=== PATIENT | female | born 1970 | race Caucasian/White ===

== ENCOUNTER 2020-06-07 12:35 | Outpatient (REF) | payer OTHER, SELFPAY ==
--- NOTE | 2020-06-07 12:43 | MM_ITS ---
EXAMINATION: MM SCREENING DIGITAL BREAST TOMOSYNTHESIS, BILATERAL CLINICAL INFORMATION: Screening. Asymptomatic. Family history breast cancer mother, age 46. The lifetime risk of breast cancer based on the Tyrer-Cuzick Model is 20%. COMPARISON: Mammography: 11/26/2018, 11/07/2017, 11/04/2016 TECHNIQUE: Digital breast tomosynthesis is performed in both the craniocaudal and mediolateral oblique views along with computer-aided detection (CAD). Synthesized 2D images are generated from the tomosynthesis. FINDINGS: The breasts are heterogeneously dense, which may obscure small masses (ACR BI-RADS breast composition Category c). Parenchymal pattern is similar to prior studies. There is no developing density or interval mass or architectural abnormality. There are scattered bilateral dermal calcifications again seen overlying the bilateral axilla. No suspicious calcifications. The skin contours are smooth. MM/MM tomosynthesis screening BI IMPRESSION: No significant changes from prior studies. ASSESSMENT: BI-RADS 2: Benign RECOMMENDATION: 1. Routine annual mammography screening. 2. The lifetime risk of breast cancer based on the Tyrer-Cuzick Model is 20%. Additional annual adjunct screening with breast MRI may be of benefit in women with a risk score of 20% or greater. This patient's information was entered into a reminder system with a target due date for their next mammogram.
== END 2020-06-07 12:36 | disposition home or self-care (01) ==
LOC: HO.MAMMO 12:35
PROVIDERS: PCP Nurse Practitioner Family; Visit Provider Nurse Practitioner Family
DX: Z12.31 Encounter for screening mammogram for malignant neoplasm of breast (principal)
CPT/HCPCS: 77063; 77067

== ENCOUNTER 2020-11-08 08:48 | Outpatient (REF) | payer OTHER, SELFPAY ==
[2020-11-08 09:20] LABS: COVID-19 Test Negative (Negative)
== END 2020-11-08 08:49 | disposition home or self-care (01) ==
LOC: HO.LAB 08:48
PROVIDERS: Visit Provider Internal Medicine
DX: Z20.822 Contact with and (suspected) exposure to COVID-19 (principal)
CPT/HCPCS: 36415; 87635; C9803

== ENCOUNTER 2021-10-27 11:35 | Inpatient (IN) | payer OTHER, SELFPAY ==
[2021-10-27 12:00] VITALS: BP 154/97; BP 168/90; PULSE 112; PULSE 113; RESP 16; TEMP 37.1; O2SAT 98; O2SAT 99; BMI 25.4
--- NOTE | 2021-10-27 12:16 | ED.PSYCH ---
HPI - Psych General Chief Complaint: Psychiatric Symptoms Stated Complaint: HALUCINATIONS,PARANOIA,SI,CALM AND COOP PER EMS Time Seen by Provider: 10/27/21 11:48 Source: patient, EMS and senior policy analyst Mode of arrival: EMS Limitations: language barrier History of Present Illness HPI Narrative: 51-year-old female previously healthy here with reports of several days of feeling anxious, unable to sleep, pacing, restless. Patient tells me that she has had thoughts of cutting her wrist. No previous history of self injury. No homicidal ideations. Patient tells me she feels very paranoid. She is hearing voices from other worlds . She tells me that she feels like someone is following her. Patient has no physical complaints. Denies any substance use. She tells me she has a longstanding history of anxiety but has never seen a therapist or psychiatrist and has never been prescribed medications for this. Related Data Allergies Allergy/AdvReac Type Severity Reaction Status Date / Time No Known Allergies Allergy Verified 10/27/21 12:12 Review of Systems Review of Systems: Yes all other systems are reviewed and are negative Constitutional: Constitutional: Reports no additional constitutional complaints, Denies body ache(s), Denies chills, Denies fever(s), Denies headache(s) and Denies weakness Eyes: Eyes: Reports no additional eye complaints and Denies change in vision ENT: Reports system reviewed and no additional complaints, except as documented, Denies dizziness, Denies headache(s), Denies nasal congestion, Denies nasal discharge and Denies neck pain Cardiovascular: Cardiovascular: Reports no additional cardiovascular complaints, Denies chest pain, Denies leg edema and Denies dyspnea Respiratory: Respiratory: Reports no additional respiratory complaints, Denies cough and Denies dyspnea Gastrointestinal: Gastrointestinal: Reports no additional gastrointestinal complaints, Denies abdominal pain, Denies diarrhea, Denies nausea and Denies vomiting Genitourinary: Genitourinary: Reports no additional female genitourinary complaints and Denies urinary incontinence Musculoskeletal: Musculoskeletal: Reports no additional musculoskeletal complaints, Denies back pain, Denies arthralgias, Denies joint swelling, Denies neck pain, Denies numbness and Denies tingling Integumentary/Breasts: Skin/Breast: Reports system reviewed and no additional complaints, except as docu and Denies rash Neurologic: Reports system reviewed and no additional complaints, except as documented, Denies Abnormal speech present, Denies dizziness, Denies headache(s), Denies numbness, Denies tingling and Denies weakness Psychiatric: Psychiatric: Reports anxiety, Reports paranoia and Reports suicidal ideation [facility] Past Medical History Attestation statement: The following information was validated with the patient. Source: old records reviewed and nursing notes reviewed Social History Social History Advance Directives: No Advance Directives Information Provided: No Patient : No Physical Exam Vital Signs: Vital Signs: Last Vital Signs Temp 98.7 F 10/27/21 12:00 Pulse 113 H 10/27/21 12:00 Resp 16 10/27/21 12:00 BP 154/97 H 10/27/21 12:00 Pulse Ox 98 10/27/21 12:00 BMI result Body Mass Index 25.4 Const: General: alert and anxious Orientation/consciousness: patient oriented x3 Limitations: no limitations HEENT: Head: Yes normal to inspection Ears: hearing grossly normal bilaterally General nose exam: Normal external nose present Face and sinus: Yes normal facial exam Mouth: Normal oral and palatal mucosa present Throat: Yes posterior oropharynx normal Eyes: General: appearance normal, both eyes and all related structures Pupils: Equal, round and reactive pupils present Neck: Neck: Yes normal visual inspection Chest: Chest palpation & inspection: normal inspection of the chest Resp: Effort & Inspection: normal respiratory effort Auscultation: clear to auscultation bilaterally Cardio: Rate: regular rate Rhythm: regular rhythm Peripheral pulses: Peripheral pulses 2+ throughout GI: Inspection: Yes normal to inspection Palpation (GI): Soft to palpation and nontender Auscultation: normal bowel sounds Back/Spine/Pelvis: Thoracic/Lumbar Spine: thoracic and lumbar spine normal to inspection Skin: General skin exam: no rashes or lesions noted Neuro: Other: +anxious General: patient oriented x3, no focal motor deficits and normal sensation to monofilament Cranial nerves: Yes CN's II-XII intact bilaterally and Yes Equal, round and reactive pupils present Cognition (Neuro): normal cognition Speech: No Abnormal speech present Gait exam (Neuro): Normal gait present Motor exam (neuro): 5/5 motor strength present throughout Extrem: General: Yes normal to inspection Course Course Course Narrative: 51-year-old female here with feeling anxious, unable to sleep, paranoid, hearing voices and with thoughts of self-injury for the last few days. Patient quite paranoid during my interview. She is restless in the room, pacing. Patient would not tell me why she was paranoid but then started to write down on a piece of paper that she feels like people are following her. No physical complaint. No concern for acute ingestion or trauma. Patient tells me she has not slept for 3-4 days which may also be contributing to her symptoms. Will check labs, urine screen, COVID screen. Patient agreeable to take some Ativan. Hopefully she can get some sleep and be evaluated by crisis after that 1710-patient was seen by [facility] crisis. Plan to re-evaluate in 24 hours when they are able to obtain more collateral information [facility] - Psych Medical Records Attestation: I reviewed the patient's medical records. Lab Data Attestation: I reviewed the patient's lab results. Result diagrams: 10/27/21 12:22 10/27/21 12:22 Labs: Lab Results 10/27/21 10/27/21 10/27/21 Range/Units 12:22 12:22 12:22 WBC 12.9 H (4.8-10.8) X10*3/uL RBC 4.77 (4.20-5.50) X10*6/uL Hgb 13.8 (12.0-16.0) g/dl Hct 43.1 (37.0-47.0) % MCV 90.4 (80.0-98.0) fL MCH 28.9 (27.0-33.0) pg MCHC 32.0 (31.0-35.0) g/dl RDW 14.2 (11.0-16.0) % Plt Count 338 (160-400) X10*3/uL MPV 9.9 (9.4-12.3) fL Immature Gran % (Auto) 0.3 (0.0-0.4) % Neut % (Auto) 71.4 (45-73) % Lymph % (Auto) 22.1 (20-40) % [place] % (Auto) 5.7 (2-11) % Eos % (Auto) 0.2 (0-4) % Baso % (Auto) 0.3 (0-2) % Lymph # (Auto) 2.9 (1.2-4.9) X10*3/uL [place] # (Auto) 0.7 (0.1-1.2) X10*3/uL Eos # (Auto) 0.0 (0.0-0.4) X10*3/uL Baso # (Auto) 0.0 (0.0-0.2) X10*3/uL Abs Immat Gran (auto) 0.04 H (0.00-0.03) X10*3/uL Absolute Neuts (auto) 9.2 H (2.0-8.3) x10*3/uL Absolute Nucleated RBC 0.000 (0.0-0.012) X10*3/uL Nucleated RBC % (auto) 0.0 (0.0-0.2) /100WBC Sodium 142 (135-145) mmol/L Potassium 3.5 (3.3-5.1) mmol/L Chloride 102 (96-108) mmol/L Carbon Dioxide 27 (22-29) mmol/L Anion Gap 17 (12-20) BUN 17 H (9-16) mg/dL Creatinine 0.82 (0.5-1.4) mg/dL Estim Creat Clear Calc 75.2 Estimated GFR > 60 Fasting Glucose 115 H (60-99) mg/dL Calcium 10.2 (8.4-10.2) mg/dL Total Bilirubin 0.4 (0.0-1.0) mg/dL Direct Bilirubin 0.2 (0.0-0.5) mg/dL AST 19 (5-31) U/L ALT 18 (0-31) U/L Alkaline Phosphatase 105 (39-117) U/L Total Protein 7.7 (6.5-8.0) g/dL Albumin 4.7 (3.5-5.0) g/dL Urine Test (NEGATIVE) Urine Opiates Screen (Not Detect) Urine Fentanyl Screen (Not Detect) Ur Barbiturates Screen (Not Detect) Ur Phencyclidine Scrn (Not Detect) Ur Amphetamines Screen (Not Detect) U Benzodiazepines Scrn (Not Detect) Urine Cocaine Screen (Not Detect) U Marijuana (THC) Screen (Not Detect) COVID-19 (IRVIN) Negative (Negative) COVID-19 Clin Com See Note 10/27/21 10/27/21 Range/Units 18:56 18:56 WBC (4.8-10.8) X10*3/uL RBC (4.20-5.50) X10*6/uL Hgb (12.0-16.0) g/dl Hct (37.0-47.0) % MCV (80.0-98.0) fL MCH (27.0-33.0) pg MCHC (31.0-35.0) g/dl RDW (11.0-16.0) % Plt Count (160-400) X10*3/uL MPV (9.4-12.3) fL Immature Gran % (Auto) (0.0-0.4) % Neut % (Auto) (45-73) % Lymph % (Auto) (20-40) % [place] % (Auto) (2-11) % Eos % (Auto) (0-4) % Baso % (Auto) (0-2) % Lymph # (Auto) (1.2-4.9) X10*3/uL [place] # (Auto) (0.1-1.2) X10*3/uL Eos # (Auto) (0.0-0.4) X10*3/uL Baso # (Auto) (0.0-0.2) X10*3/uL Abs Immat Gran (auto) (0.00-0.03) X10*3/uL Absolute Neuts (auto) (2.0-8.3) x10*3/uL Absolute Nucleated RBC (0.0-0.012) X10*3/uL Nucleated RBC % (auto) (0.0-0.2) /100WBC Sodium (135-145) mmol/L Potassium (3.3-5.1) mmol/L Chloride (96-108) mmol/L Carbon Dioxide (22-29) mmol/L Anion Gap (12-20) BUN (9-16) mg/dL Creatinine (0.5-1.4) mg/dL Estim Creat Clear Calc Estimated GFR Fasting Glucose (60-99) mg/dL Calcium (8.4-10.2) mg/dL Total Bilirubin (0.0-1.0) mg/dL Direct Bilirubin (0.0-0.5) mg/dL AST (5-31) U/L ALT (0-31) U/L Alkaline Phosphatase (39-117) U/L Total Protein (6.5-8.0) g/dL Albumin (3.5-5.0) g/dL Urine Test NEGATIVE (NEGATIVE) Urine Opiates Screen Not Detected (Not Detect) Urine Fentanyl Screen Not Detected (Not Detect) Ur Barbiturates Screen Not Detected (Not Detect) Ur Phencyclidine Scrn Not Detected (Not Detect) Ur Amphetamines Screen Not Detected (Not Detect) U Benzodiazepines Scrn Not Detected (Not Detect) Urine Cocaine Screen Not Detected (Not Detect) U Marijuana (THC) Screen Not Detected (Not Detect) COVID-19 (IRVIN) (Negative) COVID-19 Clin Com Discharge Plan Discharge Clinical Impression: Behavioral change Patient Disposition: Still a Patient
[2021-10-27 12:27] LABS: MANUAL DIFF FLAG NO
[2021-10-27] MEDS: LORazepam 1 MG TABLET 2 MG PO (12:28)
[2021-10-27 12:29] LABS: Basophils Percent Auto 0.3 % (0-2); Eosinophils Percent Auto 0.2 % (0-4); Hematocrit 43.1 % (37.0-47.0); Hemoglobin 13.8 g/dl (12.0-16.0); Imm Gran Abs Auto 0.04 X10*3/uL (0.00-0.03); Imm Gran Pct Auto 0.3 % (0.0-0.4); Lymphocytes Absolute Auto 2.9 X10*3/uL (1.2-4.9); Lymphocytes Percent Auto 22.1 % (20-40); Mean Corpuscular Hemoglobin 28.9 pg (27.0-33.0); Mean Corpuscular Volume 90.4 fL (80.0-98.0); Mean Platelet Volume 9.9 fL (9.4-12.3); Monocytes Absolute Auto 0.7 X10*3/uL (0.1-1.2); Monocytes Percent Auto 5.7 % (2-11); Neutrophils Absolute Auto 9.2 x10*3/uL (2.0-8.3); Neutrophils Percent Auto 71.4 % (45-73); Platelet Count 338 X10*3/uL (160-400); Red Blood Count 4.77 X10*6/uL (4.20-5.50); Red Cell Distribution Width 14.2 % (11.0-16.0); White Blood Count 12.9 X10*3/uL (4.8-10.8)
[2021-10-27 12:48] LABS: COVID-19 Test Negative (Negative); IDNOW Serial# 55D5AD1C
[2021-10-27 12:53] LABS: Alanine Aminotransferase 18 U/L (0-31); Albumin Level 4.7 g/dL (3.5-5.0); Alkaline Phosphatase 105 U/L (39-117); Anion Gap 17 (12-20); Aspartate Amino Transferase 19 U/L (5-31); Bilirubin Direct 0.2 mg/dL (0.0-0.5); Bilirubin Total 0.4 mg/dL (0.0-1.0); Blood Urea Nitrogen 17 mg/dL (9-16); Calcium 10.2 mg/dL (8.4-10.2); Carbon Dioxide 27 mmol/L (22-29); Chloride 102 mmol/L (96-108); Creatinine Clr Calc Pharmacy 75.2; Estimated Glomerular Filt Rate > 60; Glucose Fasting 115 mg/dL (60-99); Potassium 3.5 mmol/L (3.3-5.1); Sodium 142 mmol/L (135-145); Total Protein 7.7 g/dL (6.5-8.0)
[2021-10-27 19:14] LABS: UPreg QC Valid YES; Urine Pregnancy NEGATIVE (NEGATIVE)
[2021-10-27 19:24] LABS: Amphetamine Screen Urine Not Detected (Not Detect); Barbiturates, Urine Not Detected (Not Detect); Benzodiazepines Screen Urine Not Detected (Not Detect); Cannabinoid Screen Urine Not Detected (Not Detect); Cocaine Screen Urine Not Detected (Not Detect); Fentanyl, urine Not Detected (Not Detect); Opiate Screen Urine Not Detected (Not Detect); Phencyclidine Screen Urine Not Detected (Not Detect)
--- NOTE | 2021-10-28 04:58 | PC.NURSE ---
Patient slept total of 51/4 hours, up since 0130, calm and quiet, HR 112, reported over-thinking about family issues, denied SI/HI/AVH, provider notified/pending order, will continue to monitor
[2021-10-28 05:00] VITALS: BP 144/96; PULSE 110; RESP 18; TEMP 37.1; O2SAT 95
--- NOTE | 2021-10-28 06:03 | PC.NURSE ---
patient appears to remain at rest at present, patient seated in recliner in public area upon arrival to unit patient appears in no distress
[2021-10-28] MEDS: hydrOXYzine HCL 50 MG TABLET PO (14:36)
[2021-10-28 15:06] VITALS: BP 146/95; PULSE 94; RESP 19; TEMP 36.8; O2SAT 97
--- NOTE | 2021-10-28 18:15 | PC.NURSE ---
Nurse to nurse given to m5
--- NOTE | 2021-10-28 19:11 | PC.NURSE ---
report received from prev rn and pt is ready for transfer to with security.
[2021-10-28 21:33] VITALS: BP 161/93; PULSE 99; TEMP 36.4; O2SAT 96
[2021-10-28] MEDS: Metoprolol Tartrate 12.5 MG HALFTAB PO (21:53)
[2021-10-28] MEDS: hydrOXYzine HCL 25 MG TABLET PO (21:53)
--- NOTE | 2021-10-28 23:07 | PC.ADMIT ---
Patient is a 51 year old Urdu speaking female, admitted as a CV admission to at 1915 and placed on 15 minute checks. Patient was medically [place] in [place] [facility] [place] evaluated by [facility] and deemed in need of IPLOC secondary to decreased sleep, paranoia and thoughts to cut her wrists. Patient has no documented psychiatric history and no documented psychiatric inpatient history. Patient apparently said she was hearing voices from other worlds and feels she is being followed. Patient said she has always had a lot of anxiety but now finds she just paces all the time. The patient's about one month ago of a heart attack and patient now lives with her mother. During admission process patient was unable to recall her birthday but was able to state the date, place and situation. Patient denied any SI or HI, she did mention that I see a shadow sometimes right as I am trying to go to sleep . Patient said she hears voices but she thinks it is really a lot of her thoughts that won't go away and keep her awake at night. Patient completed all of her paperwork, orders were obtained, patient given HS medications. Patient did not rate anxiety or depression. She feels safe on the unit.
[2021-10-29] MEDS: Metoprolol Tartrate 12.5 MG HALFTAB PO ×2 (08:09→21:03)
[2021-10-29 08:11] VITALS: BP 151/72; PULSE 116; RESP 18; TEMP 37.2; O2SAT 95
[2021-10-29 08:33] LABS: Alanine Aminotransferase 17 U/L (0-31); Albumin Level 4.5 g/dL (3.5-5.0); Alkaline Phosphatase 102 U/L (39-117); Anion Gap 14 (12-20); Aspartate Amino Transferase 17 U/L (5-31); Bilirubin Total 0.5 mg/dL (0.0-1.0); Blood Urea Nitrogen 14 mg/dL (9-16); Calcium 10.1 mg/dL (8.4-10.2); Carbon Dioxide 29 mmol/L (22-29); Chloride 105 mmol/L (96-108); Cholesterol 197 mg/dL; Creatinine Clr Calc Pharmacy 76.2; Estimated Glomerular Filt Rate > 60; Glucose Fasting 108 mg/dL (60-99); HDL Cholesterol 50 mg/dL; LDL Cholesterol Calculated 113 mg/dl; Potassium 3.7 mmol/L (3.3-5.1); Sodium 144 mmol/L (135-145); Total Protein 7.3 g/dL (6.5-8.0); Triglycerides 171 mg/dL
--- NOTE | 2021-10-29 10:38 | HO.PSYADMNOT ---
HPI Date of Service: 10/29/21 Chief Complaint: Psychosis Sources of Information: patient interviewed, chart reviewed and crisis/core team assessment reviewed HPI Subjective Notes: [place] Warning and Conditional Voluntary Narrative: Seen with [place]-speaking staff Patient is a 51-year-old female with a history of anxiety who presents for severe depression, suicidality and auditory hallucinations in the face of worsening depression after her this past June 2021. Patient reports that she has a history of anxiety however she has always been able to function, work and has overall been okay. Her a few months ago however and since then she has become very depressed. Patient says that she has not gone shopping, does not do her house chores, has low energy, low appetite even having lost weight, diminished interest in things and has begun to have thoughts of wishing she were . It is unclear what made things worse this past week however she started having auditory hallucinations a voices though they are indistinguishable and though exhausted and wanting to sleep finding it difficult to do so given these irritating voices; this is has been overwhelming and she started wanting to cut her wrists. Patient however came to the emergency room. Patient says she wants help sleeping and wants the voices to go away. She has no history of any psychiatric medications or therapy; patient denies history of trauma, denies history of manic type behaviors or episodes, denies any history of some alcohol or substance use. Patient agrees to starting Remeron (sports writer reviewed risks/side effects); she also agrees to stay start a trial of Seroquel as a p.r.n. for anxiety. Patient's UA positive; patient also has dysuria agrees to start antibiotics. Past Psychiatric History: History of anxiety; no history of any psychiatric medications or therapy Medical Evaluation Reviewed: Yes [facility] Medical History (Updated 10/29/21 @ 18:49 by Shiva Mars MD) Anxiety Family History: Denies Social History: , now since this past June 2021; currently living with her mother; no kids Substance History: Denied Trauma History: Denies Diagnostics Vital Signs (24Hr): Vital Signs - 24 hr 10/28/21 15:06 10/28/21 21:33 10/29/21 08:11 Temperature 98.2 F 97.5 F 98.9 F Pulse Rate 94 99 116 H Respiratory Rate 19 18 Blood Pressure 146/95 H 161/93 H 151/72 H Pulse Oximetry 97 96 95 BMI result Body Mass Index 25.4 Labs Results: 10/27/21 12:22 10/29/21 07:59 Labs: Laboratory Results - last 48 hr 10/27/21 10/27/21 10/27/21 12:22 12:22 12:22 WBC 12.9 H RBC 4.77 Hgb 13.8 Hct 43.1 MCV 90.4 MCH 28.9 MCHC 32.0 RDW 14.2 Plt Count 338 MPV 9.9 Immature Gran % (Auto) 0.3 Neut % (Auto) 71.4 Lymph % (Auto) 22.1 [place] % (Auto) 5.7 Eos % (Auto) 0.2 Baso % (Auto) 0.3 Lymph # (Auto) 2.9 [place] # (Auto) 0.7 Eos # (Auto) 0.0 Baso # (Auto) 0.0 Abs Immat Gran (auto) 0.04 H Absolute Neuts (auto) 9.2 H Absolute Nucleated RBC 0.000 Nucleated RBC % (auto) 0.0 Sodium 142 Potassium 3.5 Chloride 102 Carbon Dioxide 27 Anion Gap 17 BUN 17 H Creatinine 0.82 Estim Creat Clear Calc 75.2 Estimated GFR > 60 Fasting Glucose 115 H Calcium 10.2 Total Bilirubin 0.4 Direct Bilirubin 0.2 AST 19 ALT 18 Alkaline Phosphatase 105 Total Protein 7.7 Albumin 4.7 Triglycerides Cholesterol LDL Cholesterol, Calc HDL Cholesterol Urine Test Urine Opiates Screen Urine Fentanyl Screen Ur Barbiturates Screen Ur Phencyclidine Scrn Ur Amphetamines Screen U Benzodiazepines Scrn Urine Cocaine Screen U Marijuana (THC) Screen COVID-19 (IRVIN) Negative COVID-19 Clin Com See Note 10/27/21 10/27/21 10/29/21 18:56 18:56 07:59 WBC RBC Hgb Hct MCV MCH MCHC RDW Plt Count MPV Immature Gran % (Auto) Neut % (Auto) Lymph % (Auto) [place] % (Auto) Eos % (Auto) Baso % (Auto) Lymph # (Auto) [place] # (Auto) Eos # (Auto) Baso # (Auto) Abs Immat Gran (auto) Absolute Neuts (auto) Absolute Nucleated RBC Nucleated RBC % (auto) Sodium 144 Potassium 3.7 Chloride 105 Carbon Dioxide 29 Anion Gap 14 BUN 14 Creatinine 0.81 Estim Creat Clear Calc 76.2 Estimated GFR > 60 Fasting Glucose 108 H Calcium 10.1 Total Bilirubin 0.5 Direct Bilirubin AST 17 ALT 17 Alkaline Phosphatase 102 Total Protein 7.3 Albumin 4.5 Triglycerides 171 Cholesterol 197 LDL Cholesterol, Calc 113 HDL Cholesterol 50 Urine Test NEGATIVE Urine Opiates Screen Not Detected Urine Fentanyl Screen Not Detected Ur Barbiturates Screen Not Detected Ur Phencyclidine Scrn Not Detected Ur Amphetamines Screen Not Detected U Benzodiazepines Scrn Not Detected Urine Cocaine Screen Not Detected U Marijuana (THC) Screen Not Detected COVID-19 (IRVIN) COVID-19 Clin Com Meds/Allergies Meds Home Medications Acetaminophen (Acetaminophen 325 Mg Tablet) 650 mg PO Q6H PRN PRN Reason: Headache/Pain Mild Scale (1-3) Al Hydroxide/Mg Hydroxide (Magnesium Hydrox/Alum Hydrox 30 Ml Oral.Susp) 30 ml PO Q6H PRN PRN Reason: Heartburn/Nausea Hydroxyzine HCl (Hydroxyzine Hcl 25 Mg Tablet) 25 mg PO BEDTIME PRN PRN Reason: Anxiety Last Admin: 10/28/21 21:53 Dose: 25 mg Documented by: Levofloxacin (Levofloxacin 500 Mg Tablet) 500 mg PO Q24H [facility] Stop: 11/04/21 16:01 Last Admin: 10/29/21 16:45 Dose: 500 mg Documented by: Magnesium Hydroxide (Milk Of Magnesia 30 Ml Oral.Susp) 30 ml PO DAILY PRN PRN Reason: Constipation Metoprolol Tartrate (Metoprolol Tartrate 12.5 Mg Halftab) 12.5 mg PO BID [facility]; Protocol Last Admin: 10/29/21 08:09 Dose: 12.5 mg Documented by: Mirtazapine (Mirtazapine 7.5 Mg Tablet) 7.5 mg PO BEDTIME BASIL Quetiapine Fumarate (Quetiapine Fumarate 50 Mg Tablet) 50 mg PO Q2H PRN PRN Reason: anxiety/AH Trazodone HCl (Trazodone Hcl 50 Mg Tablet) 50 mg PO BEDTIME PRN PRN Reason: Insomnia Allergies Allergies Allergy/AdvReac Type Severity Reaction Status Date / Time No Known Allergies Allergy Verified 10/27/21 12:12 Mental Status Exam Mental Status Exam Narrative: Pt is alert and oriented; behavior is cooperative, tearful;; dressed in hospital attire with unkempt hair but adequate hygiene; mood is described as depressed and affect congruent, downcaste; limited eye contact; Speech is soft spoken; normal prosody and not pressured; psychomotor retardation present; thought process is organized and goal directed; Thought content is on wanting to sleep, relief from AH; otherwise pertinent to relevant topics and without any delusional content, paranoid ideations or grandiosity; denies any SI/HI. AH of voices though indistinguishable; Patients insight and judgment are impaired Assessment & Plan Assessment & Plan (1) MDD (major depressive disorder), single episode, severe with psychosis: Status: Acute Code(s): F32.3 - Major depressive disorder, single episode, severe with psychotic features (2) Anxiety: Status: Acute Code(s): F41.9 - Anxiety disorder, unspecified Plan Patient is a 51-year-old female with a history of anxiety who presents for severe depression, suicidality and auditory hallucinations in the face of worsening depression after her this past June 2021. It is unclear what caused exacerbation this past week. Patient has no history of medication trials or therapy She agrees to start Remeron at bedtime for depression and anxiety and Seroquel as a p.r.n. for anxiety Plan: Patient on CV Q 15 minute checks Remeron 7.5 mg q.h.s. Seroquel 50 mg p.r.n. for anxiety Levaquin 500 mg daily for 7 days for UTI; sports writer consulted Dr. Torres who recommended this antibiotic for UTI Patient educated on: diagnosis, medication risk/benefits and medical condition Informed Consent: understands Reason for continued inpatient stay Substantial Risk for: rapid decompensation
[2021-10-29 10:56] LABS: Appearance Urine CLEAR; Color Urine STRAW; Glucose Urine UA NEG (NEG); Leukocyte Esterase Urine 2+ (NEG); Nitrite Urine NEG (NEG); PH 6.5 (5.0-8.0); UACC Culture Trigger YES; Urine Blood NEG (NEG); Urine Ketones NEG (NEG); Urine Protein NEG (NEG-TRACE)
[2021-10-29 11:01] LABS: Bacteria Urine 2+ /LPF; RBC Urine 0 /HPF (0); Squamous Epithelial Cell Urine 1+ /LPF; UACC CULT YES
[2021-10-29] MEDS: QUEtiapine Fumarate 25 MG TABLET PO (11:38)
[2021-10-29] MEDS: levoFLOXacin 500 MG TABLET PO (16:45)
[2021-10-29 21:00] VITALS: BP 144/68; PULSE 122; TEMP 36.9; O2SAT 97
[2021-10-29] MEDS: Mirtazapine 7.5 MG TABLET PO (21:03)
[2021-10-29] MEDS: QUEtiapine Fumarate 50 MG TABLET PO (23:43)
[2021-10-29] MEDS: hydrOXYzine HCL 25 MG TABLET PO (23:44)
[2021-10-30] MEDS: Metoprolol Tartrate 12.5 MG HALFTAB PO ×2 (08:01→21:09)
[2021-10-30 08:02] VITALS: BP 129/80; PULSE 108; RESP 18; TEMP 36.6; O2SAT 98
--- NOTE | 2021-10-30 10:42 | HO.PSYCHPN ---
Subjective Subjective Date of Service: 10/30/21 Reason For Visit: Psychosis Interim History: seen w/ strategic communications manager pt remains depressed with intermittent sI; still trouble sleeping due to AH. sign writer hand discussed how this is deu to depression which pt accepts. She Agrees to increase Mirtazapine and add Seroquel 50mg qhs for insomnia. No other complaints, no requests. Mental Status Exam Mental Status Exam Narrative: Pt is alert and oriented; behavior is cooperative, calmer; dressed in hospital attire with unkempt hair but adequate hygiene; mood is described as depressed and affect congruent, but calmer and not tearful; adequate eye contact; Speech is soft spoken; normal prosody and not pressured; psychomotor retardation present; thought process is organized and goal directed; Thought content is on wanting relief from AH; otherwise pertinent to relevant topics and without any delusional content, paranoid ideations or grandiosity expressed; passive SI; no HI.? AH of voices which are non-distinct;? Patients insight and judgment are impaired Diagnostics Vital Signs (24Hr): Vital Signs - 24 hr 10/29/21 21:00 10/30/21 08:02 Temperature 98.4 F 97.8 F Pulse Rate 122 H 108 H Respiratory Rate 18 Blood Pressure 144/68 H 129/80 Pulse Oximetry 97 98 BMI result Body Mass Index 25.4 Labs Results: 10/27/21 12:22 10/29/21 07:59 Labs: Laboratory Results - last 48 hr 10/29/21 10/29/21 07:59 10:46 Sodium 144 Potassium 3.7 Chloride 105 Carbon Dioxide 29 Anion Gap 14 BUN 14 Creatinine 0.81 Estim Creat Clear Calc 76.2 Estimated GFR > 60 Fasting Glucose 108 H Calcium 10.1 Total Bilirubin 0.5 AST 17 ALT 17 Alkaline Phosphatase 102 Total Protein 7.3 Albumin 4.5 Triglycerides 171 Cholesterol 197 LDL Cholesterol, Calc 113 HDL Cholesterol 50 Urine Color STRAW Urine Appearance CLEAR Urine pH 6.5 Ur Specific [place] 1.010 Urine Protein NEG Urine Glucose (UA) NEG Urine Ketones NEG Urine Blood NEG Urine Nitrite NEG Ur Leukocyte Esterase 2+ H Urine RBC 0 Urine WBC 5-9 H Ur Squamous Epith Cells 1+ Urine Bacteria 2+ Medications Medications Current Medications Acetaminophen (Acetaminophen 325 Mg Tablet) 650 mg PO Q6H PRN PRN Reason: Headache/Pain Mild Scale (1-3) Al Hydroxide/Mg Hydroxide (Magnesium Hydrox/Alum Hydrox 30 Ml Oral.Susp) 30 ml PO Q6H PRN PRN Reason: Heartburn/Nausea Hydroxyzine HCl (Hydroxyzine Hcl 25 Mg Tablet) 25 mg PO BEDTIME PRN PRN Reason: Anxiety Last Admin: 10/29/21 23:44 Dose: 25 mg Documented by: Levofloxacin (Levofloxacin 500 Mg Tablet) 500 mg PO Q24H [facility] Stop: 11/04/21 16:01 Last Admin: 10/29/21 16:45 Dose: 500 mg Documented by: Magnesium Hydroxide (Milk Of Magnesia 30 Ml Oral.Susp) 30 ml PO DAILY PRN PRN Reason: Constipation Metoprolol Tartrate (Metoprolol Tartrate 12.5 Mg Halftab) 12.5 mg PO BID [facility]; Protocol Last Admin: 10/30/21 08:01 Dose: 12.5 mg Documented by: Mirtazapine (Mirtazapine 7.5 Mg Tablet) 7.5 mg PO BEDTIME [facility] Last Admin: 10/29/21 21:03 Dose: 7.5 mg Documented by: Quetiapine Fumarate (Quetiapine Fumarate 50 Mg Tablet) 50 mg PO Q2H PRN PRN Reason: anxiety/AH Last Admin: 10/29/21 23:43 Dose: 50 mg Documented by: Trazodone HCl (Trazodone Hcl 50 Mg Tablet) 50 mg PO BEDTIME PRN PRN Reason: Insomnia Allergies Allergies Allergy/AdvReac Type Severity Reaction Status Date / Time No Known Allergies Allergy Verified 10/27/21 12:12 Assessment & Plan Assessment & Plan (1) MDD (major depressive disorder), single episode, severe with psychosis: Status: Acute Code(s): F32.3 - Major depressive disorder, single episode, severe with psychotic features (2) Anxiety: Status: Acute Code(s): F41.9 - Anxiety disorder, unspecified Plan Patient is a 51-year-old female with a history of anxiety who presents for severe depression, suicidality and auditory hallucinations in the face of worsening depression after her this past June 2021. It is unclear what caused exacerbation this past week. Patient has no history of medication trials or therapy She agrees to start Remeron at bedtime for depression and anxiety and Seroquel as a p.r.n. for anxiety 10/30 remains depressed with AH; agrees to increase in meds Plan: Patient on CV Q 15 minute checks INcrease to Remeron 15 mg q.h.s. Add Seroquel 50 mg Qhs for insomnia, voices Seroquel 25mg prn for anxiety Levaquin 500 mg daily for 7 days for UTI; sign writer hand consulted Dr. 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 Patient educated on: diagnosis Informed Consent: understands Reason for contiued inpatient stay Substantial Risk for: rapid decompensation
[2021-10-30] MEDS: levoFLOXacin 500 MG TABLET PO (16:07)
[2021-10-30] MEDS: QUEtiapine Fumarate 50 MG TABLET PO ×2 (17:32→21:09)
[2021-10-30 19:40] VITALS: BP 110/70; PULSE 134; TEMP 36.7; O2SAT 98
[2021-10-30] MEDS: Mirtazapine 15 MG TABLET PO (21:09)
[2021-10-30] MEDS: hydrOXYzine HCL 25 MG TABLET PO (22:17)
[2021-10-31 07:00] VITALS: BMI 25.9
[2021-10-31] MEDS: Metoprolol Tartrate 12.5 MG HALFTAB PO ×2 (08:38→21:06)
[2021-10-31 08:39] VITALS: BP 108/79; PULSE 117; RESP 18; TEMP 36.8; O2SAT 100
[2021-10-31] MEDS: levoFLOXacin 500 MG TABLET PO (16:03)
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
[2021-10-31 17:09] VITALS: BP 175/95; PULSE 114; RESP 22; TEMP 36.7; O2SAT 100
[2021-10-31 20:58] VITALS: BP 163/92; PULSE 118; RESP 19
[2021-10-31] MEDS: risperiDONE 0.5 MG TABLET PO (21:05)
[2021-10-31] MEDS: traZODone HCL 50 MG TABLET PO (21:05)
[2021-10-31] MEDS: Mirtazapine 15 MG TABLET PO (21:06)
[2021-10-31 22:19] VITALS: BP 126/77; PULSE 108
[2021-11-01] MEDS: Metoprolol Tartrate 12.5 MG HALFTAB PO ×2 (07:46→20:32)
[2021-11-01 07:51] VITALS: BP 136/66; PULSE 136; RESP 18; TEMP 36.2; O2SAT 98
[2021-11-01] MEDS: risperiDONE 0.5 MG TABLET PO ×2 (08:55→20:32)
[2021-11-01] MEDS: levoFLOXacin 500 MG TABLET PO (16:38)
--- NOTE | 2021-11-01 17:22 | P.PNPSI_ITS ---
Subjective Subjective Date of Service: 11/01/21 Reason For Visit: Psychosis Interim History: Reports voices are still present. They are murmurs, noises, non-command. Team reports Risperdal is initiated with some increase in sx-pt struggling to take her doses but eventually accepted. States the 50 mg pill is too high for me Reports sleep, appetite are intact. Reports she is not suicidal, with no plan or intent. Medication Compliance: Yes Side effects from medications: No Attending Groups: No Review of Systems Medical Review of Systems: unchanged Review of Systems Psychiatric: Reports anxiety, Reports auditory hallucinations, Reports paranoia and Reports suicidal ideation (denies) Mental Status Exam Mental Status Exam Patient Appearance: Appropriate Patient Orientation: Person, Place and Situation Level of Consciousness: Alert Patient Behavior: Guarded, Talkative, Suspicious and Good Eye Contact Mood Description: Suspicious Affect Description: Flat Patient Cognition Impaired: No Ability to Follow Directions: Good Speech Pattern: Spontaneous Speech and Soft-Spoken Memory Description: Intact Hallucinations: Auditory Delusions: Paranoid Ideation Thought Process: Distracted Thought Content: positive for [place] and positive for Suicidal Ideation (denies) Judgement: Fair Diagnostics Vital Signs (24Hr): Vital Signs - 24 hr 10/31/21 20:58 10/31/21 22:19 11/01/21 07:51 Temperature 97.2 F Pulse Rate 118 H 108 H 136 H Respiratory Rate 19 18 Blood Pressure 163/92 H 126/77 136/66 Pulse Oximetry 98 BMI result Body Mass Index 25.9 Labs Results: 10/27/21 12:22 10/29/21 07:59 Medications Medications Current Medications Acetaminophen (Acetaminophen 325 Mg Tablet) 650 mg PO Q6H PRN PRN Reason: Headache/Pain Mild Scale (1-3) Al Hydroxide/Mg Hydroxide (Magnesium Hydrox/Alum Hydrox 30 Ml Oral.Susp) 30 ml PO Q6H PRN PRN Reason: Heartburn/Nausea Hydroxyzine HCl (Hydroxyzine Hcl 25 Mg Tablet) 25 mg PO BEDTIME PRN PRN Reason: Anxiety Last Admin: 10/30/21 22:17 Dose: 25 mg Documented by: Levofloxacin (Levofloxacin 500 Mg Tablet) 500 mg PO Q24H [facility] Stop: 11/04/21 16:01 Last Admin: 11/01/21 16:38 Dose: 500 mg Documented by: Magnesium Hydroxide (Milk Of Magnesia 30 Ml Oral.Susp) 30 ml PO DAILY PRN PRN Reason: Constipation Metoprolol Tartrate (Metoprolol Tartrate 12.5 Mg Halftab) 12.5 mg PO BID [facility]; Protocol Last Admin: 11/01/21 07:46 Dose: 12.5 mg Documented by: Mirtazapine (Mirtazapine 15 Mg Tablet) 15 mg PO BEDTIME [facility] Last Admin: 10/31/21 21:06 Dose: 15 mg Documented by: Quetiapine Fumarate (Quetiapine Fumarate 25 Mg Tablet) 25 mg PO Q2H PRN PRN Reason: anxiety/AH Risperidone (Risperidone 0.5 Mg Tablet) 0.5 mg PO BID [facility] Last Admin: 11/01/21 08:55 Dose: 0.5 mg Documented by: Trazodone HCl (Trazodone Hcl 50 Mg Tablet) 50 mg PO BEDTIME [facility] Last Admin: 10/31/21 21:05 Dose: 50 mg Documented by: Allergies Allergies Allergy/AdvReac Type Severity Reaction Status Date / Time No Known Allergies Allergy Verified 10/27/21 12:12 Assessment & Plan Assessment & Plan (1) MDD (major depressive disorder), single episode, severe with psychosis: Status: Acute Code(s): F32.3 - Major depressive disorder, single episode, severe with psychotic features (2) Anxiety: Status: Acute Code(s): F41.9 - Anxiety disorder, unspecified Plan Patient is a 51-year-old female with a history of anxiety who presents for severe depression, suicidality and auditory hallucinations in the face of worsening depression after her this past June 2021. It is unclear what caused exacerbation this past week. Patient has no history of medication trials or therapy She agrees to start Remeron at bedtime for depression and anxiety and Seroquel as a p.r.n. for anxiety 10/30 remains depressed with AH; agrees to increase in meds 11/01 Continue current regime-no changes today. Plan: Patient on CV Q 15 minute checks INcrease to Remeron 15 mg q.h.s. Add Seroquel 50 mg Qhs for insomnia, voices Seroquel 25mg prn for anxiety Levaquin 500 mg daily for 7 days for UTI; keno writer/runner consulted Dr. 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 Patient educated on: therapeutic strategies Informed Consent: further education needed Reason for contiued inpatient stay Substantial Risk for: inability to function and rapid decompensation
[2021-11-01 20:25] VITALS: BP 156/84; PULSE 104
[2021-11-01] MEDS: Mirtazapine 15 MG TABLET PO (20:33)
[2021-11-01] MEDS: traZODone HCL 50 MG TABLET PO (20:35)
[2021-11-02] MEDS: QUEtiapine Fumarate 25 MG TABLET PO ×2 (01:21→19:13)
[2021-11-02] MEDS: risperiDONE 0.5 MG TABLET PO (08:15)
[2021-11-02] MEDS: Metoprolol Tartrate 12.5 MG HALFTAB PO ×2 (08:15→19:48)
[2021-11-02 08:17] VITALS: BP 149/80; PULSE 110; RESP 18; TEMP 36.7; O2SAT 97
[2021-11-02] MEDS: OLANZapine ODT 10 MG TAB.RAPDIS TRANSLINGU ×2 (13:34→19:49)
[2021-11-02] MEDS: levoFLOXacin 500 MG TABLET PO (16:08)
--- NOTE | 2021-11-02 18:37 | HO.PSYCHPN ---
Subjective Subjective Date of Service: 11/02/21 Reason For Visit: Psychosis Interim History: Pt awake most of the night, wandering into others rooms. Verbalized SI. Safety checks changed to 5 minute. Risperdal changed to Olanzapine. Pt reports feeling isolated. Family visits help. Continues to require database marketing specialist assistance to communicate with team. María Harper RN assisted pt in interpretation. Psychosis persists Medication Compliance: Yes Side effects from medications: No Attending Groups: No Review of Systems Acute medical concerns: No Medical Review of Systems: unchanged Mental Status Exam Mental Status Exam Patient Appearance: Appropriate Patient Orientation: Person, Place and Situation Level of Consciousness: Alert Patient Behavior: Guarded, Talkative, Suspicious and Good Eye Contact Mood Description: Suspicious Affect Description: Flat Patient Cognition Impaired: No Ability to Follow Directions: Good Speech Pattern: Spontaneous Speech and Soft-Spoken Memory Description: Intact Hallucinations: Auditory Delusions: Paranoid Ideation Thought Process: Distracted Thought Content: positive for [place] and positive for Suicidal Ideation (denies) Judgement: Fair Diagnostics Vital Signs (24Hr): Vital Signs - 24 hr 11/01/21 20:25 11/02/21 08:17 Temperature 98.0 F Pulse Rate 104 H 110 H Respiratory Rate 18 Blood Pressure 156/84 H 149/80 H Pulse Oximetry 97 BMI result Body Mass Index 25.9 Labs Results: 10/27/21 12:22 10/29/21 07:59 Medications Medications Current Medications Acetaminophen (Acetaminophen 325 Mg Tablet) 650 mg PO Q6H PRN PRN Reason: Headache/Pain Mild Scale (1-3) Al Hydroxide/Mg Hydroxide (Magnesium Hydrox/Alum Hydrox 30 Ml Oral.Susp) 30 ml PO Q6H PRN PRN Reason: Heartburn/Nausea Hydroxyzine HCl (Hydroxyzine Hcl 25 Mg Tablet) 25 mg PO BEDTIME PRN PRN Reason: Anxiety Last Admin: 10/30/21 22:17 Dose: 25 mg Documented by: Levofloxacin (Levofloxacin 500 Mg Tablet) 500 mg PO Q24H [facility] Stop: 11/04/21 16:01 Last Admin: 11/02/21 16:08 Dose: 500 mg Documented by: Magnesium Hydroxide (Milk Of Magnesia 30 Ml Oral.Susp) 30 ml PO DAILY PRN PRN Reason: Constipation Metoprolol Tartrate (Metoprolol Tartrate 12.5 Mg Halftab) 12.5 mg PO BID [facility]; Protocol Last Admin: 11/02/21 08:15 Dose: 12.5 mg Documented by: Mirtazapine (Mirtazapine 15 Mg Tablet) 15 mg PO BEDTIME [facility] Last Admin: 11/01/21 20:33 Dose: 15 mg Documented by: Olanzapine (Olanzapine Odt 10 Mg Tab.Rapdis) 10 mg TRANSLINGU BID [facility] Last Admin: 11/02/21 13:34 Dose: 10 mg Documented by: Quetiapine Fumarate (Quetiapine Fumarate 25 Mg Tablet) 25 mg PO Q2H PRN PRN Reason: anxiety/AH Last Admin: 11/02/21 01:21 Dose: 25 mg Documented by: Trazodone HCl (Trazodone Hcl 25 Mg Halftab) 25 mg PO BEDTIME [facility] Allergies Allergies Allergy/AdvReac Type Severity Reaction Status Date / Time No Known Allergies Allergy Verified 10/27/21 12:12 Assessment & Plan Assessment & Plan (1) MDD (major depressive disorder), single episode, severe with psychosis: Status: Acute Code(s): F32.3 - Major depressive disorder, single episode, severe with psychotic features (2) Anxiety: Status: Acute Code(s): F41.9 - Anxiety disorder, unspecified Plan Patient is a 51-year-old female with a history of anxiety who presents for severe depression, suicidality and auditory hallucinations in the face of worsening depression after her this past June 2021. It is unclear what caused exacerbation this past week. Patient has no history of medication trials or therapy She agrees to start Remeron at bedtime for depression and anxiety and Seroquel as a p.r.n. for anxiety 10/30 remains depressed with AH; agrees to increase in meds 11/01 Continue current regime-no changes today. 11/02-Discontinue Risperdal. Olanzapine SL (Zydis) 10 mg bid Plan: Patient on CV Q 15 minute checks INcrease to Remeron 15 mg q.h.s. Add Seroquel 50 mg Qhs for insomnia, voices Seroquel 25mg prn for anxiety Levaquin 500 mg daily for 7 days for UTI; junior technical writer consulted Dr. 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 Patient educated on: medication risk/benefits Informed Consent: further education needed Reason for contiued inpatient stay Substantial Risk for: harm to self, inability to function and rapid decompensation
[2021-11-02 19:35] VITALS: BP 137/80; PULSE 110; TEMP 36.9
[2021-11-02] MEDS: Mirtazapine 15 MG TABLET PO (19:49)
[2021-11-03] MEDS: OLANZapine ODT 10 MG TAB.RAPDIS TRANSLINGU ×2 (08:36→21:04)
[2021-11-03] MEDS: Metoprolol Tartrate 12.5 MG HALFTAB PO ×2 (08:36→21:04)
[2021-11-03 08:37] VITALS: BP 136/85; PULSE 135; RESP 18; TEMP 36.8; O2SAT 98
--- NOTE | 2021-11-03 15:38 | HO.PSYCHPN ---
Subjective Subjective Date of Service: 11/03/21 Reason For Visit: Psychosis Interim History: Symptoms of insomnia, psychosis persist. Pt acknowledged SI. States she will be able to inform the team if she is feeling like harming herself. Feeling tired, but unable to rest she reports. Follows another male peer, who has attempted to support pt. Team report she was awake for most of the night, however not intrusive as she was the night before. Medication Compliance: Yes Side effects from medications: No Attending Groups: No Review of Systems Acute medical concerns: No Mental Status Exam Mental Status Exam Patient Appearance: Appropriate Patient Orientation: Person, Place and Situation Level of Consciousness: Alert Patient Behavior: Guarded, Talkative, Suspicious and Good Eye Contact Mood Description: Suspicious Affect Description: Flat Patient Cognition Impaired: No Ability to Follow Directions: Good Speech Pattern: Spontaneous Speech and Soft-Spoken Memory Description: Intact Hallucinations: Auditory Delusions: Paranoid Ideation Thought Process: Distracted Thought Content: positive for [place] and positive for Suicidal Ideation Depressive Symptoms: Insomnia and Difficulty Sleeping Judgement: Fair Diagnostics Vital Signs (24Hr): Vital Signs - 24 hr 11/02/21 19:35 11/03/21 08:37 Temperature 98.5 F 98.3 F Pulse Rate 110 H 135 H Respiratory Rate 18 Blood Pressure 137/80 136/85 Pulse Oximetry 98 BMI result Body Mass Index 25.9 Labs Results: 10/27/21 12:22 10/29/21 07:59 Medications Medications Current Medications Acetaminophen (Acetaminophen 325 Mg Tablet) 650 mg PO Q6H PRN PRN Reason: Headache/Pain Mild Scale (1-3) Al Hydroxide/Mg Hydroxide (Magnesium Hydrox/Alum Hydrox 30 Ml Oral.Susp) 30 ml PO Q6H PRN PRN Reason: Heartburn/Nausea Hydroxyzine HCl (Hydroxyzine Hcl 25 Mg Tablet) 25 mg PO BEDTIME PRN PRN Reason: Anxiety Last Admin: 10/30/21 22:17 Dose: 25 mg Documented by: Levofloxacin (Levofloxacin 500 Mg Tablet) 500 mg PO Q24H [facility] Stop: 11/04/21 16:01 Last Admin: 11/02/21 16:08 Dose: 500 mg Documented by: Magnesium Hydroxide (Milk Of Magnesia 30 Ml Oral.Susp) 30 ml PO DAILY PRN PRN Reason: Constipation Metoprolol Tartrate (Metoprolol Tartrate 12.5 Mg Halftab) 12.5 mg PO BID [facility]; Protocol Last Admin: 11/03/21 08:36 Dose: 12.5 mg Documented by: Mirtazapine (Mirtazapine 15 Mg Tablet) 15 mg PO BEDTIME [facility] Last Admin: 11/02/21 19:49 Dose: 15 mg Documented by: Olanzapine (Olanzapine Odt 10 Mg Tab.Rapdis) 10 mg TRANSLINGU BID [facility] Last Admin: 11/03/21 08:36 Dose: 10 mg Documented by: Quetiapine Fumarate (Quetiapine Fumarate 25 Mg Tablet) 25 mg PO Q2H PRN PRN Reason: anxiety/AH Last Admin: 11/02/21 19:13 Dose: 25 mg Documented by: Trazodone HCl (Trazodone Hcl 25 Mg Halftab) 25 mg PO BEDTIME [facility] Last Admin: 11/02/21 19:51 Dose: Not Given Documented by: Allergies Allergies Allergy/AdvReac Type Severity Reaction Status Date / Time No Known Allergies Allergy Verified 10/27/21 12:12 Assessment & Plan Assessment & Plan (1) MDD (major depressive disorder), single episode, severe with psychosis: Status: Acute Code(s): F32.3 - Major depressive disorder, single episode, severe with psychotic features (2) Anxiety: Status: Acute Code(s): F41.9 - Anxiety disorder, unspecified Plan Patient is a 51-year-old female with a history of anxiety who presents for severe depression, suicidality and auditory hallucinations in the face of worsening depression after her this past June 2021. It is unclear what caused exacerbation this past week. Patient has no history of medication trials or therapy She agrees to start Remeron at bedtime for depression and anxiety and Seroquel as a p.r.n. for anxiety 10/30 remains depressed with AH; agrees to increase in meds 11/01 Continue current regime-no changes today. 11/02-Discontinue Risperdal. Olanzapine SL (Zydis) 10 mg bid 11/03- Chlorpromazine 50 mg hs, Discontinue Seroquel, Benztropine 1 mg bid Plan: Patient on CV Q 15 minute checks INcrease to Remeron 15 mg q.h.s. Add Seroquel 50 mg Qhs for insomnia, voices Seroquel 25mg prn for anxiety Levaquin 500 mg daily for 7 days for UTI; engineering technical writer consulted Dr. 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 Patient educated on: medication risk/benefits and therapeutic strategies Informed Consent: further education needed Reason for contiued inpatient stay Substantial Risk for: harm to self, harm to others, inability to function and rapid decompensation
[2021-11-03] MEDS: levoFLOXacin 500 MG TABLET PO (15:41)
[2021-11-03 20:45] VITALS: BP 107/70; PULSE 106
[2021-11-03] MEDS: Benztropine Mesylate 1 MG TABLET PO (21:04)
[2021-11-03] MEDS: traZODone HCL 25 MG HALFTAB PO (21:04)
[2021-11-03] MEDS: Mirtazapine 15 MG TABLET PO (21:04)
[2021-11-03] MEDS: chlorproMAZINE HCl 25 MG TABLET 50 MG PO (21:04)
[2021-11-04 06:00] VITALS: BP 146/81; PULSE 108; RESP 16; TEMP 37.1; O2SAT 98
[2021-11-04] MEDS: OLANZapine ODT 10 MG TAB.RAPDIS TRANSLINGU (09:02)
[2021-11-04] MEDS: Metoprolol Tartrate 12.5 MG HALFTAB PO ×2 (09:02→21:18)
[2021-11-04] MEDS: Benztropine Mesylate 1 MG TABLET PO (09:02)
--- NOTE | 2021-11-04 15:14 | PC.NURSE ---
T/w brought pt to shave. Pt shaved peach fuzz off face, and was joking with t/w about the amount of shaving cream she used. Pt was putting the cap on the razor and turned to t/w and stated I dont want to live anymore and held the razor to her wrist. T/w immediately grabbed pt's wrist and attempted to grab razor away. Pt resisted a little bit but did give razor back to t/w. and charge nurse aware.
[2021-11-04] MEDS: levoFLOXacin 500 MG TABLET PO (16:09)
[2021-11-04 18:00] VITALS: BP 140/84; PULSE 84; RESP 18; TEMP 36.6; O2SAT 98
--- NOTE | 2021-11-04 19:39 | HO.PSYCHPN ---
Subjective Subjective Date of Service: 11/04/21 Reason For Visit: Psychosis Interim History: Pt continues to report inability to sleep. She reports suicidality. She used a safety razor today to attend to her hygiene, supervised, and precipitously put it to her wrist, telling her nurse she wanted to cut herself and . Medication Compliance: Yes Side effects from medications: No Attending Groups: No Review of Systems Acute medical concerns: No Medical Review of Systems: unchanged Mental Status Exam Mental Status Exam Patient Appearance: Appropriate Patient Orientation: Person, Place and Situation Level of Consciousness: Alert Patient Behavior: Guarded, Talkative, Suspicious and Good Eye Contact Mood Description: Suspicious Affect Description: Flat Patient Cognition Impaired: No Ability to Follow Directions: Good Speech Pattern: Spontaneous Speech and Soft-Spoken Memory Description: Intact Hallucinations: Auditory Delusions: Paranoid Ideation Thought Process: Distracted Thought Content: positive for [place] and positive for Suicidal Ideation Depressive Symptoms: Insomnia and Difficulty Sleeping Judgement: Fair Diagnostics Vital Signs (24Hr): Vital Signs - 24 hr 11/03/21 20:45 11/04/21 06:00 Temperature 98.8 F Pulse Rate 106 H 108 H Respiratory Rate 16 Blood Pressure 107/70 146/81 H Pulse Oximetry 98 BMI result Body Mass Index 25.9 Labs Results: 10/27/21 12:22 10/29/21 07:59 Medications Medications Current Medications Acetaminophen (Acetaminophen 325 Mg Tablet) 650 mg PO Q6H PRN PRN Reason: Headache/Pain Mild Scale (1-3) Al Hydroxide/Mg Hydroxide (Magnesium Hydrox/Alum Hydrox 30 Ml Oral.Susp) 30 ml PO Q6H PRN PRN Reason: Heartburn/Nausea Benztropine Mesylate (Benztropine Mesylate 1 Mg Tablet) 1 mg PO BID [facility] Last Admin: 11/04/21 09:02 Dose: 1 mg Documented by: Chlorpromazine HCl (Chlorpromazine Hcl 100 Mg Tablet) 100 mg PO BEDTIME [facility] Hydroxyzine HCl (Hydroxyzine Hcl 25 Mg Tablet) 25 mg PO BEDTIME PRN PRN Reason: Anxiety Last Admin: 10/30/21 22:17 Dose: 25 mg Documented by: [place] Carbonate ([place] Carbonate 300 Mg Tablet) 300 mg PO BEDTIME [facility] Magnesium Hydroxide (Milk Of Magnesia 30 Ml Oral.Susp) 30 ml PO DAILY PRN PRN Reason: Constipation Metoprolol Tartrate (Metoprolol Tartrate 12.5 Mg Halftab) 12.5 mg PO BID [facility]; Protocol Last Admin: 11/04/21 09:02 Dose: 12.5 mg Documented by: Mirtazapine (Mirtazapine 15 Mg Tablet) 15 mg PO BEDTIME [facility] Last Admin: 11/03/21 21:04 Dose: 15 mg Documented by: Trazodone HCl (Trazodone Hcl 25 Mg Halftab) 25 mg PO BEDTIME [facility] Last Admin: 11/03/21 21:04 Dose: 25 mg Documented by: Allergies Allergies Allergy/AdvReac Type Severity Reaction Status Date / Time No Known Allergies Allergy Verified 10/27/21 12:12 Assessment & Plan Assessment & Plan (1) MDD (major depressive disorder), single episode, severe with psychosis: Status: Acute Code(s): F32.3 - Major depressive disorder, single episode, severe with psychotic features (2) Anxiety: Status: Acute Code(s): F41.9 - Anxiety disorder, unspecified Plan Patient is a 51-year-old female with a history of anxiety who presents for severe depression, suicidality and auditory hallucinations in the face of worsening depression after her this past June 2021. It is unclear what caused exacerbation this past week. Patient has no history of medication trials or therapy She agrees to start Remeron at bedtime for depression and anxiety and Seroquel as a p.r.n. for anxiety 10/30 remains depressed with AH; agrees to increase in meds 11/01 Continue current regime-no changes today. 11/02-Discontinue Risperdal. Olanzapine SL (Zydis) 10 mg bid 11/03- Chlorpromazine 50 mg hs, Discontinue Seroquel, Benztropine 1 mg bid 11/04/21- [place] 300 mg hs, Lorazepam 0.5 mg q 4 h prn, D/C Olanzapine, Increase Chlorpromazine to 100 mg hs Plan: Patient on CV Q 15 minute checks INcrease to Remeron 15 mg q.h.s. Add Seroquel 50 mg Qhs for insomnia, voices Seroquel 25mg prn for anxiety Levaquin 500 mg daily for 7 days for UTI; adjusto writer operator consulted Dr. 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 Informed Consent: further education needed Reason for contiued inpatient stay Substantial Risk for: harm to self, inability to function and rapid decompensation
[2021-11-04] MEDS: chlorproMAZINE HCl 100 MG TABLET PO (21:18)
[2021-11-04] MEDS: traZODone HCL 25 MG HALFTAB PO (21:19)
[2021-11-04] MEDS: Mirtazapine 15 MG TABLET PO (21:19)
[2021-11-04] MEDS: Lithium Carbonate 300 MG TABLET PO (21:19)
[2021-11-05 08:30] VITALS: BP 124/87; PULSE 111; TEMP 36.4
[2021-11-05] MEDS: Metoprolol Tartrate 12.5 MG HALFTAB PO ×2 (08:56→21:35)
[2021-11-05] MEDS: Benztropine Mesylate 1 MG TABLET PO ×3 (08:57→21:36)
--- NOTE | 2021-11-05 15:39 | P.PNPSI_ITS ---
Subjective Subjective Date of Service: 11/05/21 Reason For Visit: Psychosis Interim History: Patient seen and discussed with team. Patient evaluated today and upon interview she reports she has middle of night awakening, energy is low. Mood is so, so. Continues to endorse passive SI but denies plan or intent upon inquiry. Says she has a lot of anxiety, does not like being around people. In the milieu, patient is safe but isolative in behavior. Says she feels safe. Medication Compliance: Yes Side effects from medications: No Attending Groups: Yes Review of Systems Acute medical concerns: No Medical Review of Systems: unchanged Mental Status Exam Mental Status Exam Narrative: Patient Appearance:?Appropriate Patient Orientation:?Person, Place and Situation Level of Consciousness:?Alert Patient Behavior:?Guarded, Talkative, Suspicious and Good Eye Contact Mood Description:?Suspicious Affect Description:?Flat Patient Cognition Impaired:?No Ability to Follow Directions:?Good Speech Pattern:?Spontaneous Speech and Soft-Spoken Memory Description:?Intact Hallucinations:?Auditory Delusions:?Paranoid Ideation Thought Process:?Distracted Thought Content:?positive for [place] and positive for Suicidal Ideation Depressive Symptoms:?Insomnia and Difficulty Sleeping Judgement:?Fair Diagnostics Vital Signs (24Hr): Vital Signs - 24 hr 11/04/21 18:00 11/05/21 08:30 Temperature 97.9 F 97.6 F Pulse Rate 84 111 H Respiratory Rate 18 Blood Pressure 140/84 H 124/87 Pulse Oximetry 98 BMI result Body Mass Index 25.9 Labs Results: 10/27/21 12:22 10/29/21 07:59 Medications Medications Current Medications Acetaminophen (Acetaminophen 325 Mg Tablet) 650 mg PO Q6H PRN PRN Reason: Headache/Pain Mild Scale (1-3) Al Hydroxide/Mg Hydroxide (Magnesium Hydrox/Alum Hydrox 30 Ml Oral.Susp) 30 ml PO Q6H PRN PRN Reason: Heartburn/Nausea Benztropine Mesylate (Benztropine Mesylate 1 Mg Tablet) 1 mg PO BID [facility] Last Admin: 11/05/21 08:57 Dose: 1 mg Documented by: Chlorpromazine HCl (Chlorpromazine Hcl 100 Mg Tablet) 100 mg PO BEDTIME [facility] Last Admin: 11/04/21 21:18 Dose: 100 mg Documented by: Hydroxyzine HCl (Hydroxyzine Hcl 25 Mg Tablet) 25 mg PO BEDTIME PRN PRN Reason: Anxiety Last Admin: 10/30/21 22:17 Dose: 25 mg Documented by: [place] Carbonate ([place] Carbonate 300 Mg Tablet) 300 mg PO BEDTIME [facility] Last Admin: 11/04/21 21:19 Dose: 300 mg Documented by: Lorazepam (Lorazepam 0.5 Mg Tablet) 0.5 mg PO Q4H PRN PRN Reason: anxiety, agitation Magnesium Hydroxide (Milk Of Magnesia 30 Ml Oral.Susp) 30 ml PO DAILY PRN PRN Reason: Constipation Metoprolol Tartrate (Metoprolol Tartrate 12.5 Mg Halftab) 12.5 mg PO BID [facility]; Protocol Last Admin: 11/05/21 08:56 Dose: 12.5 mg Documented by: Mirtazapine (Mirtazapine 15 Mg Tablet) 15 mg PO BEDTIME [facility] Last Admin: 11/04/21 21:19 Dose: 15 mg Documented by: Trazodone HCl (Trazodone Hcl 25 Mg Halftab) 25 mg PO BEDTIME [facility] Last Admin: 11/04/21 21:19 Dose: 25 mg Documented by: Allergies Allergies Allergy/AdvReac Type Severity Reaction Status Date / Time No Known Allergies Allergy Verified 10/27/21 12:12 Assessment & Plan Assessment & Plan (1) MDD (major depressive disorder), single episode, severe with psychosis: Status: Acute Code(s): F32.3 - Major depressive disorder, single episode, severe with psychotic features (2) Anxiety: Status: Acute Code(s): F41.9 - Anxiety disorder, unspecified Plan Patient is a 51-year-old female with a history of anxiety who presents for severe depression, suicidality and auditory hallucinations in the face of wo rsening depression after her this past June 2021. It is unclear what caused exacerbation this past week. Patient has no history of medication trials or therapy She agrees to start Remeron at bedtime for depression and anxiety and Seroquel as a p.r.n. for anxiety 10/30 remains depressed with AH; agrees to increase in meds 11/01 Continue current regime-no changes today. 11/02-Discontinue Risperdal. Olanzapine SL (Zydis) 10 mg bid 11/03- Chlorpromazine 50 mg hs, Discontinue Seroquel, Benztropine 1 mg bid 11/04/21- [place] 300 mg hs, Lorazepam 0.5 mg q 4 h prn, D/C Olanzapine, Increase Chlorpromazine to 100 mg hs 11/05/21- Continue meds unchanged, will obtain lithium level and consider increasing Plan: Patient on CV Q 15 minute checks INcrease to Remeron 15 mg q.h.s. 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 Patient educated on: medication risk/benefits Reason for contiued inpatient stay Substantial Risk for: harm to self and med/psych decompensation
[2021-11-05 18:00] VITALS: BP 136/86; PULSE 115; RESP 18; TEMP 36.9; O2SAT 97
[2021-11-05] MEDS: traZODone HCL 25 MG HALFTAB PO (21:30)
[2021-11-05] MEDS: chlorproMAZINE HCl 100 MG TABLET PO (21:30)
[2021-11-05] MEDS: Mirtazapine 15 MG TABLET PO (21:35)
[2021-11-05] MEDS: Lithium Carbonate 300 MG TABLET PO (21:36)
[2021-11-06 08:30] VITALS: BP 140/85; PULSE 96; TEMP 36.8
[2021-11-06] MEDS: Benztropine Mesylate 1 MG TABLET PO ×2 (08:52→20:55)
[2021-11-06] MEDS: Metoprolol Tartrate 12.5 MG HALFTAB PO ×2 (08:52→20:56)
[2021-11-06 09:10] LABS: Lithium 0.24 mmol/L (0.60-1.20)
[2021-11-06 18:00] VITALS: BP 138/81; PULSE 107; RESP 16; TEMP 36.3
[2021-11-06] MEDS: traZODone HCL 25 MG HALFTAB PO (20:55)
[2021-11-06] MEDS: chlorproMAZINE HCl 100 MG TABLET PO (20:55)
[2021-11-06] MEDS: Mirtazapine 15 MG TABLET PO (20:55)
--- NOTE | 2021-11-06 20:55 | P.PNPSI_ITS ---
Subjective Subjective Date of Service: 11/06/21 Reason For Visit: Psychosis Interim History: Patient seen and discussed with team. Used translator/interpreter. Patient evaluated today and upon interview she reports her mood is regular. Says she is nervous at night. Can fall asleep but wakes up throughout the night. Energy is okay. Says her depression is an 8 out of 10 (10 is the worst), but that yesterday was a 9. Still hears voices, screaming her name, this sometimes bothers her, sometimes doesnt. She denies benefit on medication trials thus far. [place] level 0.24. Has A lot of anxiety. Still endorses passive SI. Reading the bible in bed.? In the milieu, patient is safe but isolative in behavior. Medication Compliance: Yes Side effects from medications: Yes Attending Groups: No Review of Systems Acute medical concerns: No Medical Review of Systems: unchanged Mental Status Exam Mental Status Exam Narrative: Patient Appearance:?Appropriate Patient Orientation:?Person, Place and Situation Level of Consciousness:?Alert Patient Behavior:?Guarded, Talkative, Suspicious and Good Eye Contact Mood Description:?Suspicious Affect Description:?Flat Patient Cognition Impaired:?No Ability to Follow Directions:?Good Speech Pattern:?Spontaneous Speech and Soft-Spoken Memory Description:?Intact Hallucinations:?Auditory Delusions:?Paranoid Ideation Thought Process:?Distracted Thought Content:?positive for [place] and positive for Suicidal Ideation Depressive Symptoms:?Insomnia and Difficulty Sleeping Judgement:?Fair Diagnostics Vital Signs (24Hr): Vital Signs - 24 hr 11/06/21 08:30 11/06/21 18:00 Temperature 98.2 F 97.4 F Pulse Rate 96 107 H Respiratory Rate 16 Blood Pressure 140/85 H 138/81 BMI result Body Mass Index 25.9 Labs Results: 10/27/21 12:22 10/29/21 07:59 Labs: Laboratory Results - last 48 hr 11/06/21 08:00 [place] 0.24 L Medications Medications Current Medications Acetaminophen (Acetaminophen 325 Mg Tablet) 650 mg PO Q6H PRN PRN Reason: Headache/Pain Mild Scale (1-3) Al Hydroxide/Mg Hydroxide (Magnesium Hydrox/Alum Hydrox 30 Ml Oral.Susp) 30 ml PO Q6H PRN PRN Reason: Heartburn/Nausea Benztropine Mesylate (Benztropine Mesylate 1 Mg Tablet) 1 mg PO BID [facility] Last Admin: 11/06/21 20:55 Dose: 1 mg Documented by: Chlorpromazine HCl (Chlorpromazine Hcl 100 Mg Tablet) 100 mg PO BEDTIME [facility] Last Admin: 11/06/21 20:55 Dose: 100 mg Documented by: Hydroxyzine HCl (Hydroxyzine Hcl 25 Mg Tablet) 25 mg PO BEDTIME PRN PRN Reason: Anxiety Last Admin: 10/30/21 22:17 Dose: 25 mg Documented by: [place] Carbonate ([place] Carbonate 300 Mg Tablet) 450 mg PO BEDTIME [facility] Last Admin: 11/06/21 20:56 Dose: 450 mg Documented by: Lorazepam (Lorazepam 0.5 Mg Tablet) 0.5 mg PO Q4H PRN PRN Reason: anxiety, agitation Magnesium Hydroxide (Milk Of Magnesia 30 Ml Oral.Susp) 30 ml PO DAILY PRN PRN Reason: Constipation Metoprolol Tartrate (Metoprolol Tartrate 12.5 Mg Halftab) 12.5 mg PO BID [facility]; Protocol Last Admin: 11/06/21 20:56 Dose: 12.5 mg Documented by: Mirtazapine (Mirtazapine 15 Mg Tablet) 15 mg PO BEDTIME [facility] Last Admin: 11/06/21 20:55 Dose: 15 mg Documented by: Trazodone HCl (Trazodone Hcl 25 Mg Halftab) 25 mg PO BEDTIME [facility] Last Admin: 11/06/21 20:55 Dose: 25 mg Documented by: Allergies Allergies Allergy/AdvReac Type Severity Reaction Status Date / Time No Known Allergies Allergy Verified 10/27/21 12:12 Assessment & Plan Assessment & Plan (1) MDD (major depressive disorder), single episode, severe with psychosis: Status: Acute Code(s): F32.3 - Major depressive disorder, single episode, severe with psychotic features (2) Anxiety: Status: Acute Code(s): F41.9 - Anxiety disorder, unspecified Plan Patient is a 51-year-old female with a history of anxiety who presents for severe depression, suicidality and auditory hallucinations in the face of worsening depression after her this past June 2021. It is unclear what caused exacerbation this past week. Patient has no history of medication trials or therapy She agrees to start Remeron at bedtime for depression and anxiety and Seroquel as a p.r.n. for anxiety 10/30 remains depressed with AH; agrees to increase in meds 11/01 Continue current regime-no changes today. 11/02-Discontinue Risperdal. Olanzapine SL (Zydis) 10 mg bid 11/03- Chlorpromazine 50 mg hs, Discontinue Seroquel, Benztropine 1 mg bid 11/04/21- [place] 300 mg hs, Lorazepam 0.5 mg q 4 h prn, D/C Olanzapine, Increase Chlorpromazine to 100 mg hs 11/05/21- Continue meds unchanged, will obtain lithium level and consider increasing 11/06/21- increase lithium to 450 mg to target sx of poor sleep, depression, SI Plan: Patient on CV Q 15 minute checks INcrease to Remeron 15 mg q.h.s. Add Seroquel 50 mg Qhs for insomnia, voices Seroquel 25mg prn for anxiety Levaquin 500 mg daily for 7 days for UTI; technical report writer consulted Dr. 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 Patient educated on: medication risk/benefits Reason for contiued inpatient stay Substantial Risk for: harm to self and med/psych decompensation
[2021-11-06] MEDS: Lithium Carbonate 300 MG TABLET 450 MG PO (20:56)
[2021-11-07 08:11] VITALS: BP 139/86; PULSE 100; TEMP 36
[2021-11-07] MEDS: Metoprolol Tartrate 12.5 MG HALFTAB PO (09:00)
[2021-11-07] MEDS: Benztropine Mesylate 1 MG TABLET PO (09:01)
[2021-11-07 12:54] LABS: Thyroid Stimulating Hormone 1.82 uIU/mL (0.32-4.0)
[2021-11-07 13:18] LABS: Folate 10.3 ng/mL (> or = 4.0); Vitamin B12 276 pg/mL (200-900)
[2021-11-07 18:00] VITALS: BP 137/94; PULSE 126; RESP 20; TEMP 37; O2SAT 99
--- NOTE | 2021-11-07 18:00 | HO.PSYCHPN ---
Subjective Subjective Date of Service: 11/07/21 Reason For Visit: Psychosis Interim History: Patient seen and discussed with team. Used spanish interpreter services. Patient evaluated today and upon interview she reports she is so, so. Says her sleep is improved, I could sleep. Denies side effects on medication. Still has a lot of anxiety. Says she is stressed, has things that are in my mind. Continues to endorse SI but denies plan or intent. Says reading helps her a lot. Still depressed. Still hearing voices saying her name. AH are bothering her, as she never had this sx prior to current episode, hears them almost all the time. Reviewed lab work, TSH wnl. MRI not done yet. In the milieu, patient is safe in behavior. Medication Compliance: Yes Side effects from medications: No Attending Groups: No Review of Systems Acute medical concerns: No Medical Review of Systems: unchanged Mental Status Exam Mental Status Exam Narrative: Patient Appearance:?Appropriate Patient Orientation:?Person, Place and Situation Level of Consciousness:?Alert Patient Behavior:?Guarded, Talkative, Suspicious and Good Eye Contact Mood Description:?Suspicious Affect Description:?Flat Patient Cognition Impaired:?No Ability to Follow Directions:?Good Speech Pattern:?Spontaneous Speech and Soft-Spoken Memory Description:?Intact Hallucinations:?Auditory Delusions:?Paranoid Ideation Thought Process:?Distracted Thought Content:?positive for [place] and positive for Suicidal Ideation Depressive Symptoms:?Insomnia and Difficulty Sleeping Judgment:?Fair Diagnostics Vital Signs (24Hr): Vital Signs - 24 hr 11/07/21 18:00 11/08/21 08:00 Temperature 98.6 F 97.3 F Pulse Rate 126 H 100 Respiratory Rate 20 18 Blood Pressure 137/94 H 122/76 Pulse Oximetry 99 97 BMI result Body Mass Index 25.9 Labs Results: 10/27/21 12:22 10/29/21 07:59 Labs: Laboratory Results - last 48 hr 11/07/21 11/07/21 11/08/21 12:02 12:02 07:56 Estimat Average Glucose 117 Hemoglobin A1c % 5.7 Triglycerides Cholesterol LDL Cholesterol, Calc HDL Cholesterol Vitamin B12 276 Folate 10.3 TSH 1.82 11/08/21 07:56 Estimat Average Glucose Hemoglobin A1c % Triglycerides 148 Cholesterol 180 LDL Cholesterol, Calc 106 HDL Cholesterol 45 Vitamin B12 Folate TSH Medications Medications Current Medications Acetaminophen (Acetaminophen 325 Mg Tablet) 650 mg PO Q6H PRN PRN Reason: Headache/Pain Mild Scale (1-3) Al Hydroxide/Mg Hydroxide (Magnesium Hydrox/Alum Hydrox 30 Ml Oral.Susp) 30 ml PO Q6H PRN PRN Reason: Heartburn/Nausea Chlorpromazine HCl (Chlorpromazine Hcl 100 Mg Tablet) 100 mg PO BEDTIME [facility] Last Admin: 11/07/21 21:12 Dose: 100 mg Documented by: Hydroxyzine HCl (Hydroxyzine Hcl 25 Mg Tablet) 25 mg PO BEDTIME PRN PRN Reason: Anxiety Last Admin: 10/30/21 22:17 Dose: 25 mg Documented by: [place] Carbonate ([place] Carbonate 300 Mg Tablet) 450 mg PO BEDTIME [facility] Last Admin: 11/07/21 21:13 Dose: 450 mg Documented by: Lorazepam (Lorazepam 0.5 Mg Tablet) 0.5 mg PO Q4H PRN PRN Reason: anxiety, agitation Magnesium Hydroxide (Milk Of Magnesia 30 Ml Oral.Susp) 30 ml PO DAILY PRN PRN Reason: Constipation Metoprolol Tartrate (Metoprolol Tartrate 12.5 Mg Halftab) 12.5 mg PO BID [facility]; Protocol Last Admin: 11/08/21 07:57 Dose: 12.5 mg Documented by: Mirtazapine (Mirtazapine 15 Mg Tablet) 15 mg PO BEDTIME [facility] Last Admin: 11/07/21 21:14 Dose: 15 mg Documented by: Sertraline HCl (Sertraline Hcl 25 Mg Tablet) 25 mg PO DAILY [facility] Last Admin: 11/08/21 07:58 Dose: 25 mg Documented by: Trazodone HCl (Trazodone Hcl 25 Mg Halftab) 25 mg PO BEDTIME [facility] Last Admin: 11/07/21 21:14 Dose: 25 mg Documented by: Allergies Allergies Allergy/AdvReac Type Severity Reaction Status Date / Time No Known Allergies Allergy Verified 10/27/21 12:12 Assessment & Plan Assessment & Plan (1) MDD (major depressive disorder), single episode, severe with psychosis: Status: Acute Code(s): F32.3 - Major depressive disorder, single episode, severe with psychotic features (2) Anxiety: Status: Acute Code(s): F41.9 - Anxiety disorder, unspecified Plan Patient is a 51-year-old female with a history of anxiety who presents for severe depression, suicidality and auditory hallucinations in the face of worsening depression after her this past June 2021. It is unclear what caused exacerbation this past week. Patient has no history of medication trials or therapy She agrees to start Remeron at bedtime for depression and anxiety and Seroquel as a p.r.n. for anxiety 10/30 remains depressed with AH; agrees to increase in meds 11/01 Continue current regime-no changes today. 11/02-Discontinue Risperdal. Olanzapine SL (Zydis) 10 mg bid 11/03- Chlorpromazine 50 mg hs, Discontinue Seroquel, Benztropine 1 mg bid 11/04/21- [place] 300 mg hs, Lorazepam 0.5 mg q 4 h prn, D/C Olanzapine, Increase Chlorpromazine to 100 mg hs 11/05/21- Continue meds unchanged, will obtain lithium level and consider increasing 11/06/21- increase lithium to 450 mg to target sx of poor sleep, depression, SI 11/07/21- Pt denies benefit on medication. Evidence based treatment would support starting an SSRI with an antipsychotic for MDD with psychotic features. Unclear benefit on lithium other than pt is reporting improved sleep. Will start zoloft 25 mg tomorrow morning. Plan: Patient on CV Q 15 minute checks INcrease to Remeron 15 mg q.h.s. Add Seroquel 50 mg Qhs for insomnia, voices Seroquel 25mg prn for anxiety Levaquin 500 mg daily for 7 days for UTI; leader writer consulted Dr. 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 Patient educated on: medication risk/benefits and therapeutic strategies Reason for contiued inpatient stay Substantial Risk for: harm to self and med/psych decompensation
[2021-11-07] MEDS: chlorproMAZINE HCl 100 MG TABLET PO (21:12)
[2021-11-07] MEDS: Lithium Carbonate 300 MG TABLET 450 MG PO (21:13)
[2021-11-07] MEDS: traZODone HCL 25 MG HALFTAB PO (21:14)
[2021-11-07] MEDS: Mirtazapine 15 MG TABLET PO (21:14)
[2021-11-08] MEDS: Metoprolol Tartrate 12.5 MG HALFTAB PO ×2 (07:57→20:28)
[2021-11-08] MEDS: Sertraline HCL 25 MG TABLET PO (07:58)
[2021-11-08 08:00] VITALS: BP 122/76; PULSE 100; RESP 18; TEMP 36.3; O2SAT 97
[2021-11-08 08:21] LABS: Cholesterol 180 mg/dL; HDL Cholesterol 45 mg/dL; LDL Cholesterol Calculated 106 mg/dl; Triglycerides 148 mg/dL
[2021-11-08 08:22] LABS: Estimated Average Glucose 117 mg/dL; Hemoglobin A1c % 5.7 %
--- NOTE | 2021-11-08 17:49 | HO.PSYCHPN ---
Subjective Subjective Date of Service: 11/08/21 Reason For Visit: Psychosis Interim History: Patient seen and discussed with team. Patient evaluated today and upon interview she reports she still feels depressed. Continues to endorse SI but denies plan or intent. Denies SE on zoloft. Says she is still sleeping better. Still hearing voices screaming her name, which is bothering her. In the milieu, patient is safe but isolative in behavior. Medication Compliance: Yes Side effects from medications: No Attending Groups: No Review of Systems Acute medical concerns: No Medical Review of Systems: unchanged Mental Status Exam Mental Status Exam Narrative: Patient Appearance:?Appropriate Patient Orientation:?Person, Place and Situation Level of Consciousness:?Alert Patient Behavior:?Guarded, Talkative, Suspicious and Good Eye Contact Mood Description:?Suspicious Affect Description:?Flat Patient Cognition Impaired:?No Ability to Follow Directions:?Good Speech Pattern:?Spontaneous Speech and Soft-Spoken Memory Description:?Intact Hallucinations:?Auditory Delusions:?Paranoid Ideation Thought Process:?Distracted Thought Content:?positive for [place] and positive for Suicidal Ideation Depressive Symptoms:?Insomnia and Difficulty Sleeping Judgment:?Fair Diagnostics Vital Signs (24Hr): Vital Signs - 24 hr 11/07/21 18:00 11/08/21 08:00 Temperature 98.6 F 97.3 F Pulse Rate 126 H 100 Respiratory Rate 20 18 Blood Pressure 137/94 H 122/76 Pulse Oximetry 99 97 BMI result Body Mass Index 25.9 Labs Results: 10/27/21 12:22 10/29/21 07:59 Labs: Laboratory Results - last 48 hr 11/07/21 11/07/21 11/08/21 12:02 12:02 07:56 Estimat Average Glucose 117 Hemoglobin A1c % 5.7 Triglycerides Cholesterol LDL Cholesterol, Calc HDL Cholesterol Vitamin B12 276 Folate 10.3 TSH 1.82 11/08/21 07:56 Estimat Average Glucose Hemoglobin A1c % Triglycerides 148 Cholesterol 180 LDL Cholesterol, Calc 106 HDL Cholesterol 45 Vitamin B12 Folate TSH Medications Medications Current Medications Acetaminophen (Acetaminophen 325 Mg Tablet) 650 mg PO Q6H PRN PRN Reason: Headache/Pain Mild Scale (1-3) Al Hydroxide/Mg Hydroxide (Magnesium Hydrox/Alum Hydrox 30 Ml Oral.Susp) 30 ml PO Q6H PRN PRN Reason: Heartburn/Nausea Chlorpromazine HCl (Chlorpromazine Hcl 100 Mg Tablet) 100 mg PO BEDTIME [facility] Last Admin: 11/07/21 21:12 Dose: 100 mg Documented by: Hydroxyzine HCl (Hydroxyzine Hcl 25 Mg Tablet) 25 mg PO BEDTIME PRN PRN Reason: Anxiety Last Admin: 10/30/21 22:17 Dose: 25 mg Documented by: [place] Carbonate ([place] Carbonate 300 Mg Tablet) 450 mg PO BEDTIME [facility] Last Admin: 11/07/21 21:13 Dose: 450 mg Documented by: Lorazepam (Lorazepam 0.5 Mg Tablet) 0.5 mg PO Q4H PRN PRN Reason: anxiety, agitation Magnesium Hydroxide (Milk Of Magnesia 30 Ml Oral.Susp) 30 ml PO DAILY PRN PRN Reason: Constipation Metoprolol Tartrate (Metoprolol Tartrate 12.5 Mg Halftab) 12.5 mg PO BID [facility]; Protocol Last Admin: 11/08/21 07:57 Dose: 12.5 mg Documented by: Mirtazapine (Mirtazapine 15 Mg Tablet) 15 mg PO BEDTIME [facility] Last Admin: 11/07/21 21:14 Dose: 15 mg Documented by: Sertraline HCl (Sertraline Hcl 25 Mg Tablet) 25 mg PO DAILY [facility] Last Admin: 11/08/21 07:58 Dose: 25 mg Documented by: Trazodone HCl (Trazodone Hcl 25 Mg Halftab) 25 mg PO BEDTIME [facility] Last Admin: 11/07/21 21:14 Dose: 25 mg Documented by: Allergies Allergies Allergy/AdvReac Type Severity Reaction Status Date / Time No Known Allergies Allergy Verified 10/27/21 12:12 Assessment & Plan Assessment & Plan (1) MDD (major depressive disorder), single episode, severe with psychosis: Status: Acute Code(s): F32.3 - Major depressive disorder, single episode, severe with psychotic features (2) Anxiety: Status: Acute Code(s): F41.9 - Anxiety disorder, unspecified Plan Patient is a 51-year-old female with a history of anxiety who presents for severe depression, suicidality and auditory hallucinations in the face of worsening depression after her this past June 2021. It is unclear what caused exacerbation this past week. Patient has no history of medication trials or therapy She agrees to start Remeron at bedtime for depression and anxiety and Seroquel as a p.r.n. for anxiety 10/30 remains depressed with AH; agrees to increase in meds 11/01 Continue current regime-no changes today. 11/02-Discontinue Risperdal. Olanzapine SL (Zydis) 10 mg bid 11/03- Chlorpromazine 50 mg hs, Discontinue Seroquel, Benztropine 1 mg bid 11/04/21- [place] 300 mg hs, Lorazepam 0.5 mg q 4 h prn, D/C Olanzapine, Increase Chlorpromazine to 100 mg hs 11/05/21- Continue meds unchanged, will obtain lithium level and consider increasing 11/06/21- increase lithium to 450 mg to target sx of poor sleep, depression, SI 11/07/21- Pt denies benefit on medication, frustrated. Evidence based treatment would support starting an SSRI with an antipsychotic for MDD with psychotic features. Unclear benefit on lithium other than pt is reporting improved sleep. Will start zoloft 25 mg tomorrow morning. 11/08/21- Continue trial of lithium, zoloft for severe depression, SI. Will increase thorazine to 200 mg for psychotic sx. Will discontinue remeron, as pt denies benefit and is advocating for fewer meds. Plan: Patient on CV Q 15 minute checks INcrease to Remeron 15 mg q.h.s. 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 Reason for contiued inpatient stay Substantial Risk for: harm to self and med/psych decompensation
[2021-11-08] MEDS: Lithium Carbonate 300 MG TABLET 450 MG PO (20:26)
[2021-11-08] MEDS: chlorproMAZINE HCl 100 MG TABLET 200 MG PO (20:28)
[2021-11-08] MEDS: traZODone HCL 25 MG HALFTAB PO (20:29)
[2021-11-09 06:00] VITALS: BP 100/71; PULSE 92; RESP 16; TEMP 36.6; O2SAT 96
[2021-11-09] MEDS: Sertraline HCL 25 MG TABLET PO (08:45)
[2021-11-09] MEDS: Metoprolol Tartrate 12.5 MG HALFTAB PO ×2 (08:45→20:53)
--- NOTE | 2021-11-09 08:54 | P.PNPSI_ITS ---
Subjective Subjective Reason For Visit: Psychosis Diagnostics Vital Signs (24Hr): Vital Signs - 24 hr 11/09/21 06:00 Temperature 97.9 F Pulse Rate 92 Respiratory Rate 16 Blood Pressure 100/71 Pulse Oximetry 96 BMI result Body Mass Index 25.9 Labs Results: 10/27/21 12:22 10/29/21 07:59 Labs: Laboratory Results - last 48 hr 11/07/21 11/07/21 11/08/21 12:02 12:02 07:56 Estimat Average Glucose 117 Hemoglobin A1c % 5.7 Triglycerides Cholesterol LDL Cholesterol, Calc HDL Cholesterol Vitamin B12 276 Folate 10.3 TSH 1.82 11/08/21 07:56 Estimat Average Glucose Hemoglobin A1c % Triglycerides 148 Cholesterol 180 LDL Cholesterol, Calc 106 HDL Cholesterol 45 Vitamin B12 Folate TSH Medications Medications Current Medications Acetaminophen (Acetaminophen 325 Mg Tablet) 650 mg PO Q6H PRN PRN Reason: Headache/Pain Mild Scale (1-3) Al Hydroxide/Mg Hydroxide (Magnesium Hydrox/Alum Hydrox 30 Ml Oral.Susp) 30 ml PO Q6H PRN PRN Reason: Heartburn/Nausea Chlorpromazine HCl (Chlorpromazine Hcl 100 Mg Tablet) 200 mg PO BEDTIME [facility] Last Admin: 11/08/21 20:28 Dose: 200 mg Documented by: Hydroxyzine HCl (Hydroxyzine Hcl 25 Mg Tablet) 25 mg PO BEDTIME PRN PRN Reason: Anxiety Last Admin: 10/30/21 22:17 Dose: 25 mg Documented by: [place] Carbonate ([place] Carbonate 300 Mg Tablet) 450 mg PO BEDTIME [facility] Last Admin: 11/08/21 20:26 Dose: 450 mg Documented by: Lorazepam (Lorazepam 0.5 Mg Tablet) 0.5 mg PO Q4H PRN PRN Reason: anxiety, agitation Magnesium Hydroxide (Milk Of Magnesia 30 Ml Oral.Susp) 30 ml PO DAILY PRN PRN Reason: Constipation Metoprolol Tartrate (Metoprolol Tartrate 12.5 Mg Halftab) 12.5 mg PO BID [facility]; Protocol Last Admin: 11/09/21 08:45 Dose: 12.5 mg Documented by: Sertraline HCl (Sertraline Hcl 25 Mg Tablet) 25 mg PO DAILY [facility] Last Admin: 11/09/21 08:45 Dose: 25 mg Documented by: Trazodone HCl (Trazodone Hcl 25 Mg Halftab) 25 mg PO BEDTIME [facility] Last Admin: 11/08/21 20:29 Dose: 25 mg Documented by: Allergies Allergies Allergy/AdvReac Type Severity Reaction Status Date / Time No Known Allergies Allergy Verified 10/27/21 12:12 Assessment & Plan Assessment & Plan (1) MDD (major depressive disorder), single episode, severe with psychosis: Status: Acute Code(s): F32.3 - Major depressive disorder, single episode, severe with psychotic features (2) Anxiety: Status: Acute Code(s): F41.9 - Anxiety disorder, unspecified Plan Patient is a 51-year-old female with a history of anxiety who presents for severe depression, suicidality and auditory hallucinations in the face of worsening depression after her this past June 2021. It is unclear what caused exacerbation this past week. Patient has no history of medication trials or therapy She agrees to start Remeron at bedtime for depression and anxiety and Seroquel as a p.r.n. for anxiety 10/30 remains depressed with AH; agrees to increase in meds 11/01 Continue current regime-no changes today. 11/02-Discontinue Risperdal. Olanzapine SL (Zydis) 10 mg bid 11/03- Chlorpromazine 50 mg hs, Discontinue Seroquel, Benztropine 1 mg bid 11/04/21- [place] 300 mg hs, Lorazepam 0.5 mg q 4 h prn, D/C Olanzapine, Increase Chlorpromazine to 100 mg hs 11/05/21- Continue meds unchanged, will obtain lithium level and consider increasing 11/06/21- increase lithium to 450 mg to target sx of poor sleep, depression, SI 11/07/21- Pt denies benefit on medication, frustrated. Evidence based treatment would support starting an SSRI with an antipsychotic for MDD with psychotic features. Unclear benefit on lithium other than pt is reporting improved sleep. Will start zoloft 25 mg tomorrow morning. 11/08/21- Continue trial of lithium, zoloft for severe depression, SI. Will increase thorazine to 200 mg for psychotic sx. Will discontinue remeron, as pt denies benefit and is advocating for fewer meds. Plan: Patient on CV Q 15 minute checks INcrease to Remeron 15 mg q.h.s. 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
[2021-11-09 17:00] VITALS: BP 112/70; PULSE 88; RESP 16; TEMP 36.6; O2SAT 99
[2021-11-09] MEDS: chlorproMAZINE HCl 100 MG TABLET 200 MG PO (20:52)
[2021-11-09] MEDS: Lithium Carbonate 300 MG TABLET 450 MG PO (20:52)
[2021-11-09] MEDS: traZODone HCL 25 MG HALFTAB PO (20:54)
--- NOTE | 2021-11-09 21:41 | HO.PSYCHPN ---
Subjective Subjective Date of Service: 11/09/21 Reason For Visit: Psychosis Interim History: Patient seen case reviewed with staff. Patient withdrawn depressed some decreased hallucinations denies active SI Medication Compliance: Yes Side effects from medications: No Attending Groups: No Review of Systems Acute medical concerns: No Medical Review of Systems: unchanged Mental Status Exam Mental Status Exam Narrative: Patient Appearance:?Appropriate Patient Orientation:?Person, Place and Situation Level of Consciousness:?Alert Patient Behavior:?Guarded, Talkative, Suspicious and Good Eye Contact Mood Description:?Suspicious Affect Description:?Flat Patient Cognition Impaired:?No Ability to Follow Directions:?Good Speech Pattern:?Spontaneous Speech and Soft-Spoken Memory Description:?Intact Hallucinations:?Auditory Delusions:?Paranoid Ideation Thought Process:?Distracted Thought Content:?positive for [place] and positive for Suicidal Ideation Depressive Symptoms:?Insomnia and Difficulty Sleeping Judgment:?Fair Diagnostics Vital Signs (24Hr): Vital Signs - 24 hr 11/09/21 06:00 11/09/21 17:00 Temperature 97.9 F 97.8 F Pulse Rate 92 88 Respiratory Rate 16 16 Blood Pressure 100/71 112/70 Pulse Oximetry 96 99 BMI result Body Mass Index 25.9 Labs Results: 10/27/21 12:22 10/29/21 07:59 Labs: Laboratory Results - last 48 hr 11/08/21 11/08/21 07:56 07:56 Estimat Average Glucose 117 Hemoglobin A1c % 5.7 Triglycerides 148 Cholesterol 180 LDL Cholesterol, Calc 106 HDL Cholesterol 45 Medications Medications Current Medications Acetaminophen (Acetaminophen 325 Mg Tablet) 650 mg PO Q6H PRN PRN Reason: Headache/Pain Mild Scale (1-3) Al Hydroxide/Mg Hydroxide (Magnesium Hydrox/Alum Hydrox 30 Ml Oral.Susp) 30 ml PO Q6H PRN PRN Reason: Heartburn/Nausea Chlorpromazine HCl (Chlorpromazine Hcl 100 Mg Tablet) 200 mg PO BEDTIME [facility] Last Admin: 11/09/21 20:52 Dose: 100 mg Documented by: Hydroxyzine HCl (Hydroxyzine Hcl 25 Mg Tablet) 25 mg PO BEDTIME PRN PRN Reason: Anxiety Last Admin: 10/30/21 22:17 Dose: 25 mg Documented by: [place] Carbonate ([place] Carbonate 300 Mg Tablet) 450 mg PO BEDTIME [facility] Last Admin: 11/09/21 20:52 Dose: 450 mg Documented by: Magnesium Hydroxide (Milk Of Magnesia 30 Ml Oral.Susp) 30 ml PO DAILY PRN PRN Reason: Constipation Metoprolol Tartrate (Metoprolol Tartrate 12.5 Mg Halftab) 12.5 mg PO BID [facility]; Protocol Last Admin: 11/09/21 20:53 Dose: 12.5 mg Documented by: Sertraline HCl (Sertraline Hcl 25 Mg Tablet) 25 mg PO DAILY [facility] Last Admin: 11/09/21 08:45 Dose: 25 mg Documented by: Trazodone HCl (Trazodone Hcl 25 Mg Halftab) 25 mg PO BEDTIME [facility] Last Admin: 11/09/21 20:54 Dose: 25 mg Documented by: Allergies Allergies Allergy/AdvReac Type Severity Reaction Status Date / Time No Known Allergies Allergy Verified 10/27/21 12:12 Assessment & Plan Assessment & Plan (1) MDD (major depressive disorder), single episode, severe with psychosis: Status: Acute Code(s): F32.3 - Major depressive disorder, single episode, severe with psychotic features (2) Anxiety: Status: Acute Code(s): F41.9 - Anxiety disorder, unspecified Plan Continue sertraline lithium Thorazine I spent minutes with the patient and/or on the patient floor today, greater than?50% of which was spent counseling/coordinating care. Reason for contiued inpatient stay Substantial Risk for: harm to self, inability to function and rapid decompensation
[2021-11-10 08:30] VITALS: BP 106/69; PULSE 99; TEMP 36.4
[2021-11-10] MEDS: Metoprolol Tartrate 12.5 MG HALFTAB PO ×2 (08:43→21:12)
[2021-11-10] MEDS: Sertraline HCL 25 MG TABLET PO (08:43)
[2021-11-10 17:25] VITALS: BP 102/66; PULSE 90; RESP 18; TEMP 36.6; O2SAT 96
[2021-11-10] MEDS: chlorproMAZINE HCl 100 MG TABLET 200 MG PO (21:10)
[2021-11-10] MEDS: Lithium Carbonate 300 MG TABLET 450 MG PO (21:11)
[2021-11-10] MEDS: traZODone HCL 25 MG HALFTAB PO (21:12)
[2021-11-11 08:45] VITALS: BP 111/56; PULSE 94; TEMP 36.3
[2021-11-11] MEDS: Sertraline HCL 25 MG TABLET PO (09:18)
[2021-11-11] MEDS: Metoprolol Tartrate 12.5 MG HALFTAB PO (09:18)
--- NOTE | 2021-11-11 16:20 | P.PNPSI_ITS ---
Subjective Subjective Date of Service: 11/10/21 Reason For Visit: Psychosis Interim History: pt depressed with residual paranoia Mental Status Exam Mental Status Exam Narrative: Patient Appearance:?Appropriate Patient Orientation:?Person, Place and Situation Level of Consciousness:?Alert Patient Behavior:?Guarded, Talkative, Suspicious and Good Eye Contact Mood Description:?Suspicious Affect Description:?Flat Patient Cognition Impaired:?No Ability to Follow Directions:?Good Speech Pattern:?Spontaneous Speech and Soft-Spoken Memory Description:?Intact Hallucinations:?Auditory Delusions:?Paranoid Ideation Thought Process:?Distracted Thought Content:?positive for [place] and positive for Suicidal Ideation Depressive Symptoms:?Insomnia and Difficulty Sleeping Judgment:?Fair Diagnostics Vital Signs (24Hr): Vital Signs - 24 hr 11/10/21 17:25 11/11/21 08:45 Temperature 97.8 F 97.4 F Pulse Rate 90 94 Respiratory Rate 18 Blood Pressure 102/66 111/56 L Pulse Oximetry 96 BMI result Body Mass Index 25.9 Labs Results: 10/27/21 12:22 10/29/21 07:59 Medications Medications Current Medications Acetaminophen (Acetaminophen 325 Mg Tablet) 650 mg PO Q6H PRN PRN Reason: Headache/Pain Mild Scale (1-3) Al Hydroxide/Mg Hydroxide (Magnesium Hydrox/Alum Hydrox 30 Ml Oral.Susp) 30 ml PO Q6H PRN PRN Reason: Heartburn/Nausea Chlorpromazine HCl (Chlorpromazine Hcl 100 Mg Tablet) 200 mg PO BEDTIME [facility] Last Admin: 11/10/21 21:10 Dose: 200 mg Documented by: Hydroxyzine HCl (Hydroxyzine Hcl 25 Mg Tablet) 25 mg PO BEDTIME PRN PRN Reason: Anxiety Last Admin: 10/30/21 22:17 Dose: 25 mg Documented by: [place] Carbonate ([place] Carbonate 300 Mg Tablet) 450 mg PO BEDTIME [facility] Last Admin: 11/10/21 21:11 Dose: 450 mg Documented by: Magnesium Hydroxide (Milk Of Magnesia 30 Ml Oral.Susp) 30 ml PO DAILY PRN PRN Reason: Constipation Metoprolol Tartrate (Metoprolol Tartrate 12.5 Mg Halftab) 12.5 mg PO BID [facility]; Protocol Last Admin: 11/11/21 09:18 Dose: 12.5 mg Documented by: Sertraline HCl (Sertraline Hcl 25 Mg Tablet) 25 mg PO DAILY [facility] Last Admin: 11/11/21 09:18 Dose: 25 mg Documented by: Trazodone HCl (Trazodone Hcl 25 Mg Halftab) 25 mg PO BEDTIME [facility] Last Admin: 11/10/21 21:12 Dose: 25 mg Documented by: Allergies Allergies Allergy/AdvReac Type Severity Reaction Status Date / Time No Known Allergies Allergy Verified 10/27/21 12:12 Assessment & Plan Assessment & Plan (1) MDD (major depressive disorder), single episode, severe with psychosis: Status: Acute Code(s): F32.3 - Major depressive disorder, single episode, severe with psychotic features (2) Anxiety: Status: Acute Code(s): F41.9 - Anxiety disorder, unspecified Plan Continue sertraline lithium Thorazine denies active self harm I spent minutes with the patient and/or on the patient floor today, greater than?50% of which was spent counseling/coordinating care. Reason for contiued inpatient stay Substantial Risk for: harm to self and rapid decompensation
--- NOTE | 2021-11-11 17:18 | P.PNPSI_ITS ---
Subjective Subjective Date of Service: 11/11/21 Reason For Visit: Psychosis Interim History: Patient seen and discussed with team. 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 Patient evaluated today and upon interview Well. Says she is sleeping well now. Energy is better. Mood is better. Still hearing AH, says they are telling me stuff, screaming her name. Anxiety is better. Coping skills include coloring, painting, reading the bible. Complains of racing thoughts, thinking about stressors including her family, dog, job. Continues to endorse passive SI but says this is also getting better. In the milieu, patient is safe and appropriate in behavior. Says she feels safe on the unit. Medication Compliance: Yes Side effects from medications: No Attending Groups: No Review of Systems Acute medical concerns: No Medical Review of Systems: unchanged Mental Status Exam Mental Status Exam Narrative: Patient Appearance:?Appropriate Patient Orientation:?Person, Place and Situation Level of Consciousness:?Alert Patient Behavior:?Guarded, Talkative, Suspicious and Good Eye Contact Mood Description:?Suspicious Affect Description:?Flat Patient Cognition Impaired:?No Ability to Follow Directions:?Good Speech Pattern:?Spontaneous Speech and Soft-Spoken Memory Description:?Intact Hallucinations:?Auditory Delusions:?Paranoid Ideation Thought Process:?Distracted Thought Content:?positive for [place] and positive for Suicidal Ideation Depressive Symptoms:?hopelessness Judgment:?Fair Diagnostics Vital Signs (24Hr): Vital Signs - 24 hr 11/10/21 17:25 11/11/21 08:45 Temperature 97.8 F 97.4 F Pulse Rate 90 94 Respiratory Rate 18 Blood Pressure 102/66 111/56 L Pulse Oximetry 96 BMI result Body Mass Index 25.9 Labs Results: 10/27/21 12:22 10/29/21 07:59 Medications Medications Current Medications Acetaminophen (Acetaminophen 325 Mg Tablet) 650 mg PO Q6H PRN PRN Reason: Headache/Pain Mild Scale (1-3) Al Hydroxide/Mg Hydroxide (Magnesium Hydrox/Alum Hydrox 30 Ml Oral.Susp) 30 ml PO Q6H PRN PRN Reason: Heartburn/Nausea Chlorpromazine HCl (Chlorpromazine Hcl 100 Mg Tablet) 200 mg PO BEDTIME [facility] Last Admin: 11/10/21 21:10 Dose: 200 mg Documented by: Hydroxyzine HCl (Hydroxyzine Hcl 25 Mg Tablet) 25 mg PO BEDTIME PRN PRN Reason: Anxiety Last Admin: 10/30/21 22:17 Dose: 25 mg Documented by: [place] Carbonate ([place] Carbonate 300 Mg Tablet) 450 mg PO BEDTIME [facility] Last Admin: 11/10/21 21:11 Dose: 450 mg Documented by: Magnesium Hydroxide (Milk Of Magnesia 30 Ml Oral.Susp) 30 ml PO DAILY PRN PRN Reason: Constipation Metoprolol Tartrate (Metoprolol Tartrate 12.5 Mg Halftab) 12.5 mg PO BID [facility]; Protocol Last Admin: 11/11/21 09:18 Dose: 12.5 mg Documented by: Sertraline HCl (Sertraline Hcl 25 Mg Tablet) 25 mg PO DAILY [facility] Last Admin: 11/11/21 09:18 Dose: 25 mg Documented by: Trazodone HCl (Trazodone Hcl 25 Mg Halftab) 25 mg PO BEDTIME [facility] Last Admin: 11/10/21 21:12 Dose: 25 mg Documented by: Allergies Allergies Allergy/AdvReac Type Severity Reaction Status Date / Time No Known Allergies Allergy Verified 10/27/21 12:12 Assessment & Plan Assessment & Plan (1) MDD (major depressive disorder), single episode, severe with psychosis: Status: Acute Code(s): F32.3 - Major depressive disorder, single episode, severe with psychotic features (2) Anxiety: Status: Acute Code(s): F41.9 - Anxiety disorder, unspecified Plan Patient is a 51-year-old female with a history of anxiety who presents for severe depression, suicidality and auditory hallucinations in the face of worsening depression after her this past June 2021. It is unclear what caused exacerbation this past week.? Patient has no history of medication trials or therapy She agrees to start Remeron at bedtime for depression and anxiety and Seroquel as a p.r.n. for anxiety 10/30 remains depressed with AH; agrees to increase in meds 11/01 Continue current regime-no changes today. 11/02-Discontinue Risperdal. Olanzapine SL (Zydis) 10 mg bid 11/03- Chlorpromazine 50 mg hs, Discontinue Seroquel, Benztropine 1 mg bid 11/04/21- [place] 300 mg hs, Lorazepam 0.5 mg q 4 h prn, D/C Olanzapine, Increase Chlorpromazine to 100 mg hs 11/05/21- Continue meds unchanged, will obtain lithium level and consider increasing 11/06/21- increase lithium to 450 mg to target sx of poor sleep, depression, SI 11/07/21- Pt denies benefit on medication, frustrated. Evidence based treatment would support starting an SSRI with an antipsychotic for MDD with psychotic feat ures. Unclear benefit on lithium other than pt is reporting improved sleep. Will start zoloft 25 mg tomorrow morning. 11/08/21- Continue trial of lithium, zoloft for severe depression, SI. Will increase thorazine to 200 mg for psychotic sx. Will discontinue remeron, as pt denies benefit and is advocating for fewer meds. 11/11/21: Continue lithium, zoloft, trazodone for sx of depression, SI, anxiety. Will discontinue thorazine, as pt continues to report AH. Will re-start seroquel at 200 mg for sx of psychotic depression and titrate up for benefit, as she did not have adequate trial on seroquel. Plan: Patient on CV Q 15 minute checks INcrease to Remeron 15 mg q.h.s. 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 Reason for contiued inpatient stay Substantial Risk for: harm to self, rapid decompensation and med/psych decompensation
[2021-11-11 18:00] VITALS: BP 116/57; PULSE 80; RESP 14; TEMP 36.4
[2021-11-11] MEDS: traZODone HCL 25 MG HALFTAB PO (21:21)
[2021-11-11] MEDS: QUEtiapine Fumarate 200 MG TABLET PO (21:22)
[2021-11-11] MEDS: Lithium Carbonate 300 MG TABLET 450 MG PO ×2 (21:22→21:32)
[2021-11-12] MEDS: Metoprolol Tartrate 12.5 MG HALFTAB PO ×2 (08:35→21:58)
[2021-11-12] MEDS: Sertraline HCL 25 MG TABLET PO ×2 (08:36→10:57)
[2021-11-12 08:39] VITALS: BP 109/62; PULSE 101; RESP 18; TEMP 36.6; O2SAT 97
--- NOTE | 2021-11-12 10:24 | HO.PSYCHPN ---
Subjective Subjective Date of Service: 11/12/21 Reason For Visit: Psychosis Interim History: Patient says she's feeling better; says depression much better and SI is now infrequent, ephemeral and she's able to ignore it. Pt says AH remain but now are only in the morning and off in an hour and only say her name; she does not find them too upsetting. Patient says she is close to being back to he normal self. She says medicaitons are working and denies side-effects; she does not want meds changed. Pt says she feels ready to discharge home if her family is ok with it. She continues to sleep better. Mental Status Exam Mental Status Exam Narrative: Patient Appearance:?Appropriate Patient Orientation:?Person, Place and Situation Level of Consciousness:?Alert Patient Behavior:?Good Eye Contact Mood Description:? better Affect Description:?congruent Patient Cognition Impaired:?No Ability to Follow Directions:?Good Speech Pattern:?Spontaneous Speech and Soft-Spoken Memory Description:?Intact Hallucinations:?Auditory Delusions:?none Thought Process:?goal oriented Thought Content:?No SI/HI Judgment:?Fair Diagnostics Vital Signs (24Hr): Vital Signs - 24 hr 11/11/21 18:00 11/12/21 08:39 Temperature 97.6 F 97.9 F Pulse Rate 80 101 H Respiratory Rate 14 18 Blood Pressure 116/57 L 109/62 Pulse Oximetry 97 BMI result Body Mass Index 25.9 Labs Results: 10/27/21 12:22 10/29/21 07:59 Medications Medications Current Medications Acetaminophen (Acetaminophen 325 Mg Tablet) 650 mg PO Q6H PRN PRN Reason: Headache/Pain Mild Scale (1-3) Al Hydroxide/Mg Hydroxide (Magnesium Hydrox/Alum Hydrox 30 Ml Oral.Susp) 30 ml PO Q6H PRN PRN Reason: Heartburn/Nausea Hydroxyzine HCl (Hydroxyzine Hcl 25 Mg Tablet) 25 mg PO BEDTIME PRN PRN Reason: Anxiety Last Admin: 10/30/21 22:17 Dose: 25 mg Documented by: [place] Carbonate ([place] Carbonate 300 Mg Tablet) 450 mg PO BEDTIME BASIL Last Admin: 11/11/21 21:32 Dose: 450 mg Documented by: Magnesium Hydroxide (Milk Of Magnesia 30 Ml Oral.Susp) 30 ml PO DAILY PRN PRN Reason: Constipation Metoprolol Tartrate (Metoprolol Tartrate 12.5 Mg Halftab) 12.5 mg PO BID [facility]; Protocol Last Admin: 11/12/21 08:35 Dose: 12.5 mg Documented by: Quetiapine Fumarate (Quetiapine Fumarate 200 Mg Tablet) 200 mg PO BEDTIME [facility] Last Admin: 11/11/21 21:22 Dose: 200 mg Documented by: Sertraline HCl (Sertraline Hcl 25 Mg Tablet) 25 mg PO DAILY [facility] Last Admin: 11/12/21 08:36 Dose: 25 mg Documented by: Trazodone HCl (Trazodone Hcl 25 Mg Halftab) 25 mg PO BEDTIME [facility] Last Admin: 11/11/21 21:21 Dose: 25 mg Documented by: Allergies Allergies Allergy/AdvReac Type Severity Reaction Status Date / Time No Known Allergies Allergy Verified 10/27/21 12:12 Assessment & Plan Assessment & Plan (1) MDD (major depressive disorder), single episode, severe with psychosis: Status: Acute Code(s): F32.3 - Major depressive disorder, single episode, severe with psychotic features (2) Anxiety: Status: Acute Code(s): F41.9 - Anxiety disorder, unspecified Plan Continue sertraline lithium Thorazine denies active self harm 11/12 mood improved; no SI; AH minimal and tolerable; pt feels ready for discharge but wants to coordinate w/ family I spent minutes with the patient and/or on the patient floor today, greater than?50% of which was spent counseling/coordinating care. Patient educated on: diagnosis Informed Consent: understands Reason for contiued inpatient stay Substantial Risk for: stable for discharge
[2021-11-12] MEDS: Milk of Magnesia 30 ML ORAL.SUSP PO (19:47)
[2021-11-12 21:50] VITALS: BP 123/57; PULSE 79; TEMP 36.4; O2SAT 98
[2021-11-12] MEDS: QUEtiapine Fumarate 200 MG TABLET PO (21:58)
[2021-11-12] MEDS: traZODone HCL 25 MG HALFTAB PO (21:59)
[2021-11-13] MEDS: Metoprolol Tartrate 12.5 MG HALFTAB PO ×2 (08:11→21:25)
[2021-11-13] MEDS: Sertraline HCL 50 MG TABLET PO (08:11)
[2021-11-13 08:21] VITALS: BP 101/68; PULSE 92; RESP 18; TEMP 36.6; O2SAT 98
--- NOTE | 2021-11-13 10:22 | P.PNPSI_ITS ---
Subjective Subjective Date of Service: 11/13/21 Reason For Visit: Psychosis Interim History: Patient reports that she is good and continues to feel ready for discharge; no SI; AH tolerable. Patient with noticeably bright affect and interacting appropriately with peers in the milieu. Mental Status Exam Mental Status Exam Narrative: Patient Appearance:?Appropriate Patient Orientation:?Person, Place and Situation Level of Consciousness:?Alert Patient Behavior:?Good Eye Contact Mood Description:? good Affect Description:?congruent Patient Cognition Impaired:?No Ability to Follow Directions:?Good Speech Pattern:?Spontaneous Speech and Soft-Spoken but less so Memory Description:?Intact Hallucinations: intermittent AH but not bothersome Delusions:?none Thought Process:?goal oriented Thought Content:?No SI/HI Judgment:?Fair Diagnostics Vital Signs (24Hr): Vital Signs - 24 hr 11/12/21 21:50 11/13/21 08:21 Temperature 97.5 F 97.9 F Pulse Rate 79 92 Respiratory Rate 18 Blood Pressure 123/57 L 101/68 Pulse Oximetry 98 98 BMI result Body Mass Index 25.9 Labs Results: 10/27/21 12:22 10/29/21 07:59 Medications Medications Current Medications Acetaminophen (Acetaminophen 325 Mg Tablet) 650 mg PO Q6H PRN PRN Reason: Headache/Pain Mild Scale (1-3) Al Hydroxide/Mg Hydroxide (Magnesium Hydrox/Alum Hydrox 30 Ml Oral.Susp) 30 ml PO Q6H PRN PRN Reason: Heartburn/Nausea Hydroxyzine HCl (Hydroxyzine Hcl 25 Mg Tablet) 25 mg PO BEDTIME PRN PRN Reason: Anxiety Last Admin: 10/30/21 22:17 Dose: 25 mg Documented by: [place] Carbonate ([place] Carbonate 300 Mg Tablet) 450 mg PO BEDTIME BASIL Last Admin: 11/11/21 21:32 Dose: 450 mg Documented by: Magnesium Hydroxide (Milk Of Magnesia 30 Ml Oral.Susp) 30 ml PO DAILY PRN PRN Reason: Constipation Last Admin: 11/12/21 19:47 Dose: 30 ml Documented by: Metoprolol Tartrate (Metoprolol Tartrate 12.5 Mg Halftab) 12.5 mg PO BID [facility]; Protocol Last Admin: 11/13/21 08:11 Dose: 12.5 mg Documented by: Quetiapine Fumarate (Quetiapine Fumarate 200 Mg Tablet) 200 mg PO BEDTIME [facility] Last Admin: 11/12/21 21:58 Dose: 200 mg Documented by: Sertraline HCl (Sertraline Hcl 50 Mg Tablet) 50 mg PO DAILY [facility] Last Admin: 11/13/21 08:11 Dose: 50 mg Documented by: Trazodone HCl (Trazodone Hcl 25 Mg Halftab) 25 mg PO BEDTIME [facility] Last Admin: 11/12/21 21:59 Dose: 25 mg Documented by: Allergies Allergies Allergy/AdvReac Type Severity Reaction Status Date / Time No Known Allergies Allergy Verified 10/27/21 12:12 Assessment & Plan Assessment & Plan (1) MDD (major depressive disorder), single episode, severe with psychosis: Status: Acute Code(s): F32.3 - Major depressive disorder, single episode, severe with psychotic features (2) Anxiety: Status: Acute Code(s): F41.9 - Anxiety disorder, unspecified Plan Patient is a 51-year-old female with a history of anxiety who presents for severe depression, suicidality and auditory hallucinations in the face of worsening depression after her this past June 2021. It is unclear what caused exacerbation this past week.? Patient has no history of medication trials or therapy She agrees to start Remeron at bedtime for depression and anxiety and Seroquel as a p.r.n. for anxiety 10/30 remains depressed with AH; agrees to increase in meds 11/01 Continue current regime-no changes today. 11/02-Discontinue Risperdal. Olanzapine SL (Zydis) 10 mg bid 11/03- Chlorpromazine 50 mg hs, Discontinue Seroquel, Benztropine 1 mg bid 11/04/21- [place] 300 mg hs, Lorazepam 0.5 mg q 4 h prn, D/C Olanzapine, Increase Chlorpromazine to 100 mg hs 11/05/21- Continue meds unchanged, will obtain lithium level and consider increasing 11/06/21- increase lithium to 450 mg to target sx of poor sleep, depression, SI 11/07/21- Pt denies benefit on medication, frustrated. Evidence based treatment would support starting an SSRI with an antipsychotic for MDD with psychotic features. Unclear benefit on lithium other than pt is reporting improved sleep. Will start zoloft 25 mg tomorrow morning. 11/08/21- Continue trial of lithium, zoloft for severe depression, SI. Will increase thorazine to 200 mg for psychotic sx. Will discontinue remeron, as pt denies benefit and is advocating for fewer meds. 11/11/21: Continue lithium, zoloft, trazodone for sx of depression, SI, anxiety. Will discontinue thorazine, as pt continues to report AH. Will re-start seroquel at 200 mg for sx of psychotic depression and titrate up for benefit, as she did not have adequate trial on seroquel. 11/13 patient remains an good mood with depression having abated; no SI; AH minimal and patient feels she getting or. She feels ready for discharge and is looking for to going home. She says she is tolerating medications. Patient is not in imminent risk for harm to self or others and request for discharge honored. Plan: Patient on CV Q 15 minute checks INcrease to Remeron 15 mg q.h.s. Add Seroquel 50 mg Qhs for insomnia, voices Seroquel 25mg prn for anxiety Levaquin 500 mg daily for 7 days for UTI; brief writer consulted Dr. 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 Reason for contiued inpatient stay Substantial Risk for: stable for discharge
[2021-11-13 17:16] VITALS: BP 120/75; PULSE 95; RESP 18; TEMP 36.9; O2SAT 98
[2021-11-13] MEDS: Lithium Carbonate 300 MG TABLET 450 MG PO (21:24)
[2021-11-13] MEDS: traZODone HCL 25 MG HALFTAB PO (21:25)
[2021-11-13] MEDS: QUEtiapine Fumarate 200 MG TABLET PO (21:26)
[2021-11-14 09:15] VITALS: BP 120/61; PULSE 100; RESP 18; TEMP 37; O2SAT 99
[2021-11-14] MEDS: Metoprolol Tartrate 12.5 MG HALFTAB PO (09:15)
[2021-11-14] MEDS: Sertraline HCL 50 MG TABLET PO (09:15)
[2021-11-14 09:36] VITALS: BMI 27.1
--- NOTE | 2021-11-14 11:17 | P.DS_ITS ---
DS: Providers Provider Date of Service: 11/14/21 Date of admission: 10/28/21 18:10 Date of discharge: 11/14/21 Primary care physician: [facility] Attending physician on admission: Shiva Mars Consults: 10/27/21 13:26 BHN [Consult to Crisis] Stat Reason for consultation: paranoia 10/28/21 18:09 Consult to Hospitalist Routine Consulting Provider: Hospitalist Reason For Exam: Admitted to psychiatry Attending physician on discharge: Shiva Mars DS: Diagnosis Discharge Diagnosis (1) MDD (major depressive disorder), single episode, severe with psychosis: Status: Acute (2) Anxiety: Status: Acute DS: Medications Discharge Medications Home Medications: Previous Rx's Medication Instructions Recorded lithium carbonate 450 mg 450 mg PO BEDTIME 30 Days #30 tab 11/14/21 tablet,extended release metoprolol tartrate 25 mg tablet 12.5 mg PO BID 30 Days #30 tab 11/14/21 quetiapine 200 mg tablet 200 mg PO BEDTIME 30 Days #30 tab 11/14/21 sertraline 50 mg tablet 50 mg PO DAILY 30 Days #30 tab 11/14/21 trazodone 50 mg tablet 25 mg PO DAILY PRN 30 Days #15 tab 11/14/21 Mental Status Exam Mental Status Exam Narrative: Patient Appearance:?Appropriate Patient Orientation:?Person, Place and Situation Level of Consciousness:?Alert Patient Behavior:?Good Eye Contact Mood Description:? good Affect Description:?congruent Patient Cognition Impaired:?No Ability to Follow Directions:?Good Speech Pattern:?Spontaneous Speech and Soft-Spoken but less so Memory Description:?Intact Hallucinations: intermittent AH but not bothersome Delusions:?none Thought Process:?goal oriented Thought Content:?No SI/HI Judgment:?Fair Data Data Completed and Pending Completed studies during hospitalization [Text1]: 11/07/21 11/07/21 11/08/21 12:02 12:02 07:56 Estimat Average Glucose 117 Hemoglobin A1c % 5.7 Triglycerides Cholesterol LDL Cholesterol, Calc HDL Cholesterol Vitamin B12 276 Folate 10.3 TSH 1.82 11/08/21 07:56 Estimat Average Glucose Hemoglobin A1c % Triglycerides 148 Cholesterol 180 LDL Cholesterol, Calc 106 HDL Cholesterol 45 Vitamin B12 Folate TSH 10/29/21 Unknown Urine clean catch - Urine tavera top Urine Culture - Final DS: Summary Hospital Course Hospital Course: Patient is a 51-year-old female with a history of anxiety who presents for severe depression, suicidality and auditory hallucinations in the face of worsening depression after her this past June 2021. On admission, patient was depressed and c/o AH and insomnia; she spoke softly and made little eye contact. SI soon resolved but she remained depressed. She had hx of anxiety but not depression or med trials. She agreed to start medications. She was at first started on Remeron and seroquel prn. Remeron was not effective and eventually dc'd and Zoloft started in it's place. Early on in admission, pt's psychotic symptoms worsened and she went through several antipsychotic trials including Risperdal, Zyprexa and then Thorazine, none of which was effective. However, once pt was started on [place] and scheduled on Seroquel patient mood improved, she was able to sleep and AH subsided. Patient continued to improve and depression continued to tiny and anxiety lowered. Her AH significantly were significantly reduced and only present in the morning, only hearing her name and able to be ignored. Pt's affect noticeably brightened and she began to interact with peers on the unit and relaxing in dayroom milue with others demonstrating appropriate behaviors and impulse control. Pt felt ready for discharge. Her mood remained better and SI fully resolved; she was optimistic about staying stable. Pt has supportive family who were included in tx discussions and felt that patient was back to her normal self and ready for discharge; pt felt confident to return home. Pt was not in imminent risk for harm to self or others and request for discharge honored. Time spent discussing smoking cessation with patient: 3 to 10 minutes Status at Discharge Functional status at discharge: independent ambulation Overall status at discharge: patient is back to baseline Time Spent with Patient Time attestation: Total time spent providing and/or coordinating discharge services: Time spent: Less than 30 minutes Discharge Plan Discharge Patient Disposition: Home, Self-Care Discharge Diagnosis: MDD, single episode, severe, with psychotic features, in partial remission Referrals: Therapy: Sorin Cabello [Other] - 11/18/21 11:00 am (Esta xiao es en oficina) Psiquiatr?a: Nu Mclaughlin [Other] - 12/12/21 3:40 pm (Esta es cristal xiao virtual de Teles[place]. Se enviar? un enlace a taylor correo electr?parker para conectarse a la xiao) Psiquiatr?a: Nu Mclaughlin [Other] - 01/07/22 9:00 am (Esta es cristal xiao virtual de [place]. Se enviar? un enlace a taylor correo electr?parker para conectarse a la xiao ) Juana Cottrell [Nurse Practitioner] - 11/21/21 10:30 am (IN OFFICE) Discharge Medications: New quetiapine 200 mg Tablet 200 mg PO BEDTIME 30 Days Qty: 30 0RF sertraline 50 mg Tablet 50 mg PO DAILY 30 Days Qty: 30 0RF trazodone 50 mg tablet 25 mg PO DAILY PRN (Reason: insomnia) 30 Days Qty: 15 0RF lithium carbonate 450 mg tablet extended release 450 mg PO BEDTIME 30 Days Qty: 30 0RF Changed metoprolol tartrate 25 mg tablet 12.5 mg PO BID 30 Days Qty: 30 0RF Discharge Orders: Discharge Order (Routine); Ordered 11/14/21 Ordered By: Shiva Mars Diet: regular diet Activity on Discharge: As tolerated Stand Alone Forms: Patient Portal Discharge page, Community Support Care Plan Goals: Maintain mood and safe behaviors Take medications as prescribed Practice coping skills Continue with outpatient providers and reach out to them as needed Health Concerns: Mood stability and behaviors Plan of Treatment: Follow up with your PCP, psychiatric provider and other outpatient providers regarding above concerns Take medications as prescribed Assessment: Risk assessment at time of discharge:? Patient was interviewed prior to d ischarge and found to be fully oriented and without any SI or HI. Patient has insight and demonstrates good judgment in terms of wanting to pursue treatment. Patient is not in imminent risk of harm to self or others and has a safety plan that includes presenting to the closest ER or calling 911 if feeling unsafe.? Patient has been observed closely by nursing and unit staff throughout admission; patient has not engaged in any behaviors that suggest dangerousness to self or others and has demonstrated appropriate behaviors and impulse control
== END 2021-11-14 15:07 | disposition home or self-care (01) | DRG 751 ==
LOC: HO.ED 17:11 → HO.PM5 10-28 18:17
PROVIDERS: Clinical Nurse Specialist Psychiatric/Mental Health, Adult; Nurse Practitioner Family; Registered Nurse; Admitting Provider Psychiatry & Neurology Psychiatry; Emergency Provider Emergency Medicine; Visit Provider Psychiatry & Neurology Psychiatry
DX: F32.3 Major depressive disorder, single episode, severe with psychotic features (principal); R45.851 Suicidal ideations; F41.9 Anxiety disorder, unspecified; Z20.822 Contact with and (suspected) exposure to COVID-19; Z79.899 Other long term (current) drug therapy
CPT/HCPCS: 36415; 80053; 80061; 80076; 80178; 80307; 81001; 81025; 82248; 82607; 82746; 83036; 84443; 85025; 87086; 87635; 99285

== ENCOUNTER 2021-12-29 17:48 | Inpatient (IN) | payer OTHER, SELFPAY ==
--- NOTE | ~2021-12-29 | CT_ITS ---
EXAMINATION: CT HEAD WITHOUT CONTRAST CLINICAL INFORMATION: Acute mental status change COMPARISON: None TECHNIQUE: Contiguous axial imaging was performed from the skull base to vertex without intravenous administration of contrast. This CT examination was performed using dose optimization techniques as appropriate, variously including the following: *Automated exposure control *Adjustment of mA and/or kV according to patient size (this includes techniques or standardized protocols for targeted exams where dose is matched to indication/reason for exam; i.e. extremities or head) *Use of iterative reconstruction technique DLP: 719 mGy-cm FINDINGS: There is no evidence of acute intracranial hemorrhage or territorial infarction. No abnormal mass effect or midline shift is seen. Tariq to white matter differentiation is well preserved. No extra-axial fluid collections are identified. The ventricles are normal in size. There is no abnormal attenuation within the brain parenchyma. The osseous structures and soft tissues are normal. The mastoid air cells and visualized portions of the paranasal sinuses are well aerated. CT/CT head/brain wo con IMPRESSION: Unremarkable exam.
[2021-12-29 18:04] VITALS: BP 140/80; PULSE 125; O2SAT 99; BMI 26.2
--- NOTE | 2021-12-29 18:27 | ED_ITS ---
HPI - Psych General Chief Complaint: Psychiatric Symptoms Stated Complaint: Crisis with PD on board Time Seen by Provider: 12/29/21 18:26 Source: patient Mode of arrival: EMS Limitations: language barrier (Angolan-speaking medical appliance maker utilized) History of Present Illness HPI Narrative: Patient presents emergency department via EMS with a Section 12 from PD. Patient reports some increasing anxiety and depression for the past couple days. This morning she was feeling more anxious while taking her medications. She states that she has been taking all her medications as prescribed. Family called PD as they felt unsafe, patient had a knife, and they were concerned that she was going to harm them. Patient does endorse SI, but is vague about any plan. She denies HI, but she does admit that she was gesturing the knife towards family members. Family is concerned that she may not be taking her medications, of the bottles are nearly full. Patient denies any additional complaints at this time. Related Data Home Medications Medication Instructions Recorded Confirmed quetiapine 200 mg tablet 400 mg PO BEDTIME 12/29/21 12/29/21 trazodone 50 mg tablet 25 mg PO BEDTIME PRN insomnia 12/29/21 12/29/21 Previous Rx's Medication Instructions Recorded lithium carbonate 450 mg 450 mg PO BEDTIME 30 days #30 tabs 11/14/21 tablet,extended release metoprolol tartrate 25 mg tablet 12.5 mg PO BID 30 days #30 tabs 11/14/21 sertraline 50 mg tablet 50 mg PO DAILY 30 days #30 tabs 11/14/21 Allergies Allergy/AdvReac Type Severity Reaction Status Date / Time No Known Allergies Allergy Verified 10/27/21 12:12 Review of Systems Review of Systems: Constitutional : No Fever, No Chills ENT/Mouth : No Ear Pain, No Nasal Congestion, No sore throat Eyes: No Eye Pain, No Swelling, No Redness Cardiovascular : No Chest Pain, No SOB Respiratory : No Cough, No Sputum, No Dyspnea Gastrointestinal : No Nausea, No Vomiting, No Diarrhea, No Hematochezia, No Melena Genitourinary : No Dysuria, No Urinary Frequency, No Hematuria Musculoskeletal : No Myalgias Skin : No Skin Lesions, No rash Neuro : No Weakness, No Numbness, No Paresthesias, No Dizziness, No Headache Psych : positive Anxiety, positive Depression, positive SI/HI Heme/Lymph: No Lymphadenopathy Endocrine : No Polyuria, No Polydipsia Yes all other systems are reviewed and are negative [facility] Past Medical History Attestation statement: The following information was validated with the patient. Source: old records reviewed Medical History Anxiety Social History Social History Household Members: Family Household Members Other:: mother and sister Housing: House Do you presently have visiting nurse or other home services: No Patient Tobacco Use Status: Never used Tobacco e-Cigarette/Vaping Use: Never Used Advance Directives: No service: No Sexual orientation: Straight/Heterosexual Physical Exam Vital Signs: Vital Signs: Last Vital Signs Temp 98.2 F 12/29/21 18:45 Pulse 118 H 12/29/21 20:41 Resp 14 12/29/21 20:41 BP 137/88 12/29/21 20:41 Pulse Ox 96 12/29/21 20:41 O2 Del Method 12/29/21 20:41 BMI result Body Mass Index 29.7 Vital signs have been reviewed as normal and appeared to be correct. Blood pressure normal.? Heart rate normal.? Respiration rate normal. Temperature normal.? Oxygen saturation normal. Appearance: Alert.?Oriented to person, place and time. No acute distress.?Normal affect. Eyes: Pupils equal, round and reactive to light.? ENT: Pharynx normal.?? Neck: Normal inspection.? Neck supple.?? CVS: Heart sounds normal. Normal heart rate and rhythm.? Pulses normal.?? Respiratory: No respiratory distress.? Lung sounds clear to auscultation bilaterally?? Abdomen: Soft and non-tender.?? Skin: Skin warm and dry.? Normal skin color.? Extremities: No lower extremity edema.? Neuro: Moves all extremities spontaneously. Sensation intact bilaterally. CN II- XII intact. No focal neuro deficits. Ambulates with normal steady gait. Course Course Course Narrative: Patient is a 51-year-old female with a past medical history of anxiety and depression presenting to the emergency department on a Section 12 for evaluation of worsening anxiety and depression with suicidal ideations, and possible homicidal ideations. She is very vague about providing history. Obtain basic labs including CBC and CMP, urinalysis and EKG for medical clearance. Drug of abuse screen and ethanol level to be obtained. Discussed plan of care with patient, will require evaluation by crisis team, Section [address] Patient is currently, cooperative. Reevaluation(s) Reevaluation #1: Serum labs are overall unremarkable. EKG reveals sinus tachycardia, no acute ischemic findings. Alcohol level negative. [place] <0.1, patient likely not taking medication as prescribed. Drug of abuse screen remains pending at this time. Patient is cooperative at this time. Will be placed in physician observation, she will require further time for evaluation by crisis. Patient verbalizes understanding. Time: 19:50 [facility] - Psych Medical Records Attestation: I reviewed the patient's medical records. Lab Data Attestation: I reviewed the patient's lab results. Result diagrams: 12/29/21 18:56 12/29/21 18:56 Labs: Lab Results 12/29/21 12/29/21 12/29/21 Range/Units 18:56 18:56 18:56 WBC 12.1 H (4.8-10.8) X10*3/uL RBC 4.19 L (4.20-5.50) X10*6/uL Hgb 12.3 (12.0-16.0) g/dl Hct 38.8 (37.0-47.0) % MCV 92.6 (80.0-98.0) fL MCH 29.4 (27.0-33.0) pg MCHC 31.7 (31.0-35.0) g/dl RDW 14.1 (11.0-16.0) % Plt Count 316 (160-400) X10*3/uL MPV 9.3 L (9.4-12.3) fL Immature Gran % (Auto) 0.2 (0.0-0.4) % Neut % (Auto) 69.8 (45-73) % Lymph % (Auto) 22.7 (20-40) % Alfalfa % (Auto) 6.1 (2-11) % Eos % (Auto) 0.8 (0-4) % Baso % (Auto) 0.4 (0-2) % Lymph # (Auto) 2.8 (1.2-4.9) X10*3/uL [place] # (Auto) 0.7 (0.1-1.2) X10*3/uL Eos # (Auto) 0.1 (0.0-0.4) X10*3/uL Baso # (Auto) 0.1 (0.0-0.2) X10*3/uL Abs Immat Gran (auto) 0.03 (0.00-0.03) X10*3/uL Absolute Neuts (auto) 8.4 H (2.0-8.3) x10*3/uL Absolute Nucleated RBC 0.000 (0.0-0.012) X10*3/uL Nucleated RBC % (auto) 0.0 (0.0-0.2) /100WBC Sodium 142 (135-145) mmol/L Potassium 3.7 (3.3-5.1) mmol/L Chloride 105 (96-108) mmol/L Carbon Dioxide 29 (22-29) mmol/L Anion Gap 12 (12-20) BUN 22 H D (9-16) mg/dL Creatinine 1.14 (0.5-1.4) mg/dL Estim Creat Clear Calc 49.6 Estimated GFR 51 Random Glucose 159 H (60-115) mg/dL Calcium 9.4 D (8.4-10.2) mg/dL Total Bilirubin 0.3 (0.0-1.0) mg/dL AST 15 (5-31) U/L ALT 17 (0-31) U/L Alkaline Phosphatase 109 (39-117) U/L Total Protein 6.7 (6.5-8.0) g/dL Albumin 4.1 (3.5-5.0) g/dL [place] < 0.10 L (0.60-1.20) mmol/L Ethyl Alcohol mg/dL COVID-19 (IRVIN) (Negative) COVID-19 Clin Com 12/29/21 12/29/21 Range/Units 18:56 18:56 WBC (4.8-10.8) X10*3/uL RBC (4.20-5.50) X10*6/uL Hgb (12.0-16.0) g/dl Hct (37.0-47.0) % MCV (80.0-98.0) fL MCH (27.0-33.0) pg MCHC (31.0-35.0) g/dl RDW (11.0-16.0) % Plt Count (160-400) X10*3/uL MPV (9.4-12.3) fL Immature Gran % (Auto) (0.0-0.4) % Neut % (Auto) (45-73) % Lymph % (Auto) (20-40) % [place]alfa % (Auto) (2-11) % Eos % (Auto) (0-4) % Baso % (Auto) (0-2) % Lymph # (Auto) (1.2-4.9) X10*3/uL [place]alf[place] # (Auto) (0.1-1.2) X10*3/uL Eos # (Auto) (0.0-0.4) X10*3/uL Baso # (Auto) (0.0-0.2) X10*3/uL Abs Immat Gran (auto) (0.00-0.03) X10*3/uL Absolute Neuts (auto) (2.0-8.3) x10*3/uL Absolute Nucleated RBC (0.0-0.012) X10*3/uL Nucleated RBC % (auto) (0.0-0.2) /100WBC Sodium (135-145) mmol/L Potassium (3.3-5.1) mmol/L Chloride (96-108) mmol/L Carbon Dioxide (22-29) mmol/L Anion Gap (12-20) BUN (9-16) mg/dL Creatinine (0.5-1.4) mg/dL Estim Creat Clear Calc Estimated GFR Random Glucose (60-115) mg/dL Calcium (8.4-10.2) mg/dL Total Bilirubin (0.0-1.0) mg/dL AST (5-31) U/L ALT (0-31) U/L Alkaline Phosphatase (39-117) U/L Total Protein (6.5-8.0) g/dL Albumin (3.5-5.0) g/dL [place] (0.60-1.20) mmol/L Ethyl Alcohol < 10 mg/dL COVID-19 (IRVIN) Negative (Negative) COVID-19 Clin Com See Note ECG Data Attestation: I personally reviewed and interpreted this ECG as follows: ECG interpretation date: 12/29/21 Prior ECG tracings: not available for review Interpretation: Rate: 104 Rhythm:? Sinus tachycardia [place]:? Normal Normal P waves.? Normal JAMARCUS.?? Normal QRS complex.?? ST T wave :??No ST elevation, no ST depression, no T-wave inversion qTC: 410 prior studies:? None available for review The study has been interpreted contemporaneously by me. Discharge Plan Discharge Clinical Impression: Anxiety, Suicidal ideation Patient Disposition: Still a Patient Prescriptions: No Action sertraline 50 mg Tablet 50 mg PO DAILY 30 Days Qty: 30 0RF metoprolol tartrate 25 mg tablet 12.5 mg PO BID 30 Days Qty: 30 0RF lithium carbonate 450 mg tablet extended release 450 mg PO BEDTIME 30 Days Qty: 30 0RF trazodone 50 mg tablet 25 mg PO BEDTIME PRN (Reason: insomnia) quetiapine 200 mg tablet 400 mg PO BEDTIME
--- NOTE | 2021-12-29 18:28 | ECG_ITS ---
Test Reason : AMS Blood Pressure : / mmHG Vent. Rate : 104 BPM Atrial Rate : 104 BPM P-R Int : 132 ms QRS Dur : 070 ms QT Int : 316 ms P-R-T Axes : 041 059 030 degrees QTc Int : 415 ms Sinus tachycardia Otherwise normal ECG No previous ECGs available Referred By: Pooja Wing Electronically Signed By:Srinivas Stevens
[2021-12-29 18:30] VITALS: BP 144/82; PULSE 102; RESP 18; TEMP 37.3; O2SAT 98
[2021-12-29 18:45] VITALS: BP 144/82; PULSE 102; RESP 18; TEMP 36.8; O2SAT 95
[2021-12-29 19:00] LABS: MANUAL DIFF FLAG NO
[2021-12-29 19:03] LABS: Basophils Absolute Auto 0.1 X10*3/uL (0.0-0.2); Basophils Percent Auto 0.4 % (0-2); Eosinophils Absolute Auto 0.1 X10*3/uL (0.0-0.4); Eosinophils Percent Auto 0.8 % (0-4); Hematocrit 38.8 % (37.0-47.0); Hemoglobin 12.3 g/dl (12.0-16.0); Imm Gran Abs Auto 0.03 X10*3/uL (0.00-0.03); Imm Gran Pct Auto 0.2 % (0.0-0.4); Lymphocytes Absolute Auto 2.8 X10*3/uL (1.2-4.9); Lymphocytes Percent Auto 22.7 % (20-40); Mean Corpuscular HGB Conc 31.7 g/dl (31.0-35.0); Mean Corpuscular Hemoglobin 29.4 pg (27.0-33.0); Mean Corpuscular Volume 92.6 fL (80.0-98.0); Mean Platelet Volume 9.3 fL (9.4-12.3); Monocytes Absolute Auto 0.7 X10*3/uL (0.1-1.2); Monocytes Percent Auto 6.1 % (2-11); Neutrophils Absolute Auto 8.4 x10*3/uL (2.0-8.3); Neutrophils Percent Auto 69.8 % (45-73); Platelet Count 316 X10*3/uL (160-400); Red Blood Count 4.19 X10*6/uL (4.20-5.50); Red Cell Distribution Width 14.1 % (11.0-16.0); White Blood Count 12.1 X10*3/uL (4.8-10.8)
[2021-12-29 19:16] LABS: Ethanol < 10 mg/dL
[2021-12-29 19:17] VITALS: BMI 29.7
[2021-12-29 19:20] LABS: Alanine Aminotransferase 17 U/L (0-31); Albumin Level 4.1 g/dL (3.5-5.0); Alkaline Phosphatase 109 U/L (39-117); Anion Gap 12 (12-20); Aspartate Amino Transferase 15 U/L (5-31); Bilirubin Total 0.3 mg/dL (0.0-1.0); Blood Urea Nitrogen 22 mg/dL (9-16); Calcium 9.4 mg/dL (8.4-10.2); Carbon Dioxide 29 mmol/L (22-29); Chloride 105 mmol/L (96-108); Creatinine Clr Calc Pharmacy 49.6; Estimated Glomerular Filt Rate 51; Glucose Random 159 mg/dL (60-115); Potassium 3.7 mmol/L (3.3-5.1); Sodium 142 mmol/L (135-145); Total Protein 6.7 g/dL (6.5-8.0)
[2021-12-29 19:23] LABS: COVID-19 Test Negative (Negative); IDNOW Serial# 16C4AD1C
--- NOTE | 2021-12-29 20:30 | PHA.MEDREC ---
Pharmacy Consult ? Medication Reconciliation Pharmacy has completed the medication reconciliation. Patient reports taking her medications, she also reports taking quetiapine 400 mg at bedtime, although rx from previous admission was 200 mg at bedtime. Patient hasnt been filling medications and per report it is unlikely she is taking her medications as directed.
[2021-12-29 20:41] VITALS: BP 137/88; PULSE 118; RESP 14; O2SAT 96
[2021-12-29 22:07] VITALS: BP 158/91; PULSE 110; RESP 18; TEMP 37.1; O2SAT 96
[2021-12-29 22:20] LABS: Appearance Urine HAZY; Color Urine YELLOW; Glucose Urine UA NEG (NEG); Leukocyte Esterase Urine 1+ (NEG); Nitrite Urine NEG (NEG); Specific Gravity - Urine 1.025 (1.005-1.025); UACC Culture Trigger YES; Urine Blood TRACE (NEG); Urine Ketones 5 MG/DL (NEG); Urine Protein NEG (NEG-TRACE)
[2021-12-29] MEDS: Metoprolol Tartrate 12.5 MG HALFTAB PO (22:20)
[2021-12-29] MEDS: QUEtiapine Fumarate 200 MG TABLET PO (22:20)
[2021-12-29 22:35] LABS: Bacteria Urine 2+ /LPF; Calcium Oxalate Crystals Urine 1+ /LPF; Mucus Urine 4+ /LPF; Squamous Epithelial Cell Urine 4+ /LPF
[2021-12-29 22:39] LABS: Amphetamine Screen Urine Not Detected (Not Detect); Barbiturates, Urine Not Detected (Not Detect); Benzodiazepines Screen Urine Not Detected (Not Detect); Cannabinoid Screen Urine Not Detected (Not Detect); Cocaine Screen Urine Not Detected (Not Detect); Fentanyl, urine Not Detected (Not Detect); Opiate Screen Urine Not Detected (Not Detect); Phencyclidine Screen Urine Not Detected (Not Detect)
[2021-12-30] MEDS: traZODone HCL 25 MG HALFTAB PO (00:02)
[2021-12-30 00:07] VITALS: RESP 16
[2021-12-30 01:49] VITALS: RESP 16
[2021-12-30 04:00] VITALS: RESP 16
[2021-12-30 05:56] VITALS: RESP 16
[2021-12-30 08:32] VITALS: BP 142/87; PULSE 45; RESP 18; TEMP 37.4; O2SAT 98
[2021-12-30] MEDS: Sertraline HCL 50 MG TABLET PO (09:07)
--- NOTE | 2021-12-30 12:11 | P.CNPS_ITS ---
History of Present Illness Date of Service: 12/30/21 Chief Complaint: Crisis with PD on board Reason for Consult: AH, SI/HI Requesting physician: Rosemarie Sandra Discussed with referring provider: Yes Sources of Information: patient interviewed, chart reviewed and crisis/core team assessment reviewed HPI Narrative: Mrs. Wyman is a 51 year-old woman with hx of MDD with psychosis, hospitalized psychiatrically for the first time in her life back in 10/2021 with what appears to be first time AH, depressed mood and SI. She was discharged back in 10/2021 with prescription of lithium, seroquel and sertraline. Pt was brought on section 12 (unclear who called for wellness check). Utox is negative. Pt reports she has been hearing voices- reports multiple voices telling her to hurt herself and others. She endorses feeling distressed, overwhelmed by voices. She denies currently any plan or intent to hurt herself but also reports at time thinking that she may be better off. Pt reports feeling anxious, restless. She reports poor sleep. She has not been able to follow up with psychiatric appointments scheduled on her behave since she was discharged from . She re ports she does not have transportation but also she does admit to calling them to rescheduled. She reports poor appetite. Per discharge summary- pt was tried on different antipsychotics including ri speridone, olanzapine and thorazine during admission but did not respond. She appeared to respond to combination of sertraline, lithium and seroquel. Past Psychiatric History: Inpatient: 10/2021. OP: [facility] but did not follow up with them Suicide attempts- during last psychotic episode tried to cut wrist. Past med trials: risperidone (not very effective), olanzapine (not very effective), thorazine (not veru effective) Medical Evaluation Reviewed: Yes Review of Systems Constitutional: Reports poor appetite PMFSH Medical History Anxiety Family History: Denies Social History: , now since this past June 2021; currently living with her mother; no kids Substance History: none Trauma History: Denies Diagnostics Vital Signs (24Hr): Vital Signs - 24 hr 12/29/21 18:30 12/29/21 18:45 12/29/21 20:41 Temperature 99.2 F 98.2 F Pulse Rate 102 H 102 H 118 H Respiratory Rate 18 18 14 Blood Pressure 144/82 H 144/82 H 137/88 Pulse Oximetry 98 95 96 Oxygen Delivery Method Room Air Room Air Room Air 12/29/21 22:07 12/30/21 00:07 12/30/21 01:49 Temperature 98.7 F Pulse Rate 110 H Respiratory Rate 18 16 16 Blood Pressure 158/91 H Pulse Oximetry 96 Oxygen Delivery Method Room Air 12/30/21 04:00 12/30/21 05:56 12/30/21 08:32 Temperature 99.3 F Pulse Rate 45 L Respiratory Rate 16 16 18 Blood Pressure 142/87 H Pulse Oximetry 98 Oxygen Delivery Method Room Air BMI result Body Mass Index 29.7 Labs Results: 12/29/21 18:56 12/29/21 18:56 Labs: Laboratory Results - last 48 hr 12/29/21 12/29/21 12/29/21 18:56 18:56 18:56 WBC 12.1 H RBC 4.19 L Hgb 12.3 Hct 38.8 MCV 92.6 MCH 29.4 MCHC 31.7 RDW 14.1 Plt Count 316 MPV 9.3 L Immature Gran % (Auto) 0.2 Neut % (Auto) 69.8 Lymph % (Auto) 22.7 [place] % (Auto) 6.1 Eos % (Auto) 0.8 Baso % (Auto) 0.4 Lymph # (Auto) 2.8 [place] # (Auto) 0.7 Eos # (Auto) 0.1 Baso # (Auto) 0.1 Abs Immat Gran (auto) 0.03 Absolute Neuts (auto) 8.4 H Absolute Nucleated RBC 0.000 Nucleated RBC % (auto) 0.0 Sodium 142 Potassium 3.7 Chloride 105 Carbon Dioxide 29 Anion Gap 12 BUN 22 H D Creatinine 1.14 Estim Creat Clear Calc 49.6 Estimated GFR 51 Random Glucose 159 H Calcium 9.4 D Total Bilirubin 0.3 AST 15 ALT 17 Alkaline Phosphatase 109 Total Protein 6.7 Albumin 4.1 Urine Color Urine Appearance Urine pH Ur Specific [place] Urine Protein Urine Glucose (UA) Urine Ketones Urine Blood Urine Nitrite Ur Leukocyte Esterase Urine RBC Urine WBC Ur Squamous Epith Cells Calcium Oxalate Crystal Urine Bacteria Urine Mucus Urine Opiates Screen Urine Fentanyl Screen Ur Barbiturates Screen Ur Phencyclidine Scrn Ur Amphetamines Screen U Benzodiazepines Scrn [place] < 0.10 L Urine Cocaine Screen U Marijuana (THC) Screen Ethyl Alcohol COVID-19 (IRVIN) COVID-19 Clin Com 12/29/21 12/29/21 12/29/21 18:56 18:56 22:13 WBC RBC Hgb Hct MCV MCH MCHC RDW Plt Count MPV Immature Gran % (Auto) Neut % (Auto) Lymph % (Auto) [place] % (Auto) Eos % (Auto) Baso % (Auto) Lymph # (Auto) [place] # (Auto) Eos # (Auto) Baso # (Auto) Abs Immat Gran (auto) Absolute Neuts (auto) Absolute Nucleated RBC Nucleated RBC % (auto) Sodium Potassium Chloride Carbon Dioxide Anion Gap BUN Creatinine Estim Creat Clear Calc Estimated GFR Random Glucose Calcium Total Bilirubin AST ALT Alkaline Phosphatase Total Protein Albumin Urine Color YELLOW Urine Appearance HAZY Urine pH 6.0 Ur Specific [place] 1.025 Urine Protein NEG Urine Glucose (UA) NEG Urine Ketones 5 Urine Blood TRACE Urine Nitrite NEG Ur Leukocyte Esterase 1+ H Urine RBC 1-4 Urine WBC 5-9 H Ur Squamous Epith Cells 4+ Calcium Oxalate Crystal 1+ Urine Bacteria 2+ Urine Mucus 4+ Urine Opiates Screen Urine Fentanyl Screen Ur Barbiturates Screen Ur Phencyclidine Scrn Ur Amphetamines Screen U Benzodiazepines Scrn [place] Urine Cocaine Screen U Marijuana (THC) Screen Ethyl Alcohol < 10 COVID-19 (IRVIN) Negative COVID-19 Clin Com See Note 12/29/21 22:13 WBC RBC Hgb Hct MCV MCH MCHC RDW Plt Count MPV Immature Gran % (Auto) Neut % (Auto) Lymph % (Auto) [place] % (Auto) Eos % (Auto) Baso % (Auto) Lymph # (Auto) [place] # (Auto) Eos # (Auto) Baso # (Auto) Abs Immat Gran (auto) Absolute Neuts (auto) Absolute Nucleated RBC Nucleated RBC % (auto) Sodium Potassium Chloride Carbon Dioxide Anion Gap BUN Creatinine Estim Creat Clear Calc Estimated GFR Random Glucose Calcium Total Bilirubin AST ALT Alkaline Phosphatase Total Protein Albumin Urine Color Urine Appearance Urine pH Ur Specific [place] Urine Protein Urine Glucose (UA) Urine Ketones Urine Blood Urine Nitrite Ur Leukocyte Esterase Urine RBC Urine WBC Ur Squamous Epith Cells Calcium Oxalate Crystal Urine Bacteria Urine Mucus Urine Opiates Screen Not Detected Urine Fentanyl Screen Not Detected Ur Barbiturates Screen Not Detected Ur Phencyclidine Scrn Not Detected Ur Amphetamines Screen Not Detected U Benzodiazepines Scrn Not Detected [place] Urine Cocaine Screen Not Detected U Marijuana (THC) Screen Not Detected Ethyl Alcohol COVID-19 (IRVIN) COVID-19 Clin Com Mental Status Exam Mental Status Exam Narrative: Appearance: wearing hospital gown, poor hygiene in NAD Behavior:withdrawn psychomotor:some mild retardation, staring at floor Speech:mostly clear, does mumble at times, some delayed response at times, minimally spontaneous Thought process:mostly linear Thought content:hearing voices, feeling distressed, overwhelmed by voices. Mood: depressed Affect: blunted SI:passive HI:none VH/AH:CAH telling her to harm self and others, including the family dog. Delusions:no overt delusional content Insight/judgment:poor x 2. Memory/cog: alert, oriented x 3. not formally tested. Medications Medications Current Medications Lisinopril (Lisinopril 10 Mg Tablet) 30 mg PO DAILY [facility]; Protocol Lorazepam (Lorazepam 1 Mg Tablet) 1 mg PO BID BASIL Metoprolol Tartrate (Metoprolol Tartrate 12.5 Mg Halftab) 12.5 mg PO BID [facility]; Protocol Last Admin: 12/30/21 08:53 Dose: Not Given Pharmacy Consult (Consult Rx Perform Med Rec) 1 each MISCELLANE ONCE PRN PRN Reason: Consult order Quetiapine Fumarate (Quetiapine Fumarate 200 Mg Tablet) 200 mg PO BEDTIME [facility] Last Admin: 12/29/21 22:20 Dose: 200 mg Sertraline HCl (Sertraline Hcl 50 Mg Tablet) 50 mg PO DAILY [facility] Last Admin: 12/30/21 09:07 Dose: 50 mg Trazodone HCl (Trazodone Hcl 25 Mg Halftab) 25 mg PO BEDTIME PRN PRN Reason: insomnia Last Admin: 12/30/21 00:02 Dose: 25 mg Allergies Allergies Allergy/AdvReac Type Severity Reaction Status Date / Time No Known Allergies Allergy Verified 10/27/21 12:12 Assessment & Plan Assessment & Plan (1) MDD (major depressive disorder), single episode, severe with psychosis: Status: Acute Code(s): F32.3 - Major depressive disorder, single episode, severe with psychotic features Plan Mrs. Wyman is a 51 year-old woman with hx of MDD with psychosis, admitted to on 10/2021 for similar presentation, new onset AH, depressed mood since 2020. Utox negative. She was brought via EMS on section 12 (unclear who called crisis) expressing suicidal ideation in context of feeling overwhelmed by command auditory hallucinations. Per discharge summary from Dr. Shiva Mars- pt was trialed on 3 antipsychotics that were not effective including risperidone, olanzapine, thorazine. She apparently responded to combination of sertraline, lithium and seroquel. Pt with some psychomotor retardation, internally preoccupied. After discussing risks, benefits and alternative treatment options, she does agree to restart lithium, seroquel and sertraline. PLAN 1. Pt needs inpatient psychiatric admission for safety, containment and further stabilization. Given previous impulsive self-harm attempts while psychotic (tried to cut wrist while on unit with razor, asking to shave under arm) and apparently (denying intent to self harm), will consider section 12 if pt not voluntary. 2. Start [place] 300mg po BID, continue seroquel 300mg po qhs, sertraline 50mg po daily. 3. given report of fairly new onset of psychosis in past 6-7 months- will do head CT to r/o medical causes, she has not had one. I spent minutes with the patient and/or on the patient floor today, greater than?50% of which was spent counseling/coordinating care.
[2021-12-30] MEDS: LORazepam 1 MG TABLET PO ×2 (12:28→21:34)
[2021-12-30] MEDS: lisinopriL 10 MG TABLET 30 MG PO (12:28)
[2021-12-30 16:22] LABS: TSH reflex Free T4 1.32 uIU/mL (0.32-4.0)
--- NOTE | 2021-12-30 16:34 | PC.NURSE ---
RN from [facility] came down and reviewed conditional voluntary admission paperwork w pt via medical transcriber. pt transported to .
[2021-12-30 17:10] VITALS: BP 127/81; PULSE 107; TEMP 36.6
[2021-12-30 17:52] LABS: Erythrocyte Sedimentation Rate 14 MM/HR (0-20)
--- NOTE | 2021-12-30 18:04 | HO.PSYADMNOT ---
HPI Date of Service: 12/30/21 Chief Complaint: Depression with Psychotic Features Sources of Information: patient interviewed, chart reviewed and crisis/core team assessment reviewed HPI Subjective Notes: [place] Warning and Conditional Voluntary Healthcare Proxy: No Guardianship: No Medical Problems Affecting Mental Status: No Narrative: Latoya is a 51 y.o. female who carries a dx of MDD with psychotic features. She presented to [facility] on 12/29/21 on a Section 12a after her mother called 911 due to pt holding a knife to her wrist (while holding her dog) and threatening to kill herself, family felt unsafe, gesturing knife towards family members. She reported worsening anxiety, panic attacks, command AH telling her to kill herself, others, or her dog. Precipitating factors include the of her in 06/2021 due to kidney disease. Recent admission to [facility] on -11/14/21, prior to that she had no psychiatric history. She was discharged on seroquel 200 mg QHS, lithium 600 mg BID, and zoloft 50 mg, however has been non-adherent and only taking her BP medication, says she is ?suspicious? of medication. Family reports her medication bottles are nearly full. She did not follow up with OP psych referrals, says this was due to transportation issues. Pt reports poor sleep and appetite. Li level <0.1 on 12/29/21. Utox negative, no alcohol abuse. I evaluated the pt this evening with lang interpreter services and upon interview she reports she feels ?more or less the same.? She reports after discharge from on 11/14/21 ?I was totally fine but all of a sudden I started to feel the same,? felt ?a lot of depression.? Says she has racing thoughts, poor sleep. She endorses AH, hears voices saying family members names, telling her to harm herself. She denies any incidents of self harm but endorses SI without plan. She admits to grabbing a knife impulsively in a gesture to harm herself but says ?I changed my mind.? Says she is ?always vigilant.? Admits to only taking her medications ?as needed? and says this is how she thought she was supposed to take them. Pt is open to restarting medications from previous discharge. Past Psychiatric History: -OP: [facility] but did not follow up with them -Hx of suicide attempts, has tried to cut her wrist -Past med trials: risperidone (not very effective), olanzapine (not very effective), thorazine (not very effective) -Per discharge summary from in 10/2021: pt was tried on different antipsychotics including risperidone, olanzapine and thorazine during admission but did not respond. She appeared to respond to a combination of sertraline, lithium and seroquel. 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 Trauma History: Denies Diagnostics Vital Signs (24Hr): Vital Signs - 24 hr 12/29/21 18:30 12/29/21 18:45 12/29/21 20:41 Temperature 99.2 F 98.2 F Pulse Rate 102 H 102 H 118 H Respiratory Rate 18 18 14 Blood Pressure 144/82 H 144/82 H 137/88 Pulse Oximetry 98 95 96 Oxygen Delivery Method Room Air Room Air Room Air 12/29/21 22:07 12/30/21 00:07 12/30/21 01:49 Temperature 98.7 F Pulse Rate 110 H Respiratory Rate 18 16 16 Blood Pressure 158/91 H Pulse Oximetry 96 Oxygen Delivery Method Room Air 12/30/21 04:00 12/30/21 05:56 12/30/21 08:32 Temperature 99.3 F Pulse Rate 45 L Respiratory Rate 16 16 18 Blood Pressure 142/87 H Pulse Oximetry 98 Oxygen Delivery Method Room Air BMI result Body Mass Index 29.7 Labs Results: 12/29/21 18:56 12/29/21 18:56 Labs: Laboratory Results - last 48 hr 12/29/21 12/29/21 12/29/21 18:56 18:56 18:56 WBC 12.1 H RBC 4.19 L Hgb 12.3 Hct 38.8 MCV 92.6 MCH 29.4 MCHC 31.7 RDW 14.1 Plt Count 316 MPV 9.3 L Immature Gran % (Auto) 0.2 Neut % (Auto) 69.8 Lymph % (Auto) 22.7 [place] % (Auto) 6.1 Eos % (Auto) 0.8 Baso % (Auto) 0.4 Lymph # (Auto) 2.8 [place] # (Auto) 0.7 Eos # (Auto) 0.1 Baso # (Auto) 0.1 Abs Immat Gran (auto) 0.03 Absolute Neuts (auto) 8.4 H Absolute Nucleated RBC 0.000 Nucleated RBC % (auto) 0.0 ESR Sodium 142 Potassium 3.7 Chloride 105 Carbon Dioxide 29 Anion Gap 12 BUN 22 H D Creatinine 1.14 Estim Creat Clear Calc 49.6 Estimated GFR 51 Random Glucose 159 H Calcium 9.4 D Total Bilirubin 0.3 AST 15 ALT 17 Alkaline Phosphatase 109 Total Protein 6.7 Albumin 4.1 TSH Urine Color Urine Appearance Urine pH Ur Specific [place] Urine Protein Urine Glucose (UA) Urine Ketones Urine Blood Urine Nitrite Ur Leukocyte Esterase Urine RBC Urine WBC Ur Squamous Epith Cells Calcium Oxalate Crystal Urine Bacteria Urine Mucus Urine Opiates Screen Urine Fentanyl Screen Ur Barbiturates Screen Ur Phencyclidine Scrn Ur Amphetamines Screen U Benzodiazepines Scrn [place] < 0.10 L Urine Cocaine Screen U Marijuana (THC) Screen Ethyl Alcohol COVID-19 (IRVIN) COVID-19 Clin Com 12/29/21 12/29/21 12/29/21 18:56 18:56 22:13 WBC RBC Hgb Hct MCV MCH MCHC RDW Plt Count MPV Immature Gran % (Auto) Neut % (Auto) Lymph % (Auto) [place] % (Auto) Eos % (Auto) Baso % (Auto) Lymph # (Auto) [place] # (Auto) Eos # (Auto) Baso # (Auto) Abs Immat Gran (auto) Absolute Neuts (auto) Absolute Nucleated RBC Nucleated RBC % (auto) ESR Sodium Potassium Chloride Carbon Dioxide Anion Gap BUN Creatinine Estim Creat Clear Calc Estimated GFR Random Glucose Calcium Total Bilirubin AST ALT Alkaline Phosphatase Total Protein Albumin TSH Urine Color YELLOW Urine Appearance HAZY Urine pH 6.0 Ur Specific [place] 1.025 Urine Protein NEG Urine Glucose (UA) NEG Urine Ketones 5 Urine Blood TRACE Urine Nitrite NEG Ur Leukocyte Esterase 1+ H Urine RBC 1-4 Urine WBC 5-9 H Ur Squamous Epith Cells 4+ Calcium Oxalate Crystal 1+ Urine Bacteria 2+ Urine Mucus 4+ Urine Opiates Screen Urine Fentanyl Screen Ur Barbiturates Screen Ur Phencyclidine Scrn Ur Amphetamines Screen U Benzodiazepines Scrn [place] Urine Cocaine Screen U Marijuana (THC) Screen Ethyl Alcohol < 10 COVID-19 (IRVIN) Negative COVID-19 Clin Com See Note 12/29/21 12/30/21 12/30/21 22:13 15:40 15:40 WBC RBC Hgb Hct MCV MCH MCHC RDW Plt Count MPV Immature Gran % (Auto) Neut % (Auto) Lymph % (Auto) [place] % (Auto) Eos % (Auto) Baso % (Auto) Lymph # (Auto) [place] # (Auto) Eos # (Auto) Baso # (Auto) Abs Immat Gran (auto) Absolute Neuts (auto) Absolute Nucleated RBC Nucleated RBC % (auto) ESR 14 Sodium Potassium Chloride Carbon Dioxide Anion Gap BUN Creatinine Estim Creat Clear Calc Estimated GFR Random Glucose Calcium Total Bilirubin AST ALT Alkaline Phosphatase Total Protein Albumin TSH 1.32 Urine Color Urine Appearance Urine pH Ur Specific [place] Urine Protein Urine Glucose (UA) Urine Ketones Urine Blood Urine Nitrite Ur Leukocyte Esterase Urine RBC Urine WBC Ur Squamous Epith Cells Calcium Oxalate Crystal Urine Bacteria Urine Mucus Urine Opiates Screen Not Detected Urine Fentanyl Screen Not Detected Ur Barbiturates Screen Not Detected Ur Phencyclidine Scrn Not Detected Ur Amphetamines Screen Not Detected U Benzodiazepines Scrn Not Detected [place] Urine Cocaine Screen Not Detected U Marijuana (THC) Screen Not Detected Ethyl Alcohol COVID-19 (IRVIN) COVID-19 Clin Com Imaging Radiology Impressions: ITS Impressions Head CT 12/30/21 14:01 IMPRESSION: Unremarkable exam. Meds/Allergies Meds Home Medications Medication Instructions Recorded Confirmed Type quetiapine 200 mg tablet 400 mg PO BEDTIME 12/29/21 12/29/21 History trazodone 50 mg tablet 25 mg PO BEDTIME PRN insomnia 12/29/21 12/29/21 History Allergies Allergies Allergy/AdvReac Type Severity Reaction Status Date / Time No Known Allergies Allergy Verified 10/27/21 12:12 Mental Status Exam Mental Status Exam Narrative: Patient Appearance:?Appropriate, hospital attire, overweight Patient Orientation:?Person, Place and Situation Level of Consciousness:?Alert Patient Behavior:?Guarded, Suspicious, Good Eye Contact Mood Description:?Suspicious Affect Description:?Flat Patient Cognition Impaired:?No Ability to Follow Directions:?Good Speech Pattern:?Spontaneous Speech and Soft-Spoken Memory Description:?Intact Hallucinations:?Auditory Delusions:?Paranoid Ideation Thought Process:?Distracted Thought Content:?positive for [place] and positive for Suicidal Ideation Depressive Symptoms:?Insomnia and Difficulty Sleeping Judgment:?limited, impulsive Assessment & Plan Assessment & Plan (1) MDD (major depressive disorder), single episode, severe with psychosis: Status: Acute Code(s): F32.3 - Major depressive disorder, single episode, severe with psychotic features Plan Mrs. Wyman is a 51 year-old woman with hx of MDD with psychosis, admitted to on 10/2021 for similar presentation, new onset AH, depressed mood since 2020. Utox negative. She was brought via EMS on section 12 (unclear who called crisis) expressing suicidal ideation in context of feeling overwhelmed by command auditory hallucinations. Per discharge summary from Dr. Shiva Mars- pt was trialed on 3 antipsychotics that were not effective including risperidone, olanzapine, thorazine. She apparently responded to combination of sertraline, lithium and seroquel. Pt with some psychomotor retardation, internally preoccupied. Pt restarted on lithium, seroquel and sertraline in the ED setting. Head CT negative. Plan: Pt seen for psych consult in ED today by Erika Hurst, meds from discharge were re-started at [place] 300mg po BID, seroquel 300mg po qhs, sertraline 50mg po daily.? 3. given report of fairly new onset of psychosis in past 6-7 months- will do head CT to r/o medical causes, she has not had one. Q15 min safety checks, CV Monitor response to medications. Monitor for safety in the milieu. Discharge on stabilization. Patient seen. Chart reviewed. Discussed with team. Obtain collateral contact info?as needed Patient educated on: medication risk/benefits and therapeutic strategies Reason for continued inpatient stay Substantial Risk for: harm to self, harm to others, inability to function, rapid decompensation and med/psych decompensation
[2021-12-30] MEDS: Metoprolol Tartrate 12.5 MG HALFTAB PO (21:33)
[2021-12-30] MEDS: Lithium Carbonate 300 MG CAPSULE PO (21:33)
[2021-12-30] MEDS: QUEtiapine Fumarate 300 MG TABLET PO (21:34)
--- NOTE | 2021-12-31 00:19 | PC.ADMIT ---
A Uzbek-speaking female aged 51 years was admitted to the [facility] at 1620 as a CV following referral from [facility] and CARE team. Pt was recently d/c from on 11/14/21; pt did not follow through with treatment plan or take medications as prescribed and experienced decompensation. Pt reported she had difficulty arranging transportation to attend appointments. Pt also had stated she was isolating and afraid to leave the home. Pt is reported to be suspicious of medication. Pt was brought to [facility] via EMT from following a call from pt's mother. Mother called in response to pt holding a knife to her wrist and threatening suicide. Pt has no prior psychiatric hospitalization or history before her October admission. Pt is grieving the loss of her of 11 years in July or August from kidney disease. In CARE team assessment, pt was holding her dog while holding the knife to her wrist. Pt had disclosed AH voices commanding over past few weeks to harm herself, others and her dog. Pt had stated these commanding voices are very distressing. Pt denied current SI while being assessed by this technical report writer and stated she can seek out help from staff. Pt denied current urges to self harm, but acknowledged she has history of self harm. Pt reports poor sleep, with difficulty falling asleep and difficulty remaining asleep. Pt reports she has nightmares. Pt denies HI. Pt reports poor appetite and loss of around 20lbs. Pt was calm and cooperative during admission. Pt denies substance use and reports social drinking of Etoh monthly, 1-2 drinks. Medical issues includes HTN. [id number] done, admission orders obtained and treatment plan completed. Pt is resting in her bedroom on 15 minute safety checks at this time.
[2021-12-31 09:00] VITALS: BP 105/73; PULSE 113; TEMP 37.2
--- NOTE | 2021-12-31 09:05 | MHC.CLN ---
RE: CONSULT HT 4 WT 147# IBW 95#+/-10% PT IS 155% IBW INDICATES OBESE FOR HT; BMI 29.7 PT REPORTS WT LOSS OF 20# WITH POOR PO ARCHITECT INTERN ON NURSING ADMISSION ASSESSMENT HOWEVER, PT RECENTLY DISCHARGED FROM 11/14/21 PREVIOUS WT HX FOLLOWS: 66.7KG (12/29/21) 65KG (10/27/21) PT DOES NOT TRIGGER FOR SIGNIFICANT WT LOSS AT THIS TIME DIET RX: REGULAR-APPROPRIATE NOTED ALBUMIN 4.1-WNL PLAN: MONITOR PO INTAKE CLOSELY IF PO POOR (</=25% X 3 DAYS), CAN ADD ENSURE BID TO INCREASE KCALS
[2021-12-31] MEDS: Metoprolol Tartrate 12.5 MG HALFTAB PO ×2 (09:13→21:16)
[2021-12-31] MEDS: lisinopriL 10 MG TABLET 30 MG PO (09:13)
[2021-12-31] MEDS: LORazepam 1 MG TABLET PO ×2 (09:13→21:16)
[2021-12-31] MEDS: Sertraline HCL 50 MG TABLET PO (09:13)
[2021-12-31] MEDS: Lithium Carbonate 300 MG CAPSULE PO (09:13)
[2021-12-31 09:29] LABS: Cholesterol 179 mg/dL; HDL Cholesterol 48 mg/dL; LDL Cholesterol Calculated 108 mg/dl; Triglycerides 118 mg/dL
--- NOTE | 2021-12-31 13:58 | P.PNPSI_ITS ---
Subjective Subjective Date of Service: 12/31/21 Reason For Visit: Depression with Psychotic Features Interim History: seen with medical writer Patient reports that her mood is better and that she is feeling more calm, less anxious. She also says she is sleeping more. SI is fully resolved. Patient continues however to have loud auditory hallucinations that are driving me crazy and continue nonstop. They say to kill herself, to hurt her family to cut her wrists. Patient said that prior to this admission she was out of control and thoughts of cutting her dogs wrist and that her own and obedience to the voices. Patient agrees with current medication regimen for now. She agrees PI and complains of dysuria and urgency. -patient says that she forgets to take medication at especially nighttime ones Mental Status Exam Mental Status Exam Narrative: Pt is alert and oriented; behavior is cooperative and calm; patient is not in distress; dressed in hospital gown with unkempt hair but adequate hygiene; mood is described as better and affect congruent, calm; eye contact appropriate; Speech is normal rate, volume and prosody and not pressured; no psychomotor agitation/retardation present; thought process is goal directed; Thought content is on dealing with AH that are commanding; otherwise pertinent to relevant topics and without any delusional/paranoid ideations or grandiosity; denies any SI/HI. Command AH; Patients insight and judgment is impaired but improved since admission. Diagnostics Vital Signs (24Hr): Vital Signs - 24 hr 12/30/21 17:10 12/31/21 09:00 Temperature 97.8 F 98.9 F Pulse Rate 107 H 113 H Blood Pressure 127/81 105/73 BMI result Body Mass Index 29.7 Labs Results: 12/29/21 18:56 12/29/21 18:56 Labs: Laboratory Results - last 48 hr 12/29/21 12/29/21 12/29/21 18:56 18:56 18:56 WBC 12.1 H RBC 4.19 L Hgb 12.3 Hct 38.8 MCV 92.6 MCH 29.4 MCHC 31.7 RDW 14.1 Plt Count 316 MPV 9.3 L Immature Gran % (Auto) 0.2 Neut % (Auto) 69.8 Lymph % (Auto) 22.7 [place] % (Auto) 6.1 Eos % (Auto) 0.8 Baso % (Auto) 0.4 Lymph # (Auto) 2.8 [place] # (Auto) 0.7 Eos # (Auto) 0.1 Baso # (Auto) 0.1 Abs Immat Gran (auto) 0.03 Absolute Neuts (auto) 8.4 H Absolute Nucleated RBC 0.000 Nucleated RBC % (auto) 0.0 ESR Sodium 142 Potassium 3.7 Chloride 105 Carbon Dioxide 29 Anion Gap 12 BUN 22 H D Creatinine 1.14 Estim Creat Clear Calc 49.6 Estimated GFR 51 Random Glucose 159 H Calcium 9.4 D Total Bilirubin 0.3 AST 15 ALT 17 Alkaline Phosphatase 109 Total Protein 6.7 Albumin 4.1 Triglycerides Cholesterol LDL Cholesterol, Calc HDL Cholesterol TSH Urine Color Urine Appearance Urine pH Ur Specific [place] Urine Protein Urine Glucose (UA) Urine Ketones Urine Blood Urine Nitrite Ur Leukocyte Esterase Urine RBC Urine WBC Ur Squamous Epith Cells Calcium Oxalate Crystal Urine Bacteria Urine Mucus Urine Opiates Screen Urine Fentanyl Screen Ur Barbiturates Screen Ur Phencyclidine Scrn Ur Amphetamines Screen U Benzodiazepines Scrn [place] < 0.10 L Urine Cocaine Screen U Marijuana (THC) Screen Ethyl Alcohol COVID-19 (IRVIN) COVID-19 Clin Com 12/29/21 12/29/21 12/29/21 18:56 18:56 22:13 WBC RBC Hgb Hct MCV MCH MCHC RDW Plt Count MPV Immature Gran % (Auto) Neut % (Auto) Lymph % (Auto) [place] % (Auto) Eos % (Auto) Baso % (Auto) Lymph # (Auto) [place] # (Auto) Eos # (Auto) Baso # (Auto) Abs Immat Gran (auto) Absolute Neuts (auto) Absolute Nucleated RBC Nucleated RBC % (auto) ESR Sodium Potassium Chloride Carbon Dioxide Anion Gap BUN Creatinine Estim Creat Clear Calc Estimated GFR Random Glucose Calcium Total Bilirubin AST ALT Alkaline Phosphatase Total Protein Albumin Triglycerides Cholesterol LDL Cholesterol, Calc HDL Cholesterol TSH Urine Color YELLOW Urine Appearance HAZY Urine pH 6.0 Ur Specific [place] 1.025 Urine Protein NEG Urine Glucose (UA) NEG Urine Ketones 5 Urine Blood TRACE Urine Nitrite NEG Ur Leukocyte Esterase 1+ H Urine RBC 1-4 Urine WBC 5-9 H Ur Squamous Epith Cells 4+ Calcium Oxalate Crystal 1+ Urine Bacteria 2+ Urine Mucus 4+ Urine Opiates Screen Urine Fentanyl Screen Ur Barbiturates Screen Ur Phencyclidine Scrn Ur Amphetamines Screen U Benzodiazepines Scrn [place] Urine Cocaine Screen U Marijuana (THC) Screen Ethyl Alcohol < 10 COVID-19 (IRVIN) Negative COVID-19 Clin Com See Note 12/29/21 12/30/21 12/30/21 22:13 15:40 15:40 WBC RBC Hgb Hct MCV MCH MCHC RDW Plt Count MPV Immature Gran % (Auto) Neut % (Auto) Lymph % (Auto) [place] % (Auto) Eos % (Auto) Baso % (Auto) Lymph # (Auto) [place] # (Auto) Eos # (Auto) Baso # (Auto) Abs Immat Gran (auto) Absolute Neuts (auto) Absolute Nucleated RBC Nucleated RBC % (auto) ESR 14 Sodium Potassium Chloride Carbon Dioxide Anion Gap BUN Creatinine Estim Creat Clear Calc Estimated GFR Random Glucose Calcium Total Bilirubin AST ALT Alkaline Phosphatase Total Protein Albumin Triglycerides Cholesterol LDL Cholesterol, Calc HDL Cholesterol TSH 1.32 Urine Color Urine Appearance Urine pH Ur Specific [place] Urine Protein Urine Glucose (UA) Urine Ketones Urine Blood Urine Nitrite Ur Leukocyte Esterase Urine RBC Urine WBC Ur Squamous Epith Cells Calcium Oxalate Crystal Urine Bacteria Urine Mucus Urine Opiates Screen Not Detected Urine Fentanyl Screen Not Detected Ur Barbiturates Screen Not Detected Ur Phencyclidine Scrn Not Detected Ur Amphetamines Screen Not Detected U Benzodiazepines Scrn Not Detected [place] Urine Cocaine Screen Not Detected U Marijuana (THC) Screen Not Detected Ethyl Alcohol COVID-19 (IRVIN) COVID-19 [employer] 12/31/21 07:56 WBC RBC Hgb Hct MCV MCH MCHC RDW Plt Count MPV Immature Gran % (Auto) Neut % (Auto) Lymph % (Auto) [place] % (Auto) Eos % (Auto) Baso % (Auto) Lymph # (Auto) [place] # (Auto) Eos # (Auto) Baso # (Auto) Abs Immat Gran (auto) Absolute Neuts (auto) Absolute Nucleated RBC Nucleated RBC % (auto) ESR Sodium Potassium Chloride Carbon Dioxide Anion Gap BUN Creatinine Estim Creat Clear Calc Estimated GFR Random Glucose Calcium Total Bilirubin AST ALT Alkaline Phosphatase Total Protein Albumin Triglycerides 118 Cholesterol 179 LDL Cholesterol, Calc 108 HDL Cholesterol 48 TSH Urine Color Urine Appearance Urine pH Ur Specific [place] Urine Protein Urine Glucose (UA) Urine Ketones Urine Blood Urine Nitrite Ur Leukocyte Esterase Urine RBC Urine WBC Ur Squamous Epith Cells Calcium Oxalate [place] Urine Bacteria Urine Mucus Urine Opiates Screen Urine Fentanyl Screen Ur Barbiturates Screen Ur Phencyclidine Scrn Ur Amphetamines Screen U Benzodiazepines Scrn [place] Urine Cocaine Screen U Marijuana (THC) Screen Ethyl Alcohol COVID-19 (IRVIN) COVID-19 Clin Com Imaging Radiology Impressions: ITS Impressions Head CT 12/30/21 14:01 IMPRESSION: Unremarkable exam. Medications Medications Current Medications Acetaminophen (Acetaminophen 325 Mg Tablet) 650 mg PO Q6H PRN PRN Reason: Headache/Pain Mild Scale (1-3) Al Hydroxide/Mg Hydroxide (Magnesium Hydrox/Alum Hydrox 30 Ml Oral.Susp) 30 ml PO Q6H PRN PRN Reason: Heartburn/Nausea Hydroxyzine HCl (Hydroxyzine Hcl 25 Mg Tablet) 25 mg PO BEDTIME PRN PRN Reason: Anxiety Lisinopril (Lisinopril 10 Mg Tablet) 30 mg PO DAILY BASIL; Protocol Last Admin: 12/31/21 09:13 Dose: 30 mg [place] Carbonate ([place] Carbonate Er 450 Mg Tablet.Er) 450 mg PO BEDTIME BASIL Stop: 12/31/21 23:59 [place] Carbonate ([place] Carbonate Er 450 Mg Tablet.Er) 450 mg PO DAILY BASIL Lorazepam (Lorazepam 1 Mg Tablet) 1 mg PO BID BASIL Last Admin: 12/31/21 09:13 Dose: 1 mg Magnesium Hydroxide (Milk Of Magnesia 30 Ml Oral.Susp) 30 ml PO DAILY PRN PRN Reason: Constipation Metoprolol Tartrate (Metoprolol Tartrate 12.5 Mg Halftab) 12.5 mg PO BID BASIL; Protocol Last Admin: 12/31/21 09:13 Dose: 12.5 mg Pharmacy Consult (Consult Rx Perform Med Rec) 1 each MISCELLANE ONCE PRN PRN Reason: Consult order Quetiapine Fumarate (Quetiapine Fumarate 300 Mg Tablet) 300 mg PO BEDTIME BASIL Last Admin: 12/30/21 21:34 Dose: 300 mg Sertraline HCl (Sertraline Hcl 50 Mg Tablet) 50 mg PO DAILY BASIL Last Admin: 12/31/21 09:13 Dose: 50 mg Trazodone HCl (Trazodone Hcl 50 Mg Tablet) 50 mg PO BEDTIME PRN PRN Reason: insomnia Allergies Allergies Allergy/AdvReac Type Severity Reaction Status Date / Time No Known Allergies Allergy Verified 10/27/21 12:12 Assessment & Plan Assessment & Plan (1) Psychotic disorder: Status: Acute Code(s): F29 - Unspecified psychosis not due to a substance or known physiological condition Assessment and Plan: changed diagnosis to psychotic disorder, with a rule out of schizoaffective disorder as collateral implies possible longer history of psychiatric illness that was subclinical (2) Anxiety: Status: Acute Code(s): F41.9 - Anxiety disorder, unspecified Plan Mrs. Wyman is a 51 year-old woman with hx of MDD with psychosis, admitted to on 10/2021 for similar presentation, new onset AH, depressed mood since 2020. Utox negative. She was brought via EMS on section 12 (unclear who called crisis) expressing suicidal ideation in context of feeling overwhelmed by command auditory hallucinations. Per discharge summary from Dr. Shiva Mars- pt was trialed on 3 antipsychotics that were not effective including risperidone, olanzapine, thorazine. She apparently responded to combination of sertraline, lithium and seroquel. Pt with some psychomotor retardation, internally preoccupied. Pt restarted on lithium, seroquel and sertraline in the ED setting. Head CT negative. -will change diagnosis to psychotic disorder, with a rule out of schizoaffective disorder as collateral implies possible longer history of psychiatric illness that was subclinical 12/31: Patient has improved some, calm behaviors, AH continues to be intrusive and bothersome Plan: Q15 min safety checks CV START Ceftin 250mg BID for 7 days for UTI meds from last discharge re-started Switched to [place] ER 450mgmg daily (single daily dosing will help increase compliance; patient wanted in the morning since she forgets at bedtime) seroquel 300mg po qhs, sertraline 50mg po daily.? Head CT done and unremarkable Monitor response to medications. Monitor for safety in the milieu. Discharge on stabilization. Patient seen. Chart reviewed. Discussed with team. Obtain collateral contact info?as needed Head CT 12/30 CT/CT head/brain wo con IMPRESSION: Unremarkable exam. I spent minutes with the patient and/or on the patient floor today, grea ter than?50% of which was spent counseling/coordinating care. Patient educated on: diagnosis, medication risk/benefits and medical condition Informed Consent: understands Reason for contiued inpatient stay Substantial Risk for: rapid decompensation
[2021-12-31 16:32] LABS: Appearance Urine HAZY; Color Urine YELLOW; Glucose Urine UA NEG (NEG); Leukocyte Esterase Urine 2+ (NEG); Nitrite Urine NEG (NEG); Urine Blood NEG (NEG); Urine Ketones NEG (NEG); Urine Protein NEG (NEG-TRACE)
[2021-12-31 16:34] LABS: UPreg QC Valid YES; Urine Pregnancy NEGATIVE (NEGATIVE)
[2021-12-31 16:38] LABS: Bacteria Urine 1+ /LPF; RBC Urine 0 /HPF (0); Squamous Epithelial Cell Urine 2+ /LPF
[2021-12-31 17:46] VITALS: BP 114/64; PULSE 106; TEMP 36.6; O2SAT 97
[2021-12-31 21:15] VITALS: BP 131/88; PULSE 112
[2021-12-31] MEDS: Lithium Carbonate ER 450 MG TABLET.ER PO (21:16)
[2021-12-31] MEDS: QUEtiapine Fumarate 300 MG TABLET PO (21:19)
[2022-01-01 09:15] VITALS: BP 123/67; PULSE 118; TEMP 36.8
[2022-01-01] MEDS: lisinopriL 10 MG TABLET 30 MG PO (09:21)
[2022-01-01] MEDS: Lithium Carbonate ER 450 MG TABLET.ER PO (09:22)
[2022-01-01] MEDS: Metoprolol Tartrate 12.5 MG HALFTAB PO ×2 (09:22→22:22)
[2022-01-01] MEDS: LORazepam 1 MG TABLET PO ×2 (09:22→22:22)
[2022-01-01] MEDS: Sertraline HCL 50 MG TABLET PO (09:22)
--- NOTE | 2022-01-01 09:42 | P.PNPSI_ITS ---
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 She still has AH but they are less intense. Slept ok and tolerating medications. Pt's sister spoke to SW and said when patient was dysregulated prior to admission, she had a knife and was taking about killing her father and then her dog. This is consistent with Command AH that pt was experiencing. Mental Status Exam Mental Status Exam Narrative: Pt is alert and oriented; behavior is cooperative and calm; patient is not in distress; dressed in hospital gown with combed hair and adequate hygiene; mood is described better and affect congruent, calm; eye contact appropriate; Speech is normal rate, volume and prosody and not pressured; no psychomotor agitation/retardation present; thought process is goal directed; Thought content is on dealing with AH that are commanding but getting less intense; otherwise pertinent to relevant topics and without any delusional/paranoid ideations or grandiosity; denies any SI/HI. Command AH remain; Patients insight and judgment is impaired but improved since admission. Diagnostics Vital Signs (24Hr): Vital Signs - 24 hr 12/31/21 17:46 12/31/21 21:15 01/01/22 09:15 Temperature 97.8 F 98.3 F Pulse Rate 106 H 112 H 118 H Blood Pressure 114/64 131/88 123/67 Pulse Oximetry 97 Oxygen Delivery Method Room Air BMI result Body Mass Index 29.7 Labs Results: 12/29/21 18:56 12/29/21 18:56 Labs: Laboratory Results - last 48 hr 12/30/21 12/30/21 12/31/21 15:40 15:40 07:56 ESR 14 Triglycerides 118 Cholesterol 179 LDL Cholesterol, Calc 108 HDL Cholesterol 48 TSH 1.32 Urine Color Urine Appearance Urine pH Ur Specific [place] Urine Protein Urine Glucose (UA) Urine Ketones Urine Blood Urine Nitrite Ur Leukocyte Esterase Urine RBC Urine WBC Ur Squamous Epith Cells Urine Bacteria Urine Test 12/31/21 12/31/21 Unknown Unknown ESR Triglycerides Cholesterol LDL Cholesterol, Calc HDL Cholesterol TSH Urine Color YELLOW Urine Appearance HAZY Urine pH 6.0 Ur Specific [place] 1.010 Urine Protein NEG Urine Glucose (UA) NEG Urine Ketones NEG Urine Blood NEG Urine Nitrite NEG Ur Leukocyte Esterase 2+ H Urine RBC 0 Urine WBC 1-4 Ur Squamous Epith Cells 2+ Urine Bacteria 1+ Urine Test NEGATIVE Imaging Radiology Impressions: ITS Impressions Head CT 12/30/21 14:01 IMPRESSION: Unremarkable exam. Medications Medications Current Medications Acetaminophen (Acetaminophen 325 Mg Tablet) 650 mg PO Q6H PRN PRN Reason: Headache/Pain Mild Scale (1-3) Al Hydroxide/Mg Hydroxide (Magnesium Hydrox/Alum Hydrox 30 Ml Oral.Susp) 30 ml PO Q6H PRN PRN Reason: Heartburn/Nausea Cefuroxime Axetil (Cefuroxime Axetil 250 Mg Tablet) 250 mg PO BID [facility] Stop: 01/07/22 11:00 Last Admin: 01/01/22 09:22 Dose: 250 mg Hydroxyzine HCl (Hydroxyzine Hcl 25 Mg Tablet) 25 mg PO BEDTIME PRN PRN Reason: Anxiety Lisinopril (Lisinopril 10 Mg Tablet) 30 mg PO DAILY [facility]; Protocol Last Admin: 01/01/22 09:21 Dose: 30 mg [place] Carbonate ([place] Carbonate Er 450 Mg Tablet.Er) 450 mg PO DAILY [facility] Last Admin: 01/01/22 09:22 Dose: 450 mg Lorazepam (Lorazepam 1 Mg Tablet) 1 mg PO BID [facility] Last Admin: 01/01/22 09:22 Dose: 1 mg Magnesium Hydroxide (Milk Of Magnesia 30 Ml Oral.Susp) 30 ml PO DAILY PRN PRN Reason: Constipation Metoprolol Tartrate (Metoprolol Tartrate 12.5 Mg Halftab) 12.5 mg PO BID [facility]; Protocol Last Admin: 01/01/22 09:22 Dose: 12.5 mg Pharmacy Consult (Consult Rx Perform Med Rec) 1 each MISCELLANE ONCE PRN PRN Reason: Consult order Quetiapine Fumarate (Quetiapine Fumarate 300 Mg Tablet) 300 mg PO BEDTIME [facility] Last Admin: 12/31/21 21:19 Dose: 300 mg Sertraline HCl (Sertraline Hcl 50 Mg Tablet) 50 mg PO DAILY [facility] Last Admin: 01/01/22 09:22 Dose: 50 mg Trazodone HCl (Trazodone Hcl 50 Mg Tablet) 50 mg PO BEDTIME PRN PRN Reason: insomnia Allergies Allergies Allergy/AdvReac Type Severity Reaction Status Date / Time No Known Allergies Allergy Verified 10/27/21 12:12 Assessment & Plan Assessment & Plan (1) Psychotic disorder: Status: Acute Code(s): F29 - Unspecified psychosis not due to a substance or known physiological condition Assessment and Plan: changed diagnosis to psychotic disorder, with a rule out of schizoaffective disorder as collateral implies possible longer history of psychiatric illness that was subclinical (2) Anxiety: Status: Acute Code(s): F41.9 - Anxiety disorder, unspecified Plan Mrs. Wyman is a 51 year-old woman with hx of MDD with psychosis, admitted to on 10/2021 for similar presentation, new onset AH, depressed mood since 2020. Utox negative. She was brought via EMS on section 12 (unclear who called crisis) expressing suicidal ideation in context of feeling overwhelmed by command auditory hallucinations. Per discharge summary from Dr. Shiva Mars- pt was trialed on 3 antipsychotics that were not effective including risperidone, olanzapine, thorazine. She apparently responded to combination of sertraline, lithium and seroquel. Pt with some psychomotor retardation, internally preoccupied. Pt restarted on lithium, seroquel and sertraline in the ED setting. Head CT negative. -will change diagnosis to psychotic disorder, with a rule out of schizoaffective disorder as collateral implies possible longer history of psychiatric illness that was subclinical 12/31: Patient has improved some, calm behaviors, AH continues to be intrusive and bothersome 01/01: some modest improvement in both mood and AH which remain but are less intense than on admission; discussed with team and pt's sister that patient may need a VNA in order to remain adherent and safe in the community. Plan: Q15 min safety checks CV continue Ceftin 250mg BID for 7 days for UTI meds from last discharge re-started Switched to [place] ER 450mgmg daily (single daily dosing will help increase compliance; patient wanted in the morning since she forgets at bedtime) seroquel 300mg po qhs, sertraline 50mg po daily.? Head CT done and unremarkable Monitor response to medications. Monitor for safety in the milieu. Discharge on stabilization. Patient seen. Chart reviewed. Discussed with team. Obtain collateral contact info?as needed Head CT 12/30 CT/CT head/brain wo con IMPRESSION: Unremarkable exam. I spent minutes with the patient and/or on the patient floor today, greater than?50% of which was spent counseling/coordinating care. Patient educated on: diagnosis Informed Consent: understands Reason for contiued inpatient stay Substantial Risk for: rapid decompensation
[2022-01-01 14:22] LABS: Anti Nuclear Antibody Screen NEGATIVE (NEGATIVE)
[2022-01-01 18:00] VITALS: BP 118/64; PULSE 110; RESP 18; TEMP 36.6; O2SAT 96
[2022-01-01] MEDS: QUEtiapine Fumarate 300 MG TABLET PO (22:21)
[2022-01-01] MEDS: traZODone HCL 50 MG TABLET PO (22:21)
[2022-01-02 07:00] VITALS: BMI 30.6
[2022-01-02 08:30] VITALS: BP 110/68; PULSE 68; TEMP 36.2
[2022-01-02] MEDS: Lithium Carbonate ER 450 MG TABLET.ER PO (09:18)
[2022-01-02] MEDS: lisinopriL 10 MG TABLET 30 MG PO (09:18)
[2022-01-02] MEDS: Sertraline HCL 50 MG TABLET PO (09:18)
[2022-01-02] MEDS: Metoprolol Tartrate 12.5 MG HALFTAB PO ×2 (09:18→21:14)
[2022-01-02] MEDS: LORazepam 1 MG TABLET PO ×2 (09:18→21:14)
--- NOTE | 2022-01-02 13:19 | P.PNPSI_ITS ---
Subjective Subjective Date of Service: 01/02/22 Reason For Visit: Depression with Psychotic Features Interim History: Mood is a little better. Sleep is a little better. She still has auditory hallucinations but she says these to or a little better, little less intense. She would like to continue on current medication regimen for now and see if symptoms continue to improve, rather than making any medication changes. Ampoule Examiner reviewed medications and sees that patient was started on lisinopril for some reason while in the ED; given the fact that she is also on lithium, there are likely better choices for antihypertensives; will discontinue for now monitor BP Diagnostics Vital Signs (24Hr): Vital Signs - 24 hr 01/01/22 18:00 01/02/22 08:30 Temperature 97.8 F 97.2 F Pulse Rate 110 H 68 Respiratory Rate 18 Blood Pressure 118/64 110/68 Pulse Oximetry 96 Oxygen Delivery Method Room Air BMI result Body Mass Index 29.7 Labs Results: 12/29/21 18:56 12/29/21 18:56 Labs: Laboratory Results - last 48 hr 12/30/21 12/31/21 12/31/21 15:40 Unknown Unknown Urine Color YELLOW Urine Appearance HAZY Urine pH 6.0 Ur Specific [place] 1.010 Urine Protein NEG Urine Glucose (UA) NEG Urine Ketones NEG Urine Blood NEG Urine Nitrite NEG Ur Leukocyte Esterase 2+ H Urine RBC 0 Urine WBC 1-4 Ur Squamous Epith Cells 2+ Urine Bacteria 1+ Urine Test NEGATIVE [place] Screen NEGATIVE [place] Titer TNP KEL[place]Y Titer 2 TNP KELSEY Titer 3 TNP [place] Pattern TNP [place] Pattern 2 TNP [place] Pattern 3 TNP Imaging Radiology Impressions: ITS Impressions Head CT 12/30/21 14:01 IMPRESSION: Unremarkable exam. Medications Medications Current Medications Acetaminophen (Acetaminophen 325 Mg Tablet) 650 mg PO Q6H PRN PRN Reason: Headache/Pain Mild Scale (1-3) Al Hydroxide/Mg Hydroxide (Magnesium Hydrox/Alum Hydrox 30 Ml Oral.Susp) 30 ml PO Q6H PRN PRN Reason: Heartburn/Nausea Cefuroxime Axetil (Cefuroxime Axetil 250 Mg Tablet) 250 mg PO BID [facility] Stop: 01/07/22 11:00 Last Admin: 01/02/22 09:18 Dose: 250 mg Hydroxyzine HCl (Hydroxyzine Hcl 25 Mg Tablet) 25 mg PO BEDTIME PRN PRN Reason: Anxiety Lisinopril (Lisinopril 10 Mg Tablet) 30 mg PO DAILY [facility]; Protocol Last Admin: 01/02/22 09:18 Dose: 30 mg [place] Carbonate ([place] Carbonate Er 450 Mg Tablet.Er) 450 mg PO DAILY [facility] Last Admin: 01/02/22 09:18 Dose: 450 mg Lorazepam (Lorazepam 1 Mg Tablet) 1 mg PO BID [facility] Last Admin: 01/02/22 09:18 Dose: 1 mg Magnesium Hydroxide (Milk Of Magnesia 30 Ml Oral.Susp) 30 ml PO DAILY PRN PRN Reason: Constipation Metoprolol Tartrate (Metoprolol Tartrate 12.5 Mg Halftab) 12.5 mg PO BID [facility]; Protocol Last Admin: 01/02/22 09:18 Dose: 12.5 mg Pharmacy Consult (Consult Rx Perform Med Rec) 1 each MISCELLANE ONCE PRN PRN Reason: Consult order Quetiapine Fumarate (Quetiapine Fumarate 300 Mg Tablet) 300 mg PO BEDTIME [facility] Last Admin: 01/01/22 22:21 Dose: 300 mg Sertraline HCl (Sertraline Hcl 50 Mg Tablet) 50 mg PO DAILY [facility] Last Admin: 01/02/22 09:18 Dose: 50 mg Trazodone HCl (Trazodone Hcl 50 Mg Tablet) 50 mg PO BEDTIME PRN PRN Reason: insomnia Last Admin: 01/01/22 22:21 Dose: 50 mg Allergies Allergies Allergy/AdvReac Type Severity Reaction Status Date / Time No Known Allergies Allergy Verified 10/27/21 12:12 Assessment & Plan Assessment & Plan (1) Psychotic disorder: Status: Acute Code(s): F29 - Unspecified psychosis not due to a substance or known physiological condition Assessment and Plan: changed diagnosis to psychotic disorder, with a rule out of schizoaffective disorder as collateral implies possible longer history of psychiatric illness that was subclinical (2) Anxiety: Status: Acute Code(s): F41.9 - Anxiety disorder, unspecified Plan Mrs. Wyman is a 51 year-old woman with hx of MDD with psychosis, admitted to on 10/2021 for similar presentation, new onset AH, depressed mood since 2020. Utox negative. She was brought via EMS on section 12 (unclear who called crisis) expressing suicidal ideation in context of feeling overwhelmed by command auditory hallucinations. Per discharge summary from Dr. Shiva Mars- pt was tr ialed on 3 antipsychotics that were not effective including risperidone, olanzapine, thorazine. She apparently responded to combination of sertraline, lithium and seroquel. Pt with some psychomotor retardation, internally preoccupied. Pt restarted on lithium, seroquel and sertraline in the ED setting. Head CT negative. -will change diagnosis to psychotic disorder, with a rule out of schizoaffective disorder as collateral implies possible longer history of psychiatric illness that was subclinical 12/31: Patient has improved some, calm behaviors, AH continues to be intrusive and bothersome 01/01: some modest improvement in both mood and AH which remain but are less intense than on admission; discussed with team and pt's sister that patient may need a VNA in order to remain adherent and safe in the community. 01/02 Mood, sleep a little better; continues with AH, though also a little better; since improving, will leave current med regimen as is; in review sees that patient was started on lisinopril for some reason while in the ED; discussed with outpatient provider who says she did not restart this medication and the last script she wrote was for last year. Given the fact that she is also on lithium, there are likely better choices for antihypertensives; will discontinue for now monitor BP Plan: Q15 min safety checks CV Discontinued Lisinopril given pt is on [place]; not sure why it was started; will monitor BP continue Ceftin 250mg BID for 7 days for UTI meds from last discharge re-started Switched to [place] ER 450mgmg daily (single daily dosing will help increase compliance; patient wanted in the morning since she forgets at bedtime) seroquel 300mg po qhs, sertraline 50mg po daily.? Head CT done and unremarkable Monitor response to medications. Monitor for safety in the milieu. Discharge on stabilization. Patient seen. Chart reviewed. Discussed with team. Obtain collateral contact info?as needed Head CT 12/30 CT/CT head/brain wo con IMPRESSION: Unremarkable exam. I spent minutes with the patient and/or on the patient floor today, greater than?50% of which was spent counseling/coordinating care. Patient educated on: diagnosis and medication risk/benefits Informed Consent: understands Reason for contiued inpatient stay Substantial Risk for: inability to function and rapid decompensation
[2022-01-02] MEDS: Magnesium Citrate 300 ML SOLUTION PO (18:53)
[2022-01-02 21:00] VITALS: BP 115/57; PULSE 93
[2022-01-02] MEDS: QUEtiapine Fumarate 300 MG TABLET PO (21:14)
[2022-01-02] MEDS: Docusate Sodium 100 MG CAPSULE 200 MG PO (21:14)
[2022-01-03 06:00] VITALS: BP 100/60; PULSE 100; RESP 20; TEMP 36.9; O2SAT 99
[2022-01-03] MEDS: Metoprolol Tartrate 12.5 MG HALFTAB PO ×2 (09:43→21:30)
[2022-01-03] MEDS: LORazepam 1 MG TABLET PO ×2 (09:43→21:30)
[2022-01-03] MEDS: Sertraline HCL 50 MG TABLET PO (09:57)
--- NOTE | 2022-01-03 10:20 | P.PNPSI_ITS ---
Subjective Subjective Date of Service: 01/03/22 Reason For Visit: Depression with Psychotic Features Interim History: Seen with Kyrgyz-speaker Patient reports that she continues to be a little better each day. Voices remain but they are not as loud. Mood is a little better and she says she is fine. Would like to leave meds at current doses since symptoms seem to be resolving Mental Status Exam Mental Status Exam Narrative: Pt is alert and oriented; behavior is cooperative and calm; patient is not in distress; dressed in hospital gown with combed hair and adequate hygiene; mood is described fine and affect congruent, calm; eye contact appropriate; Speech is normal rate, volume and prosody and not pressured; no psychomotor agitation/retardation present; thought process is goal directed; Thought content is on dealing with AH that are commanding but getting less intense; otherwise pertinent to relevant topics and without any delusional/paranoid ideations or g randiosity; denies any SI/HI. Command AH remain; Patients insight and judgment is impaired but improved since admission. Diagnostics Vital Signs (24Hr): Vital Signs - 24 hr 01/02/22 21:00 Pulse Rate 93 Blood Pressure 115/57 L BMI result Body Mass Index 30.6 Labs Results: 12/29/21 18:56 12/29/21 18:56 Labs: Laboratory Results - last 48 hr 12/30/21 15:40 KELSEY Screen NEGATIVE [facility] Titer TNP KELSEY Titer 2 TNP KELSEY Titer 3 TNP KEL[facility] Pattern TNP [facility] Pattern 2 TNP [facility] Pattern 3 TNP Imaging Radiology Impressions: ITS Impressions Head CT 12/30/21 14:01 IMPRESSION: Unremarkable exam. Medications Medications Current Medications Acetaminophen (Acetaminophen 325 Mg Tablet) 650 mg PO Q6H PRN PRN Reason: Headache/Pain Mild Scale (1-3) Al Hydroxide/Mg Hydroxide (Magnesium Hydrox/Alum Hydrox 30 Ml Oral.Susp) 30 ml PO Q6H PRN PRN Reason: Heartburn/Nausea Cefuroxime Axetil (Cefuroxime Axetil 250 Mg Tablet) 250 mg PO BID [facility] Stop: 01/07/22 11:00 Last Admin: 01/03/22 09:43 Dose: 250 mg Docusate Sodium (Docusate Sodium 100 Mg Capsule) 200 mg PO BEDTIME [facility] Last Admin: 01/02/22 21:14 Dose: 200 mg Hydroxyzine HCl (Hydroxyzine Hcl 25 Mg Tablet) 25 mg PO BEDTIME PRN PRN Reason: Anxiety [place] Carbonate ([place] Carbonate Er 450 Mg Tablet.Er) 450 mg PO BEDTIME [facility] Lorazepam (Lorazepam 1 Mg Tablet) 1 mg PO BID [facility] Last Admin: 01/03/22 09:43 Dose: 1 mg Magnesium Hydroxide (Milk Of Magnesia 30 Ml Oral.Susp) 30 ml PO DAILY PRN PRN Reason: Constipation Metoprolol Tartrate (Metoprolol Tartrate 12.5 Mg Halftab) 12.5 mg PO BID [facility]; Protocol Last Admin: 01/03/22 09:43 Dose: 12.5 mg Pharmacy Consult (Consult Rx Perform Med Rec) 1 each MISCELLANE ONCE PRN PRN Reason: Consult order Quetiapine Fumarate (Quetiapine Fumarate 300 Mg Tablet) 300 mg PO BEDTIME [facility] Last Admin: 01/02/22 21:14 Dose: 300 mg Sertraline HCl (Sertraline Hcl 50 Mg Tablet) 50 mg PO DAILY [facility] Last Admin: 01/03/22 09:57 Dose: 50 mg Trazodone HCl (Trazodone Hcl 50 Mg Tablet) 50 mg PO BEDTIME PRN PRN Reason: insomnia Last Admin: 01/01/22 22:21 Dose: 50 mg Allergies Allergies Allergy/AdvReac Type Severity Reaction Status Date / Time No Known Allergies Allergy Verified 10/27/21 12:12 Assessment & Plan Assessment & Plan (1) Psychotic disorder: Status: Acute Code(s): F29 - Unspecified psychosis not due to a substance or known physiological condition Assessment and Plan: changed diagnosis to psychotic disorder, with a rule out of schizoaffective disorder as collateral implies possible longer history of psychiatric illness that was subclinical (2) Anxiety: Status: Acute Code(s): F41.9 - Anxiety disorder, unspecified Plan Mrs. Wyman is a 51 year-old woman with hx of MDD with psychosis, admitted to on 10/2021 for similar presentation, new onset AH, depressed mood since 2020. Utox negative. She was brought via EMS on section 12 (unclear who called crisis) expressing suicidal ideation in context of feeling overwhelmed by command auditory hallucinations. Per discharge summary from Dr. Shiva Mars- pt was trialed on 3 antipsychotics that were not effective including risperidone, olanzapine, thorazine. She apparently responded to combination of sertraline, lithium and seroquel. Pt with some psychomotor retardation, internally preoccupied. Pt restarted on lithium, seroquel and sertraline in the ED setting. Head CT negative. -will change diagnosis to psychotic disorder, with a rule out of schizoaffective disorder as collateral implies possible longer history of psychiatric illness that was subclinical 12/31: Patient has improved some, calm behaviors, AH continues to be intrusive and bothersome 01/01: some modest improvement in both mood and AH which remain but are less intense than on admission; discussed with team and pt's sister that patient may need a VNA in order to remain adherent and safe in the community. 01/02 Mood, sleep a little better; continues with AH, though also a little better; since improving, will leave current med regimen as is; in review sees that patient was started on lisinopril for some reason while in the ED; discuss ed with outpatient provider who says she did not restart this medication and the last script she wrote was for last year. Given the fact that she is also on lithium, there are likely better choices for antihypertensives; will discontinue for now monitor BP 01/03 bp WNL; symptoms little better; AH remains but quieter Plan: Q15 min safety checks CV Discontinued Lisinopril given pt is on [place]; not sure why it was started; will monitor BP continue Ceftin 250mg BID for 7 days for UTI meds from last discharge re-started Switched to [place] ER 450mgmg daily (single daily dosing will help increase compliance; patient wanted in the morning since she forgets at bedtime) seroquel 300mg po qhs, sertraline 50mg po daily.? Head CT done and unremarkable Monitor response to medications. Monitor for safety in the milieu. Discharge on stabilization. Patient seen. Chart reviewed. Discussed with team. Obtain collateral contact info?as needed Head CT 12/30 CT/CT head/brain wo con IMPRESSION: Unremarkable exam. I spent minutes with the patient and/or on the patient floor today, greater than?50% of which was spent counseling/coordinating care. Patient educated on: medication risk/benefits Informed Consent: understands Reason for contiued inpatient stay Substantial Risk for: rapid decompensation
[2022-01-03 21:15] VITALS: BP 127/74; PULSE 91
[2022-01-03] MEDS: Docusate Sodium 100 MG CAPSULE 200 MG PO (21:29)
[2022-01-03] MEDS: QUEtiapine Fumarate 300 MG TABLET PO (21:30)
[2022-01-03] MEDS: Lithium Carbonate ER 450 MG TABLET.ER PO (21:30)
[2022-01-04] MEDS: LORazepam 1 MG TABLET PO (09:31)
[2022-01-04] MEDS: Metoprolol Tartrate 12.5 MG HALFTAB PO ×2 (09:32→21:02)
[2022-01-04] MEDS: Sertraline HCL 50 MG TABLET PO (09:32)
--- NOTE | 2022-01-04 17:26 | HO.PSYCHPN ---
Subjective Subjective Date of Service: 01/04/22 Reason For Visit: Depression with Psychotic Features Interim History: Patient reports feeling better. Still has auditory hallucinations but also they remain diminished. She does not want medication changes. She says she is sleeping well and no SI. Patient with noticeably brighter affect and in the milieu more often Mental Status Exam Mental Status Exam Narrative: Pt is alert and oriented; behavior is cooperative and calm; patient is not in distress; dressed in hospital gown with combed hair and adequate hygiene; mood is described fine and affect congruent, calm; eye contact appropriate; Speech is normal rate, volume and prosody and not pressured; no psychomotor agitation/retardation present; thought process is goal directed; Thought content is on dealing with AH that are commanding but getting less intense; otherwise pertinent to relevant topics and without any delusional/paranoid ideations or grandiosity; denies any SI/HI. Command AH remain; Patients insight and judgment is impaired but improved since admission. Diagnostics Vital Signs (24Hr): Vital Signs - 24 hr 01/03/22 21:15 Pulse Rate 91 Blood Pressure 127/74 BMI result Body Mass Index 30.6 Labs Results: 12/29/21 18:56 12/29/21 18:56 Imaging Radiology Impressions: ITS Impressions Head CT 12/30/21 14:01 IMPRESSION: Unremarkable exam. Medications Medications Current Medications Acetaminophen (Acetaminophen 325 Mg Tablet) 650 mg PO Q6H PRN PRN Reason: Headache/Pain Mild Scale (1-3) Al Hydroxide/Mg Hydroxide (Magnesium Hydrox/Alum Hydrox 30 Ml Oral.Susp) 30 ml PO Q6H PRN PRN Reason: Heartburn/Nausea Cefuroxime Axetil (Cefuroxime Axetil 250 Mg Tablet) 250 mg PO BID [facility] Stop: 01/07/22 11:00 Last Admin: 01/04/22 09:31 Dose: 250 mg Docusate Sodium (Docusate Sodium 100 Mg Capsule) 200 mg PO BEDTIME [facility] Last Admin: 01/03/22 21:29 Dose: 200 mg Hydroxyzine HCl (Hydroxyzine Hcl 25 Mg Tablet) 25 mg PO BEDTIME PRN PRN Reason: Anxiety [place] Carbonate ([place] Carbonate Er 450 Mg Tablet.Er) 450 mg PO BEDTIME [facility] Last Admin: 01/03/22 21:30 Dose: 450 mg Magnesium Hydroxide (Milk Of Magnesia 30 Ml Oral.Susp) 30 ml PO DAILY PRN PRN Reason: Constipation Metoprolol Tartrate (Metoprolol Tartrate 12.5 Mg Halftab) 12.5 mg PO BID [facility]; Protocol Last Admin: 01/04/22 09:32 Dose: 12.5 mg Pharmacy Consult (Consult Rx Perform Med Rec) 1 each MISCELLANE ONCE PRN PRN Reason: Consult order Quetiapine Fumarate (Quetiapine Fumarate 300 Mg Tablet) 300 mg PO BEDTIME [facility] Last Admin: 01/03/22 21:30 Dose: 300 mg Sertraline HCl (Sertraline Hcl 50 Mg Tablet) 50 mg PO DAILY [facility] Last Admin: 01/04/22 09:32 Dose: 50 mg Trazodone HCl (Trazodone Hcl 50 Mg Tablet) 50 mg PO BEDTIME PRN PRN Reason: insomnia Last Admin: 01/01/22 22:21 Dose: 50 mg Allergies Allergies Allergy/AdvReac Type Severity Reaction Status Date / Time No Known Allergies Allergy Verified 10/27/21 12:12 Assessment & Plan Assessment & Plan (1) Psychotic disorder: Status: Acute Code(s): F29 - Unspecified psychosis not due to a substance or known physiological condition Assessment and Plan: changed diagnosis to psychotic disorder, with a rule out of schizoaffective disorder as collateral implies possible longer history of psychiatric illness that was subclinical (2) Anxiety: Status: Acute Code(s): F41.9 - Anxiety disorder, unspecified Plan Mrs. Wyman is a 51 year-old woman with hx of MDD with psychosis, admitted to on 10/2021 for similar presentation, new onset AH, depressed mood since 2020. Utox negative. She was brought via EMS on section 12 (unclear who called crisis) expressing suicidal ideation in context of feeling overwhelmed by command auditory hallucinations. Per discharge summary from Dr. Shiva Mars- pt was trialed on 3 antipsychotics that were not effective including risperidone, olanzapine, thorazine. She apparently responded to combination of sertraline, lithium and seroquel. Pt with some psychomotor retardation, internally preoccupied. Pt restarted on lithium, seroquel and sertraline in the ED setting. Head CT negative. -will change diagnosis to psychotic disorder, with a rule out of schizoaffective disorder as collateral implies possible longer history of psychiatric illness that was subclinical 12/31: Patient has improved some, calm behaviors, AH continues to be intrusive and bothersome 01/01: some modest improvement in both mood and AH which remain but are less intense than on admission; discussed with team and pt's sister that patient may need a VNA in order to remain adherent and safe in the community. 01/02 Mood, sleep a little better; continues with AH, though also a little better; since improving, will leave current med regimen as is; in review sees that patient was started on lisinopril for some reason while in the ED; discussed with outpatient provider who says she did not restart this medication and the last script she wrote was for last year. Given the fact that she is also on lithium, there are likely better choices for antihypertensives; will discontinue for now monitor BP 01/04 continues to stabilize, better mood and diminished AH; no SI. Keep meds as they are Plan: Q15 min safety checks CV Discontinued Lisinopril given pt is on [place]; not sure why it was started; will monitor BP continue Ceftin 250mg BID for 7 days for UTI meds from last discharge re-started Switched to [place] ER 450mgmg daily (single daily dosing will help increase compliance; patient wanted in the morning since she forgets at bedtime) seroquel 300mg po qhs, sertraline 50mg po daily.? Head CT done and unremarkable Monitor response to medications. Monitor for safety in the milieu. Discharge on stabilization. Patient seen. Chart reviewed. Discussed with team. Obtain collateral contact info?as needed Head CT 12/30 CT/CT head/brain wo con IMPRESSION: Unremarkable exam. I spent minutes with the patient and/or on the patient floor today, greater than?50% of which was spent counseling/coordinating care. Patient educated on: diagnosis and medication risk/benefits Informed Consent: understands Reason for contiued inpatient stay Substantial Risk for: rapid decompensation
[2022-01-04 18:00] VITALS: BP 119/75; PULSE 110; RESP 16; TEMP 36.4; O2SAT 99
[2022-01-04 21:00] VITALS: BP 114/76; PULSE 97
[2022-01-04] MEDS: Docusate Sodium 100 MG CAPSULE 200 MG PO (21:02)
[2022-01-04] MEDS: QUEtiapine Fumarate 300 MG TABLET PO (21:02)
[2022-01-04] MEDS: Lithium Carbonate ER 450 MG TABLET.ER PO (21:02)
[2022-01-05] MEDS: Sertraline HCL 50 MG TABLET PO (08:39)
[2022-01-05] MEDS: Metoprolol Tartrate 12.5 MG HALFTAB PO ×2 (08:40→21:40)
[2022-01-05 08:43] VITALS: BP 107/69; PULSE 111; TEMP 36.6
--- NOTE | 2022-01-05 13:15 | P.PNPSI_ITS ---
Subjective Subjective Date of Service: 01/05/22 Reason For Visit: Depression with Psychotic Features Interim History: Late entry seen on 01/05 Patient reports she is doing much better and has brighter affect, smiling. AH remains but it is remaining low. She would consider adding another medication to see if she could eliminate voices but has some ambivalence. Otherwise no SI, sleeping well Mental Status Exam Mental Status Exam Narrative: Pt is alert and oriented; behavior is cooperative and calm; patient is not in distress; dressed in hospital gown with combed hair and adequate hygiene; mood is described better and affect congruent, brighter, calm; eye contact ap propriate; Speech is normal rate, volume and prosody and not pressured; no psychomotor agitation/retardation present; thought process is goal directed; Thought content is on dealing with AH that are commanding but much less intense; otherwise pertinent to relevant topics and without any delusional/ paranoid ideations or grandiosity; denies any SI/HI; Patients insight and judgment is impaired are fair Diagnostics Vital Signs (24Hr): Vital Signs - 24 hr 01/05/22 21:00 01/06/22 06:00 Temperature 98.9 F 98.2 F Pulse Rate 111 H 102 H Respiratory Rate 16 Blood Pressure 132/74 108/64 Pulse Oximetry 99 BMI result Body Mass Index 30.6 Labs Results: 12/29/21 18:56 12/29/21 18:56 Labs: Laboratory Results - last 48 hr 12/29/21 18:56 [place] TNP Imaging Radiology Impressions: ITS Impressions Head CT 12/30/21 14:01 IMPRESSION: Unremarkable exam. Medications Medications Current Medications Acetaminophen (Acetaminophen 325 Mg Tablet) 650 mg PO Q6H PRN PRN Reason: Headache/Pain Mild Scale (1-3) Al Hydroxide/Mg Hydroxide (Magnesium Hydrox/Alum Hydrox 30 Ml Oral.Susp) 30 ml PO Q6H PRN PRN Reason: Heartburn/Nausea Cefuroxime Axetil (Cefuroxime Axetil 250 Mg Tablet) 250 mg PO BID [facility] Stop: 01/07/22 11:00 Last Admin: 01/06/22 08:37 Dose: 250 mg Docusate Sodium (Docusate Sodium 100 Mg Capsule) 200 mg PO BEDTIME [facility] Last Admin: 01/05/22 21:40 Dose: 200 mg Hydroxyzine HCl (Hydroxyzine Hcl 25 Mg Tablet) 25 mg PO BEDTIME PRN PRN Reason: Anxiety [place] Carbonate ([place] Carbonate Er 450 Mg Tablet.Er) 450 mg PO BEDTIME [facility] Last Admin: 01/05/22 21:40 Dose: 450 mg Magnesium Hydroxide (Milk Of Magnesia 30 Ml Oral.Susp) 30 ml PO DAILY PRN PRN Reason: Constipation Metoprolol Tartrate (Metoprolol Tartrate 12.5 Mg Halftab) 12.5 mg PO BID [facility]; Protocol Last Admin: 01/06/22 08:37 Dose: 12.5 mg Pharmacy Consult (Consult Rx Perform Med Rec) 1 each MISCELLANE ONCE PRN PRN Reason: Consult order Quetiapine Fumarate (Quetiapine Fumarate 300 Mg Tablet) 300 mg PO BEDTIME [facility] Last Admin: 01/05/22 21:40 Dose: 300 mg Sertraline HCl (Sertraline Hcl 50 Mg Tablet) 50 mg PO DAILY [facility] Last Admin: 01/06/22 08:37 Dose: 50 mg Trazodone HCl (Trazodone Hcl 50 Mg Tablet) 50 mg PO BEDTIME PRN PRN Reason: insomnia Last Admin: 01/01/22 22:21 Dose: 50 mg Allergies Allergies Allergy/AdvReac Type Severity Reaction Status Date / Time No Known Allergies Allergy Verified 10/27/21 12:12 Assessment & Plan Assessment & Plan (1) Psychotic disorder: Status: Acute Code(s): F29 - Unspecified psychosis not due to a substance or known physiological condition Assessment and Plan: changed diagnosis to psychotic disorder, with a rule out of schizoaffective disorder as collateral implies possible longer history of psychiatric illness that was subclinical (2) Anxiety: Status: Acute Code(s): F41.9 - Anxiety disorder, unspecified Plan Mrs. Wyman is a 51 year-old woman with hx of MDD with psychosis, admitted to on 10/2021 for similar presentation, new onset AH, depressed mood since 2020. Utox negative. She was brought via EMS on section 12 (unclear who called crisis) expressing suicidal ideation in context of feeling overwhelmed by command auditory hallucinations. Per discharge summary from Dr. Shiva Mars- pt was trialed on 3 antipsychotics that were not effective including risperidone, olanzapine, thorazine. She apparently responded to combination of sertraline, lithium and seroquel. Pt with some psychomotor retardation, internally preoccupied. Pt restarted on lithium, seroquel and sertraline in the ED setting. Head CT negative. -will change diagnosis to psychotic disorder, with a rule out of schizoaffective disorder as collateral implies possible longer history of psychiatric illness that was subclinical 12/31: Patient has improved some, calm behaviors, AH continues to be intrusive and bothersome 01/01: some modest improvement in both mood and AH which remain but are less intense than on admission; discussed with team and pt's sister that patient may need a VNA in order to remain adherent and safe in the community. 01/02 Mood, sleep a little better; continues with AH, though also a little better; since improving, will leave current med regimen as is; in review sees that patient was started on lisinopril for some reason while in the ED; discuss ed with outpatient provider who says she did not restart this medication and the last script she wrote was for last year. Given the fact that she is also on lithium, there are likely better choices for antihypertensives; will discontinue for now monitor BP 01/04 continues to stabilize, better mood and diminished AH; no SI. Keep meds as they are 01/05 remains stable; will consider adding medication to deal with AH however patient ambivalent Plan: Q15 min safety checks CV Discontinued Lisinopril given pt is on [place]; not sure why it was started; will monitor BP continue Ceftin 250mg BID for 7 days for UTI meds from last discharge re-started Switched to [place] ER 450mgmg daily (single daily dosing will help increase compliance; patient wanted in the morning since she forgets at bedtime) seroquel 300mg po qhs, sertraline 50mg po daily.? Head CT done and unremarkable Monitor response to medications. Monitor for safety in the milieu. Discharge on stabilization. Patient seen. Chart reviewed. Discussed with team. Obtain collateral contact info?as needed Head CT 12/30 CT/CT head/brain wo con IMPRESSION: Unremarkable exam. I spent minutes with the patient and/or on the patient floor today, greater than?50% of which was spent counseling/coordinating care. Patient educated on: diagnosis and medication risk/benefits Informed Consent: understands Reason for contiued inpatient stay Substantial Risk for: stable for discharge
[2022-01-05 21:00] VITALS: BP 132/74; PULSE 111; TEMP 37.2
[2022-01-05] MEDS: Docusate Sodium 100 MG CAPSULE 200 MG PO (21:40)
[2022-01-05] MEDS: Lithium Carbonate ER 450 MG TABLET.ER PO (21:40)
[2022-01-05] MEDS: QUEtiapine Fumarate 300 MG TABLET PO (21:40)
[2022-01-06 06:00] VITALS: BP 108/64; PULSE 102; RESP 16; TEMP 36.8; O2SAT 99
[2022-01-06] MEDS: Metoprolol Tartrate 12.5 MG HALFTAB PO ×2 (08:37→20:42)
[2022-01-06] MEDS: Sertraline HCL 50 MG TABLET PO (08:37)
[2022-01-06 20:38] VITALS: BP 170/80; PULSE 92; RESP 18; TEMP 36.8; O2SAT 98
[2022-01-06] MEDS: Lithium Carbonate ER 450 MG TABLET.ER PO (21:26)
[2022-01-06] MEDS: Docusate Sodium 100 MG CAPSULE 200 MG PO (21:26)
[2022-01-06] MEDS: QUEtiapine Fumarate 300 MG TABLET PO (21:27)
[2022-01-06 21:31] VITALS: BP 148/80; PULSE 102; RESP 18
[2022-01-07] MEDS: Metoprolol Tartrate 12.5 MG HALFTAB PO ×2 (08:30→21:45)
[2022-01-07] MEDS: Sertraline HCL 50 MG TABLET PO (08:30)
[2022-01-07 09:38] VITALS: BP 116/76; PULSE 74; RESP 16; TEMP 36.7; O2SAT 98
--- NOTE | 2022-01-07 16:40 | HO.PSYCHPN ---
Subjective Subjective Date of Service: 01/07/22 Reason For Visit: Depression with Psychotic Features Interim History: Patient seen with full time staff interpreter Patient reports poor sleep last night possibly because her roommate was active. She says auditory hallucinations have significantly worsened today and her calling her name. Patient feels more depressed because of this. She agrees to increasing Seroquel dose and also adding some trazodone to help insure sleep. She agrees that if she goes home with problematic auditory hallucinations that things will not go well. Patient reports feeling safe. c/o upper respiratory symptoms; will order covid test Mental Status Exam Mental Status Exam Narrative: Pt is alert and oriented; behavior is cooperative and calm; patient is not in distress; dressed in casual cloths with combed hair and adequate hygiene; mood is described depressed and affect congruent, more anxious;eye contact appropriate; Speech is normal rate, volume and prosody and not pressured; no psychomotor agitation/retardation present; thought process is goal directed; Thought content is on dealing with AH; otherwise pertinent to relevant topics and without any delusional/paranoid ideations or grandiosity; denies any SI/HI; Patients insight and judgment is impaired are fair Diagnostics Vital Signs (24Hr): Vital Signs - 24 hr 01/06/22 20:38 01/06/22 21:31 01/07/22 09:38 Temperature 98.2 F 98.0 F Pulse Rate 92 102 H 74 Respiratory Rate 18 18 16 Blood Pressure 170/80 H 148/80 H 116/76 Pulse Oximetry 98 98 Oxygen Delivery Method Room Air Room Air BMI result Body Mass Index 30.6 Labs Results: 12/29/21 18:56 01/08/22 11:45 Labs: Laboratory Results - last 48 hr 12/29/21 18:56 [place] TNP Imaging Radiology Impressions: ITS Impressions Head CT 12/30/21 14:01 IMPRESSION: Unremarkable exam. Medications Medications Current Medications Acetaminophen (Acetaminophen 325 Mg Tablet) 650 mg PO Q6H PRN PRN Reason: Headache/Pain Mild Scale (1-3) Al Hydroxide/Mg Hydroxide (Magnesium Hydrox/Alum Hydrox 30 Ml Oral.Susp) 30 ml PO Q6H PRN PRN Reason: Heartburn/Nausea Docusate Sodium (Docusate Sodium 100 Mg Capsule) 200 mg PO BEDTIME [facility] Last Admin: 01/06/22 21:26 Dose: 200 mg Hydroxyzine HCl (Hydroxyzine Hcl 25 Mg Tablet) 25 mg PO BEDTIME PRN PRN Reason: Anxiety [place] Carbonate ([place] Carbonate Er 450 Mg Tablet.Er) 450 mg PO BEDTIME [facility] Last Admin: 01/06/22 21:26 Dose: 450 mg Magnesium Hydroxide (Milk Of Magnesia 30 Ml Oral.Susp) 30 ml PO DAILY PRN PRN Reason: Constipation Metoprolol Tartrate (Metoprolol Tartrate 12.5 Mg Halftab) 12.5 mg PO BID [facility]; Protocol Last Admin: 01/07/22 08:30 Dose: 12.5 mg Pharmacy Consult (Consult Rx Perform Med Rec) 1 each MISCELLANE ONCE PRN PRN Reason: Consult order Quetiapine Fumarate (Quetiapine Fumarate 300 Mg Tablet) 300 mg PO BEDTIME [facility] Last Admin: 01/06/22 21:27 Dose: 300 mg Sertraline HCl (Sertraline Hcl 50 Mg Tablet) 50 mg PO DAILY [facility] Last Admin: 01/07/22 08:30 Dose: 50 mg Trazodone HCl (Trazodone Hcl 50 Mg Tablet) 50 mg PO BEDTIME PRN PRN Reason: insomnia Last Admin: 01/01/22 22:21 Dose: 50 mg Allergies Allergies Allergy/AdvReac Type Severity Reaction Status Date / Time No Known Allergies Allergy Verified 10/27/21 12:12 Assessment & Plan Assessment & Plan (1) Psychotic disorder: Status: Acute Code(s): F29 - Unspecified psychosis not due to a substance or known physiological condition Assessment and Plan: changed diagnosis to psychotic disorder, with a rule out of schizoaffective disorder as collateral implies possible longer history of psychiatric illness that was subclinical (2) Anxiety: Status: Acute Code(s): F41.9 - Anxiety disorder, unspecified Plan Mrs. Wyman is a 51 year-old woman with hx of MDD with psychosis, admitted to on 10/2021 for similar presentation, new onset AH, depressed mood since 2020. Utox negative. She was brought via EMS on section 12 (unclear who called crisis) expressing suicidal ideation in context of feeling overwhelmed by command auditory hallucinations. Per discharge summary from Dr. Shiva Mars- pt was trialed on 3 antipsychotics that were not effective including risperidone, olanzapine, thorazine. She apparently responded to combination of sertraline, lithium and seroquel. Pt with some psychomotor retardation, internally preoccupied. Pt restarted on lithium, seroquel and sertraline in the ED setting. Head CT negative. -will change diagnosis to psychotic disorder, with a rule out of schizoaffective disorder as collateral implies possible longer history of psychiatric illness that was subclinical 12/31: Patient has improved some, calm behaviors, AH continues to be intrusive and bothersome 01/01: some modest improvement in both mood and AH which remain but are less intense than on admission; discussed with team and pt's sister that patient may need a VNA in order to remain adherent and safe in the community. 01/02 Mood, sleep a little better; continues with AH, though also a little better; since improving, will leave current med regimen as is; in review sees that patient was started on lisinopril for some reason while in the ED; discussed with outpatient provider who says she did not restart this medication and the last script she wrote was for last year. Given the fact that she is also on lithium, there are likely better choices for antihypertensives; will discontinue for now monitor BP 01/04 continues to stabilize, better mood and diminished AH; no SI. Keep meds as they are 01/05 remains stable; will consider adding medication to deal with AH however patient ambivalent 01/07 resurgence of AH, possibly due poor sleep, however they are problematic. Patient agrees to increase Seroquel dose and low-dose trazodone to help ensure sleep and help reduce AH. 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 Plan: Q15 min safety checks CV order labs for lithium level; other associated labs Covid test (c/o upper respiratory symptoms) Discontinued Lisinopril given pt is on [place]; not sure why it was started; BP remains wnl completed Ceftin 250mg BID for 7 days for UTI meds from last discharge re-started Switched to [place] ER 450mgmg daily (single daily dosing will help increase compliance; patient wanted in the morning since she forgets at bedtime) INCREASED TO seroquel 400mg po qhs, for continued AH START trazodone 25 mg q.h.s. for insomnia; will make prn on discharge if helpful sertraline 50mg po daily; not sure if this is helping. If patient remains stable and in a good mood as an outpatient this can possibly be tapered and discontinued to see whether or not necessary; however since patient is currently stabilizing will leave it as is Head CT done and unremarkable Monitor response to medications. Monitor for safety in the milieu. Discharge on stabilization. Patient seen. Chart reviewed. Discussed with team. Obtain collateral contact info?as needed Head CT 12/30 CT/CT head/brain wo con IMPRESSION: Unremarkable exam. I spent minutes with the patient and/or on the patient floor today, greater than?50% of which was spent counseling/coordinating care. Patient educated on: diagnosis and medication risk/benefits Informed Consent: understands Reason for contiued inpatient stay Substantial Risk for: rapid decompensation
[2022-01-07 20:28] LABS: COVID-19 Test Negative (Negative)
[2022-01-07 21:20] VITALS: BP 132/84; PULSE 96; TEMP 36.3
[2022-01-07] MEDS: Docusate Sodium 100 MG CAPSULE 200 MG PO (21:44)
[2022-01-07] MEDS: traZODone HCL 25 MG HALFTAB PO (21:45)
[2022-01-07] MEDS: Lithium Carbonate ER 450 MG TABLET.ER PO (21:45)
[2022-01-07] MEDS: QUEtiapine Fumarate 400 MG TABLET PO (21:45)
[2022-01-08] MEDS: Sertraline HCL 50 MG TABLET PO (08:43)
[2022-01-08] MEDS: Metoprolol Tartrate 12.5 MG HALFTAB PO ×2 (08:43→21:40)
[2022-01-08 08:44] VITALS: BP 97/72; PULSE 129; RESP 18; TEMP 36.4; O2SAT 98
[2022-01-08 12:08] LABS: Lithium 0.49 mmol/L (0.60-1.20)
[2022-01-08 12:10] LABS: Blood Urea Nitrogen 16 mg/dL (9-16); Creatinine Clr Calc Pharmacy 67.5; Estimated Glomerular Filt Rate > 60
[2022-01-08 12:31] LABS: TSH reflex Free T4 1.64 uIU/mL (0.32-4.0)
--- NOTE | 2022-01-08 12:42 | HO.PSYCHPN ---
Subjective Subjective Date of Service: 01/08/22 Reason For Visit: Depression with Psychotic Features Interim History: Mood is better; she reports sleeping well last night. Patient also reports that auditory hallucinations are almost inaudible. Mental Status Exam Mental Status Exam Narrative: Pt is alert and oriented; behavior is cooperative and calm; patient is not in distress; dressed in casual cloths with combed hair and adequate hygiene; mood is described better and affect congruent, more anxious;eye contact appropriate; Speech is normal rate, volume and prosody and not pressured; no psychomotor agitation/retardation present; thought process is goal directed; minimal AH; otherwise pertinent to relevant topics and without any delusional/paranoid ideations or grandiosity; denies any SI/HI; Patients insight and judgment is impaired are fair Diagnostics Vital Signs (24Hr): Vital Signs - 24 hr 01/07/22 21:20 01/08/22 08:44 Temperature 97.4 F 97.6 F Pulse Rate 96 129 H Respiratory Rate 18 Blood Pressure 132/84 97/72 Pulse Oximetry 98 Oxygen Delivery Method Room Air BMI result Body Mass Index 30.6 Labs Results: 12/29/21 18:56 01/08/22 11:45 Labs: Laboratory Results - last 48 hr 01/07/22 01/08/22 01/08/22 20:03 11:45 11:45 BUN 16 Creatinine 0.85 Estim Creat Clear Calc 67.5 Estimated GFR > 60 TSH 1.64 [place] 0.49 L COVID-19 ([facility]) Negative COVID-19 Clin Com See Note Imaging Radiology Impressions: ITS Impressions Head CT 12/30/21 14:01 IMPRESSION: Unremarkable exam. Medications Medications Current Medications Acetaminophen (Acetaminophen 325 Mg Tablet) 650 mg PO Q6H PRN PRN Reason: Headache/Pain Mild Scale (1-3) Al Hydroxide/Mg Hydroxide (Magnesium Hydrox/Alum Hydrox 30 Ml Oral.Susp) 30 ml PO Q6H PRN PRN Reason: Heartburn/Nausea Benzocaine (Throat Lozenge, Medicated Lozenge) 1 lozenge MUCOUS MEM Q1H PRN PRN Reason: Sore Throat Docusate Sodium (Docusate Sodium 100 Mg Capsule) 200 mg PO BEDTIME [facility] Last Admin: 01/07/22 21:44 Dose: 200 mg Hydroxyzine HCl (Hydroxyzine Hcl 25 Mg Tablet) 25 mg PO BEDTIME PRN PRN Reason: Anxiety [place] Carbonate ([place] Carbonate Er 450 Mg Tablet.Er) 450 mg PO BEDTIME [facility] Last Admin: 01/07/22 21:45 Dose: 450 mg Magnesium Hydroxide (Milk Of Magnesia 30 Ml Oral.Susp) 30 ml PO DAILY PRN PRN Reason: Constipation Metoprolol Tartrate (Metoprolol Tartrate 12.5 Mg Halftab) 12.5 mg PO BID [facility]; Protocol Last Admin: 01/08/22 08:43 Dose: 12.5 mg Pharmacy Consult (Consult Rx Perform Med Rec) 1 each MISCELLANE ONCE PRN PRN Reason: Consult order Pseudoephedrine HCl (Pseudoephedrine Hcl 30 Mg Tablet) 30 mg PO Q4H PRN PRN Reason: congetstion Stop: 01/10/22 23:00 Quetiapine Fumarate (Quetiapine Fumarate 400 Mg Tablet) 400 mg PO BEDTIME [facility] Last Admin: 01/07/22 21:45 Dose: 400 mg Sertraline HCl (Sertraline Hcl 50 Mg Tablet) 50 mg PO DAILY [facility] Last Admin: 01/08/22 08:43 Dose: 50 mg Trazodone HCl (Trazodone Hcl 50 Mg Tablet) 50 mg PO BEDTIME PRN PRN Reason: insomnia Last Admin: 01/01/22 22:21 Dose: 50 mg Trazodone HCl (Trazodone Hcl 25 Mg Halftab) 25 mg PO BEDTIME [facility] Last Admin: 01/07/22 21:45 Dose: 25 mg Allergies Allergies Allergy/AdvReac Type Severity Reaction Status Date / Time No Known Allergies Allergy Verified 10/27/21 12:12 Assessment & Plan Assessment & Plan (1) Psychotic disorder: Status: Acute Code(s): F29 - Unspecified psychosis not due to a substance or known physiological condition Assessment and Plan: changed diagnosis to psychotic disorder, with a rule out of schizoaffective disorder as collateral implies possible longer history of psychiatric illness that was subclinical (2) Anxiety: Status: Acute Code(s): F41.9 - Anxiety disorder, unspecified Plan Mrs. Wyman is a 51 year-old woman with hx of MDD with psychosis, admitted to on 10/2021 for similar presentation, new onset AH, depressed mood since 2020. Utox negative. She was brought via EMS on section 12 (unclear who called crisis) expressing suicidal ideation in context of feeling overwhelmed by command auditory hallucinations. Per discharge summary from Dr. Shiva Mars- pt was trialed on 3 antipsychotics that were not effective including risperidone, olanzapine, thorazine. She apparently responded to combination of sertraline, lithium and seroquel. Pt with some psychomotor retardation, internally preoccupied. Pt restarted on lithium, seroquel and sertraline in the ED setting. Head CT negative. -will change diagnosis to psychotic disorder, with a rule out of schizoaffective disorder as collateral implies possible longer history of psychiatric illness that was subclinical 12/31: Patient has improved some, calm behaviors, AH continues to be intrusive and bothersome 01/01: some modest improvement in both mood and AH which remain but are less intense than on admission; discussed with team and pt's sister that patient may need a VNA in order to remain adherent and safe in the community. 01/02 Mood, sleep a little better; continues with AH, though also a little better; since improving, will leave current med regimen as is; in review sees that patient was started on lisinopril for some reason while in the ED; discussed with outpatient provider who says she did not restart this medication and the last script she wrote was for last year. Given the fact that she is also on lithium, there are likely better choices for antihypertensives; will discontinue for now monitor BP 01/04 continues to stabilize, better mood and diminished AH; no SI. Keep meds as they are 01/05 remains stable; will consider adding medication to deal with AH however patient ambivalent 01/07 resurgence of AH, possibly due poor sleep, however they are problematic. Patient agrees to increase Seroquel dose and low-dose trazodone to help ensure sleep and help reduce AH. It is customs entry writer strong opinion that if auditory hallucinations are not under better control, she will quickly decompensate and return to the hospital. 01/08 patient feeling much better having slept well last night. She says auditory hallucinations are almost inaudible. Good mood. Patient will remain another day to ensure that auditory hallucinations remain tolerable; otherwise will plan for discharge home; social work working on VNA Plan: Q15 min safety checks CV Covid test (c/o upper respiratory symptoms) Bun/cr WNL; lithium level subtherapeutic however patient is stable on this dose Discontinued Lisinopril given pt is on [place]; not sure why it was started; BP remains wnl completed Ceftin 250mg BID for 7 days for UTI meds from last discharge re-started Switched to [place] ER 450mgmg daily (single daily dosing will help increase compliance; patient wanted in the morning since she forgets at bedtime) INCREASED TO seroquel 400mg po qhs, for continued AH START trazodone 25 mg q.h.s. for insomnia; will make prn on discharge if helpful sertraline 50mg po daily; not sure if this is helping. If patient remains stable and in a good mood as an outpatient this can possibly be tapered and discontinued to see whether or not necessary; however since patient is currently stabilizing will leave it as is Head CT done and unremarkable Monitor response to medications. Monitor for safety in the milieu. Discharge on stabilization. Patient seen. Chart reviewed. Discussed with team. Obtain collateral contact info?as needed Head CT 12/30 CT/CT head/brain wo con IMPRESSION: Unremarkable exam. I spent minutes with the patient and/or on the patient floor today, greater than?50% of which was spent counseling/coordinating care. Patient educated on: medication risk/benefits Informed Consent: understands Reason for contiued inpatient stay Substantial Risk for: stable for discharge
[2022-01-08] MEDS: Pseudoephedrine HCL 30 MG TABLET PO (13:28)
[2022-01-08] MEDS: Throat Lozenge, Medicated LOZENGE 1 LOZENGE MUCOUS MEM (13:28)
[2022-01-08] MEDS: Docusate Sodium 100 MG CAPSULE 200 MG PO (21:39)
[2022-01-08] MEDS: traZODone HCL 25 MG HALFTAB PO (21:40)
[2022-01-08] MEDS: QUEtiapine Fumarate 400 MG TABLET PO (21:40)
[2022-01-08] MEDS: Lithium Carbonate ER 450 MG TABLET.ER PO (21:40)
[2022-01-08 21:45] VITALS: BP 121/72; PULSE 89; TEMP 36.2; O2SAT 98
[2022-01-09] MEDS: Metoprolol Tartrate 12.5 MG HALFTAB PO ×2 (09:38→21:12)
[2022-01-09] MEDS: Sertraline HCL 50 MG TABLET PO (09:38)
[2022-01-09 09:40] VITALS: BMI 31.4
[2022-01-09 09:41] VITALS: BP 102/72; PULSE 126; RESP 18; TEMP 36.8; O2SAT 99
--- NOTE | 2022-01-09 17:40 | HO.PSYCHPN ---
Subjective Subjective Date of Service: 01/09/22 Reason For Visit: Depression with Psychotic Features Interim History: Patient reports that she continues to be in a good mood and is doing well. She slept well last night. She says voices are very minimal and mostly inaudible and not bothersome. No SI. She feels ready to go home and is looking forward to discharging tomorrow. Tolerating medications well. Patient expresses thanks for treatment received. Patient's affect is noticeably brighter and she is out and about in the milieu, socializing with peers. She is future oriented and preparing to return to work. Mental Status Exam Mental Status Exam Narrative: Pt is alert and oriented; behavior is cooperative and calm; patient is not in distress; dressed in casual cloths with combed hair and adequate hygiene; mood is described good and affect congruent, brighter, relaxed; eye contact appropriate; Speech is normal rate, volume and prosody and not pressured; no psychomotor agitation/retardation present; thought process is goal directed; minimal AH; otherwise pertinent to relevant topics and without any delusional/paranoid ideations or grandiosity; denies any SI/HI; Patients insight and judgment are fair and adequate. Diagnostics Vital Signs (24Hr): Vital Signs - 24 hr 01/08/22 21:45 01/09/22 09:41 Temperature 97.2 F 98.2 F Pulse Rate 89 126 H Respiratory Rate 18 Blood Pressure 121/72 102/72 Pulse Oximetry 98 99 Oxygen Delivery Method Room Air Room Air BMI result Body Mass Index 31.4 Labs Results: 12/29/21 18:56 01/08/22 11:45 Labs: Laboratory Results - last 48 hr 01/07/22 01/08/22 01/08/22 20:03 11:45 11:45 BUN 16 Creatinine 0.85 Estim Creat Clear Calc 67.5 Estimated GFR > 60 TSH 1.64 [place] 0.49 L COVID-19 ([facility]) Negative COVID-19 Clin Com See Note Imaging Radiology Impressions: ITS Impressions Head CT 12/30/21 14:01 IMPRESSION: Unremarkable exam. Medications Medications Current Medications Acetaminophen (Acetaminophen 325 Mg Tablet) 650 mg PO Q6H PRN PRN Reason: Headache/Pain Mild Scale (1-3) Al Hydroxide/Mg Hydroxide (Magnesium Hydrox/Alum Hydrox 30 Ml Oral.Susp) 30 ml PO Q6H PRN PRN Reason: Heartburn/Nausea Benzocaine (Throat Lozenge, Medicated Lozenge) 1 lozenge MUCOUS MEM Q1H PRN PRN Reason: Sore Throat Docusate Sodium (Docusate Sodium 100 Mg Capsule) 200 mg PO BEDTIME [facility] Last Admin: 01/08/22 21:39 Dose: 200 mg Hydroxyzine HCl (Hydroxyzine Hcl 25 Mg Tablet) 25 mg PO BEDTIME PRN PRN Reason: Anxiety [place] Carbonate ([place] Carbonate Er 450 Mg Tablet.Er) 450 mg PO BEDTIME [facility] Last Admin: 01/08/22 21:40 Dose: 450 mg Magnesium Hydroxide (Milk Of Magnesia 30 Ml Oral.Susp) 30 ml PO DAILY PRN PRN Reason: Constipation Metoprolol Tartrate (Metoprolol Tartrate 12.5 Mg Halftab) 12.5 mg PO BID [facility]; Protocol Last Admin: 01/09/22 09:38 Dose: 12.5 mg Pharmacy Consult (Consult Rx Perform Med Rec) 1 each MISCELLANE ONCE PRN PRN Reason: Consult order Pseudoephedrine HCl (Pseudoephedrine Hcl 30 Mg Tablet) 30 mg PO Q4H PRN PRN Reason: congetstion Stop: 01/10/22 23:00 Last Admin: 01/08/22 13:28 Dose: 30 mg Quetiapine Fumarate (Quetiapine Fumarate 400 Mg Tablet) 400 mg PO BEDTIME [facility] Last Admin: 01/08/22 21:40 Dose: 400 mg Sertraline HCl (Sertraline Hcl 50 Mg Tablet) 50 mg PO DAILY [facility] Last Admin: 01/09/22 09:38 Dose: 50 mg Trazodone HCl (Trazodone Hcl 50 Mg Tablet) 50 mg PO BEDTIME PRN PRN Reason: insomnia Last Admin: 01/01/22 22:21 Dose: 50 mg Trazodone HCl (Trazodone Hcl 25 Mg Halftab) 25 mg PO BEDTIME [facility] Last Admin: 01/08/22 21:40 Dose: 25 mg Allergies Allergies Allergy/AdvReac Type Severity Reaction Status Date / Time No Known Allergies Allergy Verified 10/27/21 12:12 Assessment & Plan Assessment & Plan (1) Psychotic disorder: Status: Acute Code(s): F29 - Unspecified psychosis not due to a substance or known physiological condition Assessment and Plan: changed diagnosis to psychotic disorder, with a rule out of schizoaffective disorder as collateral implies possible longer history of psychiatric illness that was subclinical (2) Anxiety: Status: Acute Code(s): F41.9 - Anxiety disorder, unspecified Plan Mrs. Wyman is a 51 year-old woman with hx of MDD with psychosis, admitted to on 10/2021 for similar presentation, new onset AH, depressed mood since 2020. Utox negative. She was brought via EMS on section 12 (unclear who called crisis) expressing suicidal ideation in context of feeling overwhelmed by command auditory hallucinations. Per discharge summary from Dr. Shiva Mars- pt was trialed on 3 antipsychotics that were not effective including risperidone, olanzapine, thorazine. She apparently responded to combination of sertraline, lithium and seroquel. Pt with some psychomotor retardation, internally preoccupied. Pt restarted on lithium, seroquel and sertraline in the ED setting. Head CT negative. -will change diagnosis to psychotic disorder, with a rule out of schizoaffective disorder as collateral implies possible longer history of psychiatric illness that was subclinical 12/31: Patient has improved some, calm behaviors, AH continues to be intrusive and bothersome 01/01: some modest improvement in both mood and AH which remain but are less intense than on admission; discussed with team and pt's sister that patient may need a VNA in order to remain adherent and safe in the community. 01/02 Mood, sleep a little better; continues with AH, though also a little better; since improving, will leave current med regimen as is; in review sees that patient was started on lisinopril for some reason while in the ED; discussed with outpatient provider who says she did not restart this medication and the last script she wrote was for last year. Given the fact that she is also on lithium, there are likely better choices for antihypertensives; will discontinue for now monitor BP 01/04 continues to stabilize, better mood and diminished AH; no SI. Keep meds as they are 01/05 remains stable; will consider adding medication to deal with AH however patient ambivalent 01/07 resurgence of AH, possibly due poor sleep, however they are problematic. Patient agrees to increase Seroquel dose and low-dose trazodone to help ensure sleep and help reduce AH. It is documentation writer strong opinion that if auditory hallucinations are not under better control, she will quickly decompensate and return to the hospital. 01/08 patient feeling much better having slept well last night. She says auditory hallucinations are almost inaudible. Good mood. Patient will remain another day to ensure that auditory hallucinations remain tolerable; otherwise will plan for discharge home; social work working on VNA 01/09 patient remains in good mood, stable, sleeping well and with only very minimal AH. She feels ready to go home is looking forward to discharging tomorrow. No SI. Patient is future oriented and planning to return to work. She will also have a VNA set up to help her remain adherent with medications. Patient is not in imminent risk for harm to self or others, is tolerating her medications well and has support in the community. She is appropriate to continue treatment in the community with outpatient providers. Her Her request for discharge honored. Plan: Q15 min safety checks CV Covid test (c/o upper respiratory symptoms) Bun/cr WNL; lithium level subtherapeutic however patient is stable on this dose Discontinued Lisinopril given pt is on [place]; not sure why it was started; BP remains wnl completed Ceftin 250mg BID for 7 days for UTI meds from last discharge re-started Switched to [place] ER 450mgmg daily (single daily dosing will help increase compliance; patient wanted in the morning since she forgets at bedtime) INCREASED TO seroquel 400mg po qhs, for continued AH START trazodone 25 mg q.h.s. for insomnia; will make prn on discharge if helpful sertraline 50mg po daily; not sure if this is helping. If patient remains stable and in a good mood as an outpatient this can possibly be tapered and discontinued to see whether or not necessary; however since patient is currently stabilizing will leave it as is Head CT done and unremarkable Monitor response to medications. Monitor for safety in the milieu. Discharge on stabilization. Patient seen. Chart reviewed. Discussed with team. Obtain collateral contact info?as needed Head CT 12/30 CT/CT head/brain wo con IMPRESSION: Unremarkable exam. I spent minutes with the patient and/or on the patient floor today, greater than?50% of which was spent counseling/coordinating care. Patient educated on: medication risk/benefits Informed Consent: understands Reason for contiued inpatient stay Substantial Risk for: stable for discharge
--- NOTE | 2022-01-09 17:46 | PM.PSYDC ---
DS: Providers Provider Date of Service: 01/10/22 Date of admission: 12/30/21 16:31 Date of discharge: 01/10/22 Primary care physician: Unknown Physician Admitting clinician: Yuliya Gutierrez Attending physician on discharge: Shiva Mars DS: Diagnosis Discharge Diagnosis (1) Psychotic disorder: Status: Acute (2) Anxiety: Status: Acute DS: Medications Discharge Medications Home Medications: Home Medications Medication Instructions Recorded Confirmed quetiapine 200 mg tablet 400 mg PO BEDTIME 12/29/21 12/29/21 trazodone 50 mg tablet 25 mg PO BEDTIME PRN insomnia 12/29/21 12/29/21 Previous Rx's Medication Instructions Recorded lithium carbonate 450 mg 450 mg PO BEDTIME 30 days #30 tabs 11/14/21 tablet,extended release metoprolol tartrate 25 mg tablet 12.5 mg PO BID 30 days #30 tabs 11/14/21 sertraline 50 mg tablet 50 mg PO DAILY 30 days #30 tabs 11/14/21 Mental Status Exam Mental Status Exam Narrative: Pt is alert and oriented; behavior is cooperative and calm; patient is not in distress; dressed in casual cloths with combed hair and adequate hygiene; mood is described good and affect congruent, brighter, relaxed; eye contact appropriate; Speech is normal rate, volume and prosody and not pressured; no psychomotor agitation/retardation present; thought process is goal directed; minimal AH; otherwise pertinent to relevant topics and without any delusional/paranoid ideations or grandiosity; denies any SI/HI; Patients insight and judgment are fair and adequate. Data Data Completed and Pending Completed studies during hospitalization [Text1]: 12/29/21 01/07/22 01/08/22 18:56 20:03 11:45 BUN 16 Creatinine 0.85 Estim Creat Clear Calc 67.5 Estimated GFR > 60 TSH 1.64 [place] T[facility] COVID-19 ([facility]) Negative COVID-19 Clin Com See Note 01/08/22 11:45 BUN Creatinine Estim Creat Clear Calc Estimated GFR TSH [place] 0.49 L COVID-19 ([facility]) COVID-19 Clin Com 12/29/21 22:13 Urine clean catch - Urine tavera top Urine Culture - Final Imaging Diagnostic Imaging Impressions Head CT 12/30/21 14:01 IMPRESSION: Unremarkable exam. DS: Summary Hospital Course Hospital Course: Mrs. Wyman is a 51 year-old woman with hx of MDD with psychosis, admitted to on 10/2021 for similar presentation, new onset AH, depressed mood since 2020. Utox negative. She was brought via EMS on section 12 (unclear who called crisis) expressing suicidal ideation in context of feeling overwhelmed by command auditory hallucinations. Per discharge summary from Dr. Shiva Mars- pt was trialed on 3 antipsychotics that were not effective including risperidone, olanzapine, thorazine. She apparently responded to combination of sertraline, lithium and seroquel. Pt with some psychomotor retardation, internally preoccupied. Pt restarted on lithium, seroquel and sertraline in the ED setting. Head CT negative. -will change diagnosis to psychotic disorder, with a rule out of schizoaffective disorder as collateral implies possible longer history of psychiatric illness that was subclinical Difficult diagnosis. Decided to provisionally diagnosed patient with schizoaffective disorder bipolar type. Oddly, patient reports that she has never had auditory hallucinations or other psychotic symptoms in her life until this past year when her . Initially this seemed to fit with MDD with psychotic features; however, patient reports auditory hallucinations, though only minimally present, even when she is in a good mood. Patient is somewhat of a limited historian and it is possible that she is unintentionally, under-reporting her history of symptoms. At this moment, she meets criteria for schizoaffective disorder so will make this a provisional diagnosis. 12/31: Patient has improved some, calm behaviors, AH continues to be intrusive and bothersome 01/01: some modest improvement in both mood and AH which remain but are less intense than on admission; discussed with team and pt's sister that patient may need a VNA in order to remain adherent and safe in the community. 01/02 Mood, sleep a little better; continues with AH, though also a little better; since improving, will leave current med regimen as is; in review sees that patient was started on lisinopril for some reason while in the ED; discussed with outpatient provider who says she did not restart this medication and the last script she wrote was for last year. Given the fact that she is also on lithium, there are likely better choices for antihypertensives; will discontinue for now monitor BP 01/04 continues to stabilize, better mood and diminished AH; no SI. Keep meds as they are 01/05 remains stable; will consider adding medication to deal with AH however patient ambivalent 01/07 resurgence of AH, possibly due poor sleep, however they are problematic. Patient agrees to increase Seroquel dose and low-dose trazodone to help ensure sleep and help reduce AH. 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 01/08 patient feeling much better having slept well last night. She says auditory hallucinations are almost inaudible. Good mood. Patient will remain another day to ensure that auditory hallucinations remain tolerable; otherwise will plan for discharge home; social work working on VNA 01/09 patient remains in good mood, stable, sleeping well and with only very minimal AH. She feels ready to go home is looking forward to discharging tomorrow. No SI. Patient is future oriented and planning to return to work. She will also have a VNA set up to help her remain adherent with medications. Patient is not in imminent risk for harm to self or others, is tolerating her medications well and has support in the community. She is appropriate to continue treatment in the community with outpatient providers. Her Her request for discharge honored. Medications: Switched to [place] [facility] 450mgmg daily (single daily dosing will help increase compliance; patient wanted in the morning since she forgets at bedtime) INCREASED TO seroquel 400mg po qhs, for continued AH START trazodone 25 mg q.h.s. for insomnia; will make prn on discharge if helpful sertraline 50mg po daily; not sure if this is helping. If patient remains stable and in a good mood as an outpatient this can possibly be tapered and discontinued to see whether or not necessary; however since patient is currently stabilizing will leave it as is Time spent discussing smoking cessation with patient: 3 to 10 minutes Status at Discharge Functional status at discharge: independent ambulation Overall status at discharge: patient is back to baseline Time Spent with Patient Time attestation: Total time spent providing and/or coordinating discharge services: Time spent: Less than 30 minutes Discharge Plan Discharge Patient Disposition: Home, Self-Care Discharge Diagnosis: Schizoaffective disorder, bipolar type (provisional) Referrals: Gaston Adler Visiting RN [Other] - 01/13/22 (fax- [phone] The Visiting Nurses will assist with medication starting 01/13/22. They will call to set up a time for the first visit. ) Therapy: Doris Raymundo ([facility]) [Other] - 01/13/22 10:00 am (*En persona en la oficina* ) Psych Prescriber: Camila Roger ([facility]) [Other] - 02/04/22 9:00 am (Telehealth ) Psych Prescriber: Camila Roger ([facility]) [Other] - 03/03/22 10:40 am (Telehealth ) Juana Cottrell [Nurse Practitioner] - 01/16/22 10:45 am Discharge Medications: Continued lithium carbonate 450 mg tablet extended release 450 mg PO BEDTIME 30 Days Qty: 30 0RF sertraline 50 mg Tablet 50 mg PO DAILY 30 Days Qty: 30 0RF metoprolol tartrate 25 mg tablet 12.5 mg PO BID 30 Days Qty: 30 0RF Changed trazodone 50 mg tablet 25 mg PO BEDTIME PRN (Reason: insomnia) 30 Days Qty: 15 0RF quetiapine 400 mg tablet 400 mg PO BEDTIME 30 Days Qty: 30 0RF Discharge Orders: Discharge Order (Routine); Ordered 01/10/22 Ordered By: Shiva Mars Diet: regular diet Activity on Discharge: As tolerated Stand Alone Forms: Patient Portal Discharge page, Community Support Care Plan Goals: Maintain mood and safe behaviors Take medications as prescribed Practice coping skills Continue with outpatient providers and reach out to them as needed Health Concerns: Mood stability and behaviors HTN Plan of Treatment: Follow up with your PCP, psychiatric provider and other outpatient providers regarding above concerns Take medications as prescribed Assessment: Risk assessment at time of discharge:? Patient was interviewed prior to discharge and found to be fully oriented and without any SI or HI. Patient has insight and demonstrates good judgment in terms of wanting to pursue treatment. Patient is not in imminent risk of harm to self or others and has a safety plan that includes presenting to the closest ER or calling 911 if feeling unsafe.? Patient has been observed closely by nursing and unit staff throughout admission; patient has not engaged in any behaviors that suggest dangerousness to self or others and has demonstrated appropriate behaviors and impulse control Discharge Date/Time: 01/10/22 14:04
[2022-01-09] MEDS: Docusate Sodium 100 MG CAPSULE 200 MG PO (21:12)
[2022-01-09] MEDS: Lithium Carbonate ER 450 MG TABLET.ER PO (21:12)
[2022-01-09] MEDS: traZODone HCL 25 MG HALFTAB PO (21:12)
[2022-01-09] MEDS: QUEtiapine Fumarate 400 MG TABLET PO (21:12)
[2022-01-09 21:19] VITALS: BP 124/80; PULSE 101
[2022-01-10] MEDS: Metoprolol Tartrate 12.5 MG HALFTAB PO (09:22)
[2022-01-10] MEDS: Sertraline HCL 50 MG TABLET PO (09:22)
[2022-01-10 09:27] VITALS: BP 119/60; PULSE 106; RESP 18; TEMP 36.8; O2SAT 98
== END 2022-01-10 14:04 | disposition home or self-care (01) | DRG 750 ==
LOC: HO.ED 12-30 07:47 → HO.PM5 12-30 16:36
PROVIDERS: Clinical Nurse Specialist Psychiatric/Mental Health, Adult; Nurse Practitioner Family; Social Worker; Admitting Provider Psychiatry & Neurology Psychiatry; Emergency Provider Emergency Medicine; Visit Provider Psychiatry & Neurology Psychiatry
DX: F25.0 Schizoaffective disorder, bipolar type (principal); R45.851 Suicidal ideations; F41.9 Anxiety disorder, unspecified; Z20.822 Contact with and (suspected) exposure to COVID-19; Z79.899 Other long term (current) drug therapy
CPT/HCPCS: 36415; 70450; 80053; 80061; 80178; 80307; 81001; 81025; 82077; 82565; 84443; 84520; 85025; 85652; 86038; 86039; 87086; 87635; 93005; 99285

== ENCOUNTER 2022-06-19 06:28 | Inpatient (IN) | payer MEDICAID, SELFPAY ==
[2022-06-19 06:43] VITALS: BP 128/80; BP 155/95; PULSE 110; PULSE 118; RESP 16; TEMP 36.8; O2SAT 95; O2SAT 96; BMI 25.7
[2022-06-19 07:10] VITALS: BP 145/83; PULSE 93; RESP 16; O2SAT 95
[2022-06-19 10:00] VITALS: BP 165/97; PULSE 104; RESP 15; TEMP 37.3; O2SAT 96
--- NOTE | 2022-06-19 11:39 | ED_ITS ---
HPI - Psych General Chief Complaint: Psychiatric Symptoms Stated Complaint: AMS/ EMOTIONAL DISTRESS Time Seen by Provider: 06/19/22 07:17 History of Present Illness HPI Narrative: 51-year-old female with a past medical history of anxiety and depression presents to the emergency department today with depression. Patient states that this has been going on for several weeks, it has worsened recently. There are no exacerbating issues. The patient does state that she has thought about suicide recently, but is not homicidal. She does not have a plan. There are no other physical or mental complaints at this time MD complaint: suicidal ideation and feels depressed Onset (ago): week(s) Duration: constant and getting worse Relieving factors: none Exacerbating factors: none Related Data Previous Rx's Medication Instructions Recorded lithium carbonate 450 mg 450 mg PO BEDTIME 30 days #30 tabs 01/09/22 tablet,extended release metoprolol tartrate 25 mg tablet 12.5 mg PO BID 30 days #30 tabs 01/09/22 quetiapine 400 mg tablet 400 mg PO BEDTIME 30 days #30 tabs 01/09/22 sertraline 50 mg tablet 50 mg PO DAILY 30 days #30 tabs 01/09/22 trazodone 50 mg tablet 25 mg PO BEDTIME PRN insomnia 30 01/09/22 days #15 tabs Allergies Allergy/AdvReac Type Severity Reaction Status Date / Time No Known Allergies Allergy Verified 10/27/21 12:12 Review of Systems Constitutional: Constitutional: Denies chills and Denies fever(s) Eyes: Eyes: Denies blurry vision and Denies change in vision ENT: Reports system reviewed and no additional complaints, except as documented, Denies vertigo and Denies dizziness Cardiovascular: Cardiovascular: Reports no additional cardiovascular complaints and Denies syncope Respiratory: Respiratory: Denies cough and Denies wheezing Neurologic: Denies vertigo, Denies dizziness and Denies syncope Psychiatric: Psychiatric: Reports anxiety, Reports change in appetite and Reports suicidal ideation Allergic/Immunologic: Allergic/Immunologic: Denies wheezing PMFSH Past Medical History Attestation statement: The following information was validated with the patient. Medical History Anxiety Social History Social History Household Members: Other Household Members Other:: Mother Housing: House Do you presently have visiting nurse or other home services: No Alcohol intake: current Alcohol intake frequency: a few times a week Alcohol type: hard liquor Patient Tobacco Use Status: Never used Tobacco Smoked in Last 30 Days: No e-Cigarette/Vaping Use: Never Used Use of substances other than those prescribed or required for medical reasons: No Advance Directives: No Advance Directives Information Provided: No service: No Sexual orientation: Straight/Heterosexual Physical Exam Vital Signs: Vital Signs: Last Vital Signs Temp 99.1 F 06/19/22 10:00 Pulse 104 H 06/19/22 10:00 Resp 15 06/19/22 10:00 BP 165/97 H 06/19/22 10:00 Pulse Ox 96 06/19/22 10:00 O2 Del Method 06/19/22 10:00 BMI result Body Mass Index 25.7 Vital signs as noted. Slight tachycardia, mild hypertension Const: General: cooperative, healthy appearing, comfortable and no acute distress Orientation/consciousness: patient oriented x3 HEENT: Head: Yes normal to inspection, Yes normocephalic and Yes atraumatic Ears: external ears normal General nose exam: Normal external nose present Face and sinus: Yes normal facial exam Eyes: Eyelids: Yes eyelids normal Conjunctivae: conjunctivae normal Pupils: Equal, round and reactive pupils present EOM: EOMs intact bilaterally Neck: Neck: Yes normal visual inspection and Yes full ROM Resp: Effort & Inspection: normal respiratory effort and no cough Skin: General skin exam: no jaundice and no pallor Neuro: General: patient oriented x3 and CN's II-XI intact bilaterally Cranial nerves: Yes Equal, round and reactive pupils present Psych: Appearance: grossly normal and well kempt Mental Status: mental status grossly normal Speech and movement: Normal speech and movement present Affect: Indifferent affect present Attitude: cooperative Thought content: Suicidality present MDM - Psych MDM Narrative Medical decision making narrative: 51-year-old female with past medical history of anxiety and depression presents with same along with suicidality. Currently, the patient is medically stable for psychiatric evaluation. Discharge Plan Discharge Prescriptions: No Action trazodone 50 mg tablet 25 mg PO BEDTIME PRN (Reason: insomnia) 30 Days Qty: 15 0RF lithium carbonate 450 mg tablet extended release 450 mg PO BEDTIME 30 Days Qty: 30 0RF sertraline 50 mg Tablet 50 mg PO DAILY 30 Days Qty: 30 0RF metoprolol tartrate 25 mg tablet 12.5 mg PO BID 30 Days Qty: 30 0RF quetiapine 400 mg tablet 400 mg PO BEDTIME 30 Days Qty: 30 0RF Interventions: Yates-Suicide Risk Severity Scale Last Done: 06/19/22 06:54
[2022-06-19 11:55] VITALS: BP 144/87; PULSE 104; RESP 16; TEMP 36.9; O2SAT 92
--- NOTE | 2022-06-19 12:03 | PC.NURSE ---
PT SI WITH RACING THOUGHTS HAS BEEN OFF MEDS FOR 2 MONTHS
--- NOTE | 2022-06-19 13:14 | MHC.CARE ---
CARE Team notified battery charger tester crisis assessment can not complete until medical clearance;labs
[2022-06-19 13:42] LABS: MANUAL DIFF FLAG NO
[2022-06-19 13:48] LABS: Basophils Percent Auto 0.4 % (0-2); Eosinophils Absolute Auto 0.1 X10*3/uL (0.0-0.4); Eosinophils Percent Auto 0.8 % (0-4); Hematocrit 41.9 % (37.0-47.0); Imm Gran Abs Auto 0.03 X10*3/uL (0.00-0.03); Imm Gran Pct Auto 0.3 % (0.0-0.4); Lymphocytes Absolute Auto 3.2 X10*3/uL (1.2-4.9); Lymphocytes Percent Auto 31.1 % (20-40); Mean Corpuscular Hemoglobin 27.6 pg (27.0-33.0); Mean Platelet Volume 9.1 fL (9.4-12.3); Monocytes Absolute Auto 0.6 X10*3/uL (0.1-1.2); Monocytes Percent Auto 5.8 % (2-11); Neutrophils Absolute Auto 6.4 x10*3/uL (2.0-8.3); Neutrophils Percent Auto 61.6 % (45-73); Platelet Count 348 X10*3/uL (160-400); Red Blood Count 4.71 X10*6/uL (4.20-5.50); Red Cell Distribution Width 13.6 % (11.0-16.0); White Blood Count 10.4 X10*3/uL (4.8-10.8)
[2022-06-19 13:59] LABS: Anion Gap 16 (12-20); Blood Urea Nitrogen 23 mg/dL (9-16); Calcium 9.7 mg/dL (8.4-10.2); Carbon Dioxide 26 mmol/L (22-29); Chloride 105 mmol/L (96-108); Creatinine Clr Calc Pharmacy 88.3; Estimated Glomerular Filt Rate > 60; Glucose Random 110 mg/dL (60-115); Potassium 3.4 mmol/L (3.3-5.1); Sodium 144 mmol/L (135-145)
[2022-06-19 14:01] LABS: COVID-19 Test Negative (Negative); IDNOW Serial# BCCEAD1C
[2022-06-19 14:20] LABS: Ethanol < 10 mg/dL
[2022-06-19 14:23] LABS: Appearance Urine Cloudy; Color Urine Yellow; Glucose Urine UA Negative (Negative); Leukocyte Esterase Urine Moderate (2+) (Negative); Nitrite Urine Negative (Negative); PH 5.5 (5.0-9.0); UMIC TRIGGER UACC YES; Urine Blood Negative (Negative); Urine Ketones 15 mg/dL (Negative); Urine Protein 30 (1+) mg/dL (Neg-Trace)
[2022-06-19 14:25] LABS: Bacteria Urine Trace (None Seen); Squamous Epithelial Cell Urine >20 /HPF (0-2); UACC Culture Trigger YES; WBC Urine >50 /HPF (0-5)
[2022-06-19 14:45] LABS: Amphetamine Screen Urine Not Detected (Not Detect); Barbiturates, Urine Not Detected (Not Detect); Benzodiazepines Screen Urine Not Detected (Not Detect); Cannabinoid Screen Urine Not Detected (Not Detect); Cocaine Screen Urine Not Detected (Not Detect); Fentanyl, urine Not Detected (Not Detect); Opiate Screen Urine Not Detected (Not Detect); Phencyclidine Screen Urine Not Detected (Not Detect)
--- NOTE | 2022-06-19 15:17 | PC.NURSE ---
Addendum entered by Caitlyn Bullard 06/19/22 16:14: Pt moved from 8 to 2. Belongings moved by tech into locker 2 Original Note: Pt anxious in pod. Reports being non med compliant x months. Med rec completed per last fill. Pt endorses intermittent SI w/ racing thoughts.
[2022-06-19 16:00] VITALS: RESP 16
[2022-06-19 17:07] LABS: Appearance Urine Cloudy; Color Urine Yellow; Glucose Urine UA Negative (Negative); Leukocyte Esterase Urine Moderate (2+) (Negative); Nitrite Urine Negative (Negative); PH 5.5 (5.0-9.0); UMIC TRIGGER UACC YES; Urine Blood Negative (Negative); Urine Ketones 15 mg/dL (Negative); Urine Protein 30 (1+) mg/dL (Neg-Trace)
[2022-06-19 17:10] LABS: Bacteria Urine 1+ (None Seen); UACC Culture Trigger YES; WBC Urine 21-50 /HPF (0-5)
[2022-06-19] MEDS: cephALEXin 500 MG CAPSULE PO (17:32)
[2022-06-19 18:00] VITALS: RESP 16
[2022-06-19 21:29] LABS: Lithium < 0.10 mmol/L (0.60-1.20)
[2022-06-20 04:19] VITALS: BP 147/86; PULSE 84; RESP 17; TEMP 37.1; O2SAT 97
--- NOTE | 2022-06-20 05:10 | PC.NURSE ---
Patient slept through the night, no distress observed/reported, behavior appropriate and non concerning, med rec completed/pending provider's approval, patient is not compliant with her medication as evidenced by lithium level 0.1, patient signed CV, VSS, will continue to monitor.
[2022-06-20 05:25] VITALS: BP 146/80; PULSE 102; RESP 18; TEMP 36.6; O2SAT 94
--- NOTE | 2022-06-20 07:50 | PC.NURSE ---
Pt is refusing the flu shot stating that she already received it this year.
[2022-06-20 07:51] VITALS: BMI 32.6
--- NOTE | 2022-06-20 08:32 | PC.ADMIT ---
Pt is 51 yo Kazakh speaking female admitted to unit through [facility] after referral from the CARE Team. Arrived on unit at 0525 today. Legal status is CV. Pt denies medical issues except for HTN. Pt denies any substance use or abuse. Denies tobacco use. Pt states that she already has received the flu shot this year. Pt presents as quiet and tearful when asked about what brought her into the hospital. Upon further questioning, she states that her mother and that she was murdered . Per crisis eval, states that pt lives alone with her dog, Jorden. When asking pt about who is taking care of her dog while she is here, she became tearful and stated that he recently. Per crisis eval, pt emergency contact is her Mom? Not sure what is going on with that? During the admission eval, she stated that she feels as though she cannot think, has racing thoughts and increased levels of stress and anxiety. Pt is tearful and speaks mostly senegalese, teaching specialists was summoned to assist. Provider recreation instructor Yuliya Gutierrez notified of admission and orders obtained. Pt placed on 15 minute safety checks. Pt reports feeling safe in the hospital.
[2022-06-20 08:41] VITALS: BP 143/82; PULSE 83; RESP 17; TEMP 36.6; O2SAT 96
--- NOTE | 2022-06-20 17:13 | HO.PSYADMNOT ---
HPI Date of Service: 06/20/22 Chief Complaint: Psychosis HPI Narrative: Latoya is a 51 y.o. female who carries a dx of MDD with psychotic features. She presented to [facility] on 06[place]19/22 due to command AH, increased depression. Precipitating fx include anniversary of her ?s in 06/2021 due to kidney issues. Pt known to [facility] from two prev admissions, last on 12/30/21-01/10/22 due to pt holding a knife to her wrist (while holding her dog) and threatening to kill herself, gesturing knife towards family members, and command telling her to kill herself, others, or her dog. Her first admission to [facility] was on -11/14/21 for depression, AH, and SI. Prior to that she had no psychiatric history. She has historically been stabilized on seroquel 400 mg QHS, lithium 450 mg HS, and zoloft 50 mg. Currently pt says she has been adherent with her meds but says she is only taking half doses of her bedtime meds due to feeling they are ?too strong.? Li level <0.1 on 06/19/22. Utox negative, no alcohol abuse. I spoke with pt this evening with anchorer. She again states she has been taking her medications and unable to explain why Li level is so low. Says she takes half doses because ?there is a pill that makes you sleep? and feels it is too strong as she has to take care of the kids in the day. Will D/C trazodone, as she no longer wants to take it. Says she is overall able to sleep. States her depression has been high and she has a lot of anxiety. Denies SI. Denies recent self harm. Continues to endorse AH, ?the voices are a lot,? ?they are stronger.? Says the voices were manageable upon her most recent discharge from . Discussed that lowering the Seroquel may have led to breakthrough voices. Says the voices tell her ?to do damage,? feels like ?I cant control it.? Says she is trying to say ?stop to the voices but they are still there.? Pt is anxious during interview and says its due to ?a lot of stuff in my head.? Perseverating on the dynamic etching processor and ambulance coming to her house to bring her to the hospital. Also misses her dog. Says things felt ?very tense at home? but unable to elaborate. Past Psychiatric History: -OP: [facility] but did not follow up with them -IP: M5 12/30/21-01/10/22 due to pt holding a knife to her wrist (while holding her dog) and threatening to kill herself, gesturing knife towards family members, and command AH telling her to kill herself, others, or her dog. Her first admission to [facility] was on -11/14/21 for depression, AH, and SI. No prior psych hx. -Hx of suicide attempts, has tried to cut her wrist -Past med trials: risperidone (not very effective), olanzapine (not very effective), thorazine (not very effective) -Per discharge summary from in 10/2021: pt was tried on different antipsychotics including risperidone, olanzapine and thorazine during admission but did not respond. She appeared to respond to a combination of sertraline, lithium and seroquel. 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 Substance History: Denies Trauma History: Denies Diagnostics Vital Signs (24Hr): Vital Signs - 24 hr 06/19/22 18:00 06/20/22 04:19 06/20/22 05:25 Temperature 98.7 F 97.8 F Pulse Rate 84 102 H Respiratory Rate 16 17 18 Blood Pressure 147/86 H 146/80 H Pulse Oximetry 97 94 Oxygen Delivery Method Room Air Room Air 06/20/22 08:41 Temperature 97.8 F Pulse Rate 83 Respiratory Rate 17 Blood Pressure 143/82 H Pulse Oximetry 96 Oxygen Delivery Method Room Air BMI result Body Mass Index 32.6 Labs Results: 06/19/22 13:36 06/19/22 13:36 Labs: Laboratory Results - last 48 hr 06/19/22 06/19/22 06/19/22 13:36 13:36 13:36 WBC 10.4 RBC 4.71 Hgb 13.0 Hct 41.9 MCV 89.0 MCH 27.6 MCHC 31.0 RDW 13.6 Plt Count 348 MPV 9.1 L Immature Gran % (Auto) 0.3 Neut % (Auto) 61.6 Lymph % (Auto) 31.1 [place] % (Auto) 5.8 Eos % (Auto) 0.8 Baso % (Auto) 0.4 Lymph # (Auto) 3.2 [place] # (Auto) 0.6 Eos # (Auto) 0.1 Baso # (Auto) 0.0 Abs Immat Gran (auto) 0.03 Absolute Neuts (auto) 6.4 Absolute Nucleated RBC 0.000 Nucleated RBC % (auto) 0.0 Sodium 144 Potassium 3.4 Chloride 105 Carbon Dioxide 26 Anion Gap 16 BUN 23 H Creatinine 0.73 Estim Creat Clear Calc 88.3 Estimated GFR > 60 Random Glucose 110 Calcium 9.7 Urine Color Urine Appearance Urine pH Ur Specific [place] Urine Protein Urine Glucose (UA) Urine Ketones Urine Blood Urine Nitrite Ur Leukocyte Esterase Urine RBC Urine WBC Ur Squamous Epith Cells Urine Bacteria Hyaline Casts Urine Opiates Screen Urine Fentanyl Screen Ur Barbiturates Screen Ur Phencyclidine Scrn Ur Amphetamines Screen U Benzodiazepines Scrn [place] Urine Cocaine Screen U Marijuana (THC) Screen Ethyl Alcohol < 10 COVID-19 (IRVIN) Negative COVID-19 Clin Com See Note 06/19/22 06/19/22 06/19/22 14:11 14:11 17:02 WBC RBC Hgb Hct MCV MCH MCHC RDW Plt Count MPV Immature Gran % (Auto) Neut % (Auto) Lymph % (Auto) [place] % (Auto) Eos % (Auto) Baso % (Auto) Lymph # (Auto) [place] # (Auto) Eos # (Auto) Baso # (Auto) Abs Immat Gran (auto) Absolute Neuts (auto) Absolute Nucleated RBC Nucleated RBC % (auto) Sodium Potassium Chloride Carbon Dioxide Anion Gap BUN Creatinine Estim Creat Clear Calc Estimated GFR Random Glucose Calcium Urine Color Yellow Yellow Urine Appearance Cloudy Cloudy Urine pH 5.5 5.5 Ur Specific [place] 1.020 1.020 Urine Protein 30 (1+) H 30 (1+) H Urine Glucose (UA) Negative Negative Urine Ketones 15 15 Urine Blood Negative Negative Urine Nitrite Negative Negative Ur Leukocyte Esterase Moderate (2+) H Moderate (2+) H Urine RBC 3-5 H 3-5 H Urine WBC >50 H 21-50 H Ur Squamous Epith Cells >20 11-20 Urine Bacteria Trace 1+ Hyaline Casts 3-5 3-5 Urine Opiates Screen Not Detected Urine Fentanyl Screen Not Detected Ur Barbiturates Screen Not Detected Ur Phencyclidine Scrn Not Detected Ur Amphetamines Screen Not Detected U Benzodiazepines Scrn Not Detected [place] Urine Cocaine Screen Not Detected U Marijuana (THC) Screen Not Detected Ethyl Alcohol COVID-19 (IRVIN) COVID-19 [employer] 06/19/22 20:47 WBC RBC Hgb Hct MCV MCH MCHC RDW Plt Count MPV Immature Gran % (Auto) Neut % (Auto) Lymph % (Auto) [place] % (Auto) Eos % (Auto) Baso % (Auto) Lymph # (Auto) [place] # (Auto) Eos # (Auto) Baso # (Auto) Abs Immat Gran (auto) Absolute Neuts (auto) Absolute Nucleated RBC Nucleated RBC % (auto) Sodium Potassium Chloride Carbon Dioxide Anion Gap BUN Creatinine Estim Creat Clear Calc Estimated GFR Random Glucose Calcium Urine Color Urine Appearance Urine pH Ur Specific [place] Urine Protein Urine Glucose (UA) Urine Ketones Urine Blood Urine Nitrite Ur Leukocyte Esterase Urine RBC Urine WBC Ur Squamous Epith Cells Urine Bacteria Hyaline Casts Urine Opiates Screen Urine Fentanyl Screen Ur Barbiturates Screen Ur Phencyclidine Scrn Ur Amphetamines Screen U Benzodiazepines Scrn [place] < 0.10 L Urine Cocaine Screen U Marijuana (THC) Screen Ethyl Alcohol COVID-19 (IRVIN) COVID-19 [employer] Meds/Allergies Meds Home Medications Medication Instructions Recorded Confirmed Type amlodipine 10 mg tablet 1 tab PO QAM 06/19/22 06/19/22 History lithium carbonate 450 mg 1 tab PO BEDTIME 06/19/22 06/19/22 History tablet,extended release metoprolol succinate 25 mg 0.5 tab PO BID 06/19/22 06/19/22 History tablet,extended release 24 hr quetiapine 400 mg tablet 1 tab PO BEDTIME 06/19/22 06/19/22 History sertraline 50 mg tablet 1 tab PO QAM 06/19/22 06/19/22 History trazodone 50 mg tablet 0.5 tab PO BEDTIME 06/19/22 06/19/22 History Allergies Allergies Allergy/AdvReac Type Severity Reaction Status Date / Time No Known Allergies Allergy Verified 10/27/21 12:12 Mental Status Exam Mental Status Exam Narrative: Patient Appearance:?Appropriate, casual attire, overweight Patient Orientation:?Person, Place and Situation Level of Consciousness:?Alert Patient Behavior:?Guarded, Suspicious, Good Eye Contact Mood Description:?Depressed Affect Description:?Constricted, anxious Patient Cognition Impaired:?No Ability to Follow Directions:?Good Speech Pattern:?Spontaneous Speech and Soft-Spoken Memory Description:?Intact Hallucinations:?Auditory Delusions:?Paranoid Ideation Thought Process:?Distracted Thought Content:?positive for [place] and positive for Suicidal Ideation Depressive Symptoms:?Increased anxiety, inattention Judgment:?limited, impulsive Assessment & Plan Assessment & Plan (1) MDD (major depressive disorder), single episode, severe with psychosis: Status: Acute Code(s): F32.3 - Major depressive disorder, single episode, severe with psychotic features Plan Latoya is a 51 y.o. female who carries a dx of MDD with psychotic features. She presented to [facility] on 06/19/22 due to command AH, increased depression. Precipitating fx include anniversary of her ?s in 06/2021 due to kidney issues. Pt known to [facility] [place] two prev admissions, last on M5 12/30/21-01/10/22. She has historically been stabilized on seroquel 400 mg QHS, lithium 450 mg HS, and zoloft 50 mg. Currently pt says she has been adherent with her meds but says she is only taking half doses of her bedtime meds due to feeling they are ?too strong.? Li level <0.1 on 06/19/22. Utox negative, no alcohol abuse. Plan: Pt does not appear adherent on lithium based on Li level, non adherent with lab work. Will d/c trazodone due to sedation. Re-increase seroquel to 400 mg HS and increase zoloft to 75 mg daily for depression. Start seroquel 25 mg BID PRN for anxiety. Q15 min safety checks, CV Monitor response to medications. Monitor for safety in the milieu. Discharge on stabilization. Patient seen. Chart reviewed. Discussed with team. Obtain collateral contact info?as needed Patient educated on: diagnosis, medication risk/benefits and therapeutic strategies Reason for continued inpatient stay Substantial Risk for: harm to self and med/psych decompensation
[2022-06-20 20:29] VITALS: BP 165/72; PULSE 99; RESP 18; TEMP 36.4; O2SAT 95
[2022-06-20] MEDS: Metoprolol Succinate ER 12.5 MG HALFTAB.ER.24H PO (21:42)
[2022-06-20] MEDS: QUEtiapine Fumarate 400 MG TABLET PO (21:42)
[2022-06-20 21:45] VITALS: BP 179/89; PULSE 81; RESP 18
--- NOTE | 2022-06-21 01:52 | HO.PSYCHPN ---
Subjective Subjective Date of Service: 06/21/22 Reason For Visit: Psychosis Interim History: Spoke with team and pt. Used nursing teacher. Pt says she did not sleep very well, but thinks seroquel helped some. Daytime energy is regular. Complains that the voices are horrible, i just want to get rid of this. Doesnt want to disclose what the voices say. Says the voices come and go- playing cards, walking, going outside, speaking to friends helps. Pt is anxious, unable to say why, says she feels there is something inside her that wont leave her alone, tries to pray. Encouraged to use PRN seroquel. Mental Status Exam Mental Status Exam Narrative: Patient Appearance:?Appropriate, casual attire, overweight Patient Orientation:?Person, Place and Situation Level of Consciousness:?Alert Patient Behavior:?Guarded, Suspicious, Good Eye Contact Mood Description:?Depressed Affect Description:?Constricted, anxious Patient Cognition Impaired:?No Ability to Follow Directions:?Good Speech Pattern:?Spontaneous Speech and Soft-Spoken Memory Description:?Intact Hallucinations:?Auditory Delusions:?Paranoid Ideation Thought Process:?Distracted Thought Content:?positive for [place] and positive for Suicidal Ideation Depressive Symptoms:?Increased anxiety, inattention Judgment:?limited, impulsive Diagnostics Vital Signs (24Hr): Vital Signs - 24 hr 06/20/22 04:19 06/20/22 05:25 06/20/22 08:41 Temperature 98.7 F 97.8 F 97.8 F Pulse Rate 84 102 H 83 Respiratory Rate 17 18 17 Blood Pressure 147/86 H 146/80 H 143/82 H Pulse Oximetry 97 94 96 Oxygen Delivery Method Room Air Room Air Room Air 06/20/22 20:29 06/20/22 21:45 Temperature 97.5 F Pulse Rate 99 81 Respiratory Rate 18 18 Blood Pressure 165/72 H 179/89 H Pulse Oximetry 95 Oxygen Delivery Method Room Air BMI result Body Mass Index 32.6 Labs Results: 06/19/22 13:36 06/19/22 13:36 Labs: Laboratory Results - last 48 hr 06/19/22 06/19/22 06/19/22 13:36 13:36 13:36 WBC 10.4 RBC 4.71 Hgb 13.0 Hct 41.9 MCV 89.0 MCH 27.6 MCHC 31.0 RDW 13.6 Plt Count 348 MPV 9.1 L Immature Gran % (Auto) 0.3 Neut % (Auto) 61.6 Lymph % (Auto) 31.1 [place] % (Auto) 5.8 Eos % (Auto) 0.8 Baso % (Auto) 0.4 Lymph # (Auto) 3.2 [place] # (Auto) 0.6 Eos # (Auto) 0.1 Baso # (Auto) 0.0 Abs Immat Gran (auto) 0.03 Absolute Neuts (auto) 6.4 Absolute Nucleated RBC 0.000 Nucleated RBC % (auto) 0.0 Sodium 144 Potassium 3.4 Chloride 105 Carbon Dioxide 26 Anion Gap 16 BUN 23 H Creatinine 0.73 Estim Creat Clear Calc 88.3 Estimated GFR > 60 Random Glucose 110 Calcium 9.7 Urine Color Urine Appearance Urine pH Ur Specific [place] Urine Protein Urine Glucose (UA) Urine Ketones Urine Blood Urine Nitrite Ur Leukocyte Esterase Urine RBC Urine WBC Ur Squamous Epith Cells Urine Bacteria Hyaline Casts Urine Opiates Screen Urine Fentanyl Screen Ur Barbiturates Screen Ur Phencyclidine Scrn Ur Amphetamines Screen U Benzodiazepines Scrn [place] Urine Cocaine Screen U Marijuana (THC) Screen Ethyl Alcohol < 10 COVID-19 (IRVIN) Negative COVID-19 Clin Com See Note 06/19/22 06/19/22 06/19/22 14:11 14:11 17:02 WBC RBC Hgb Hct MCV MCH MCHC RDW Plt Count MPV Immature Gran % (Auto) Neut % (Auto) Lymph % (Auto) [place] % (Auto) Eos % (Auto) Baso % (Auto) Lymph # (Auto) [place] # (Auto) Eos # (Auto) Baso # (Auto) Abs Immat Gran (auto) Absolute Neuts (auto) Absolute Nucleated RBC Nucleated RBC % (auto) Sodium Potassium Chloride Carbon Dioxide Anion Gap BUN Creatinine Estim Creat Clear Calc Estimated GFR Random Glucose Calcium Urine Color Yellow Yellow Urine Appearance Cloudy Cloudy Urine pH 5.5 5.5 Ur Specific [place] 1.020 1.020 Urine Protein 30 (1+) H 30 (1+) H Urine Glucose (UA) Negative Negative Urine Ketones 15 15 Urine Blood Negative Negative Urine Nitrite Negative Negative Ur Leukocyte Esterase Moderate (2+) H Moderate (2+) H Urine RBC 3-5 H 3-5 H Urine WBC >50 H 21-50 H Ur Squamous Epith Cells >20 11-20 Urine Bacteria Trace 1+ Hyaline Casts 3-5 3-5 Urine Opiates Screen Not Detected Urine Fentanyl Screen Not Detected Ur Barbiturates Screen Not Detected Ur Phencyclidine Scrn Not Detected Ur Amphetamines Screen Not Detected U Benzodiazepines Scrn Not Detected [place] Urine Cocaine Screen Not Detected U Marijuana (THC) Screen Not Detected Ethyl Alcohol COVID-19 (IRVIN) COVID-19 [facility] Com 06/19/22 20:47 WBC RBC Hgb Hct MCV MCH MCHC RDW Plt Count MPV Immature Gran % (Auto) Neut % (Auto) Lymph % (Auto) [place] % (Auto) Eos % (Auto) Baso % (Auto) Lymph # (Auto) [place] # (Auto) Eos # (Auto) Baso # (Auto) Abs Immat Gran (auto) Absolute Neuts (auto) Absolute Nucleated RBC Nucleated RBC % (auto) Sodium Potassium Chloride Carbon Dioxide Anion Gap BUN Creatinine Estim Creat Clear Calc Estimated GFR Random Glucose Calcium Urine Color Urine Appearance Urine pH Ur Specific [place] Urine Protein Urine Glucose (UA) Urine Ketones Urine Blood Urine Nitrite Ur Leukocyte Esterase Urine RBC Urine WBC Ur Squamous Epith Cells Urine Bacteria Hyaline Casts Urine Opiates Screen Urine Fentanyl Screen Ur Barbiturates Screen Ur Phencyclidine Scrn Ur Amphetamines Screen U Benzodiazepines Scrn [place] < 0.10 L Urine Cocaine Screen U Marijuana (THC) Screen Ethyl Alcohol COVID-19 (IRVIN) COVID-19 Clin Com Medications Medications Current Medications Acetaminophen (Acetaminophen 325 Mg Tablet) 650 mg PO Q6H PRN PRN Reason: Headache/Pain Mild Scale (1-3) Al Hydroxide/Mg Hydroxide (Magnesium Hydrox/Alum Hydrox 30 Ml Oral.Susp) 30 ml PO Q6H PRN PRN Reason: Heartburn/Nausea Amlodipine Besylate (Amlodipine Besylate 10 Mg Tablet) 10 mg PO DAILY [facility]; Protocol Hydroxyzine HCl (Hydroxyzine Hcl 25 Mg Tablet) 25 mg PO Q6H PRN PRN Reason: Anxiety Magnesium Hydroxide (Milk Of Magnesia 30 Ml Oral.Susp) 30 ml PO DAILY PRN PRN Reason: Constipation Metoprolol Succinate (Metoprolol Succinate Er 12.5 Mg Halftab.Er.24h) 12.5 mg PO BID [facility]; Protocol Last Admin: 06/20/22 21:42 Dose: 12.5 mg Quetiapine Fumarate (Quetiapine Fumarate 400 Mg Tablet) 400 mg PO BEDTIME BASIL Last Admin: 06/20/22 21:42 Dose: 400 mg Quetiapine Fumarate (Quetiapine Fumarate 25 Mg Tablet) 25 mg PO BID PRN PRN Reason: anxiety Sertraline HCl (Sertraline Hcl 25 Mg Tablet) 75 mg PO DAILY [facility]IL Allergies Allergies Allergy/AdvReac Type Severity Reaction Status Date / Time No Known Allergies Allergy Verified 10/27/21 12:12 Assessment & Plan Assessment & Plan (1) MDD (major depressive disorder), single episode, severe with psychosis: Status: Acute Code(s): F32.3 - Major depressive disorder, single episode, severe with psychotic features Plan Latoya is a 51 y.o. female who carries a dx of MDD with psychotic features. She [place] [facility] [place]22 due to command AH, increased depression. Precipitating fx include anniversary of her ?s in 06/2021 due to kidney issues. Pt known [place] [facility] [place] prev [place], last on 12/30/21-01/10/22. She has historically been stabilized on seroquel 400 mg QHS, lithium 450 mg HS, and zoloft 50 mg. Currently pt says she has been adherent with her meds but says she is only taking half doses of her bedtime meds due to feeling they are ?too strong.? Li level <0.1 on 06/19/22. Utox negative, no alcohol abuse. Plan: Pt does not appear adherent on lithium based on Li level, non adherent with lab work. Will d/c trazodone due to sedation. Re-increase seroquel to 400 mg HS and increase zoloft to 75 mg daily for depression. Start seroquel 25 mg BID PRN for anxiety. Q15 min safety checks, CV Monitor response to medications. Monitor for safety in the milieu. Discharge on stabilization. Patient seen. Chart reviewed. Discussed with team. Obtain collateral contact info?as needed 06/21 No changes, monitor meds for benefit, encouraged to use PRN seroquel for anxiety I spent minutes with the patient and/or on the patient floor today, greater than?50% of which was spent counseling/coordinating care. Patient educated on: medication risk/benefits and therapeutic strategies Reason for contiued inpatient stay Substantial Risk for: rapid decompensation and med/psych decompensation
[2022-06-21 06:00] VITALS: BP 138/70; PULSE 99; RESP 18; TEMP 36.2; O2SAT 96
[2022-06-21 07:46] LABS: Estimated Average Glucose 117 mg/dL; Hemoglobin A1c % 5.7 %
[2022-06-21 08:10] LABS: Cholesterol 160 mg/dL; HDL Cholesterol 45 mg/dL; LDL Cholesterol Calculated 90 mg/dl; Magnesium 2.2 mg/dL (1.6-2.6); Thyroid Stimulating Hormone 5.63 uIU/mL (0.32-4.0); Triglycerides 129 mg/dL
[2022-06-21 08:26] LABS: Folate 11.6 ng/mL (> or = 4.0); Vitamin B12 289 pg/mL (200-900)
[2022-06-21] MEDS: Metoprolol Succinate ER 12.5 MG HALFTAB.ER.24H PO ×2 (09:50→22:19)
[2022-06-21] MEDS: Sertraline HCL 25 MG TABLET 75 MG PO ×2 (09:50→22:20)
[2022-06-21] MEDS: amLODIPine Besylate 10 MG TABLET PO (09:50)
[2022-06-21 14:25] LABS: Appearance Urine Cloudy; Color Urine Yellow; Glucose Urine UA Negative (Negative); Leukocyte Esterase Urine Moderate (2+) (Negative); Nitrite Urine Negative (Negative); PH 5.5 (5.0-9.0); Specific Gravity - Urine 1.025 (1.005-1.025); UMIC TRIGGER UA YES; Urine Blood Negative (Negative); Urine Ketones Negative (Negative); Urine Protein Trace mg/dL (Neg-Trace)
[2022-06-21 14:42] LABS: Bacteria Urine 1+ (None Seen); Squamous Epithelial Cell Urine >20 /HPF (0-2); WBC Urine 21-50 /HPF (0-5)
[2022-06-21] MEDS: QUEtiapine Fumarate 25 MG TABLET PO (14:58)
[2022-06-21 22:10] VITALS: BP 132/80; PULSE 106; RESP 16; TEMP 36.8; O2SAT 97
[2022-06-21] MEDS: cephALEXin 500 MG CAPSULE PO (22:19)
[2022-06-21] MEDS: QUEtiapine Fumarate 400 MG TABLET PO (22:21)
[2022-06-22 06:00] VITALS: BP 124/69; PULSE 92; RESP 16; TEMP 36.7; O2SAT 97
[2022-06-22] MEDS: Metoprolol Succinate ER 12.5 MG HALFTAB.ER.24H PO ×2 (09:01→22:37)
[2022-06-22] MEDS: cephALEXin 500 MG CAPSULE PO ×2 (09:01→22:37)
[2022-06-22] MEDS: amLODIPine Besylate 10 MG TABLET PO (09:01)
[2022-06-22] MEDS: QUEtiapine Fumarate 25 MG TABLET PO (09:02)
--- NOTE | 2022-06-22 15:37 | HO.PSYCHPN ---
Subjective Subjective Date of Service: 06/22/22 Reason For Visit: Psychosis Interim History: Spoke with pt and team. Used intepreter. Says she is still with a lot of depression, couldnt fall asleep easily. Says she is worried, thinking about my dog and my family, worried about her dog. It helps to talk with her family. She woke up feeling tired due to poor sleep. Says she wants to stay on seroquel, not interested in switching meds, seroquel makes her feel more relaxed. Says the voices are still in my head, again does not want to disclose what voices say but that they are telling her different things like giving me orders, bad things. Feels safe on the unit. Mental Status Exam Mental Status Exam Narrative: Patient Appearance:?Appropriate, casual attire, overweight Patient Orientation:?Person, Place and Situation Level of Consciousness:?Alert Patient Behavior:?Guarded, Suspicious, Good Eye Contact Mood Description:?Depressed Affect Description:?Constricted, anxious Patient Cognition Impaired:?No Ability to Follow Directions:?Good Speech Pattern:?Spontaneous Speech and Soft-Spoken Memory Description:?Intact Hallucinations:?Auditory Delusions:?Paranoid Ideation Thought Process:?Distracted Thought Content:?positive for [place] and positive for Suicidal Ideation Depressive Symptoms:?Increased anxiety, inattention Judgment:?limited, impulsive Diagnostics Vital Signs (24Hr): Vital Signs - 24 hr 06/21/22 22:10 06/22/22 06:00 Temperature 98.2 F 98.1 F Pulse Rate 106 H 92 Respiratory Rate 16 16 Blood Pressure 132/80 124/69 Pulse Oximetry 97 97 Oxygen Delivery Method Room Air Room Air BMI result Body Mass Index 32.6 Labs Results: 06/19/22 13:36 06/19/22 13:36 Labs: Laboratory Results - last 48 hr 06/21/22 06/21/22 06/21/22 07:06 07:06 07:06 Estimat Average Glucose 117 Hemoglobin A1c % 5.7 Magnesium 2.2 Triglycerides 129 Cholesterol 160 LDL Cholesterol, Calc 90 HDL Cholesterol 45 Vitamin B12 289 Folate 11.6 TSH 5.63 H Free T4 1.10 Urine Color Urine Appearance Urine pH Ur Specific [place] Urine Protein Urine Glucose (UA) Urine Ketones Urine Blood Urine Nitrite Ur Leukocyte Esterase Urine RBC Urine WBC Ur Squamous Epith Cells Urine Bacteria Hyaline Casts 06/21/22 13:40 Estimat Average Glucose Hemoglobin A1c % Magnesium Triglycerides Cholesterol LDL Cholesterol, Calc HDL Cholesterol Vitamin B12 Folate TSH Free T4 Urine Color Yellow Urine Appearance Cloudy Urine pH 5.5 Ur Specific [place] 1.025 Urine Protein Trace Urine Glucose (UA) Negative Urine Ketones Negative Urine Blood Negative Urine Nitrite Negative Ur Leukocyte Esterase Moderate (2+) H Urine RBC 6-10 H Urine WBC 21-50 H Ur Squamous Epith Cells >20 Urine Bacteria 1+ Hyaline Casts 3-5 Medications Medications Current Medications Acetaminophen (Acetaminophen 325 Mg Tablet) 650 mg PO Q6H PRN PRN Reason: Headache/Pain Mild Scale (1-3) Al Hydroxide/Mg Hydroxide (Magnesium Hydrox/Alum Hydrox 30 Ml Oral.Susp) 30 ml PO Q6H PRN PRN Reason: Heartburn/Nausea Amlodipine Besylate (Amlodipine Besylate 10 Mg Tablet) 10 mg PO DAILY [facility]; Protocol Last Admin: 06/22/22 09:01 Dose: 10 mg Cephalexin HCl (Cephalexin 500 Mg Capsule) 500 mg PO Q12H BASIL Stop: 06/27/22 20:59 Last Admin: 06/22/22 09:01 Dose: 500 mg Hydroxyzine HCl (Hydroxyzine Hcl 25 Mg Tablet) 25 mg PO Q6H PRN PRN Reason: Anxiety Magnesium Hydroxide (Milk Of Magnesia 30 Ml Oral.Susp) 30 ml PO DAILY PRN PRN Reason: Constipation Metoprolol Succinate (Metoprolol Succinate Er 12.5 Mg Halftab.Er.24h) 12.5 mg PO BID [facility]; Protocol Last Admin: 06/22/22 09:01 Dose: 12.5 mg Quetiapine Fumarate (Quetiapine Fumarate 400 Mg Tablet) 400 mg PO BEDTIME [facility] Last Admin: 06/21/22 22:21 Dose: 400 mg Quetiapine Fumarate (Quetiapine Fumarate 25 Mg Tablet) 25 mg PO BID PRN PRN Reason: anxiety Last Admin: 06/22/22 09:02 Dose: 25 mg Sertraline HCl (Sertraline Hcl 25 Mg Tablet) 75 mg PO BEDTIME BASIL Last Admin: 06/21/22 22:20 Dose: 75 mg Allergies Allergies Allergy/AdvReac Type Severity Reaction Status Date / Time No Known Allergies Allergy Verified 10/27/21 12:12 Assessment & Plan Assessment & Plan (1) MDD (major depressive disorder), single episode, severe with psychosis: Status: Acute Code(s): F32.3 - Major depressive disorder, single episode, severe with psychotic features Plan Latoya is a 51 y.o. female who carries a dx of MDD with psychotic features. She presented to [facility] ED on 06/19/22 due to command AH, increased depression. Precipitating fx include anniversary of her ?s in 06/2021 due to kidney issues. Pt known to [facility] from two prev admissions, last on 12/30/21-01/10/22. She has historically been stabilized on seroquel 400 mg QHS, lithium 450 mg HS, and zoloft 50 mg. Currently pt says she has been adherent with her meds but says she is only taking half doses of her bedtime meds due to feeling they are ?too strong.? Li level <0.1 on 06/19/22. Utox negative, no alcohol abuse. Plan: Pt does not appear adherent on lithium based on Li level, non adherent with lab work. Will d/c trazodone due to sedation. Re-increase seroquel to 400 mg HS and increase zoloft to 75 mg daily for depression. Start seroquel 25 mg BID PRN for anxiety. Q15 min safety checks, CV Monitor response to medications. Monitor for safety in the milieu. Discharge on stabilization. Patient seen. Chart reviewed. Discussed with team. Obtain collateral contact info?as needed 06/21 No changes, monitor meds for benefit, encouraged to use PRN seroquel for anxiety 06/22 Increase seroquel to 600 mg HS as pt reporting poor sleep, persistent AH I spent minutes with the patient and/or on the patient floor today, greater than?50% of which was spent counseling/coordinating care. Reason for contiued inpatient stay Substantial Risk for: inability to function, rapid decompensation and med/psych decompensation
[2022-06-22 22:30] VITALS: BP 153/75; PULSE 95; RESP 16; TEMP 36.6; O2SAT 96
[2022-06-22] MEDS: Sertraline HCL 25 MG TABLET 75 MG PO (22:37)
[2022-06-22] MEDS: QUEtiapine Fumarate 300 MG TABLET 600 MG PO (22:41)
[2022-06-23 08:57] VITALS: BP 134/80; PULSE 100; RESP 16; TEMP 36.6; O2SAT 97
[2022-06-23] MEDS: amLODIPine Besylate 10 MG TABLET PO (08:59)
[2022-06-23] MEDS: cephALEXin 500 MG CAPSULE PO ×2 (08:59→20:41)
[2022-06-23] MEDS: Metoprolol Succinate ER 12.5 MG HALFTAB.ER.24H PO ×2 (08:59→20:41)
[2022-06-23] MEDS: Acetaminophen 325 MG TABLET 650 MG PO (08:59)
--- NOTE | 2022-06-23 09:13 | P.PNPSI_ITS ---
Subjective Subjective Date of Service: 06/23/22 Reason For Visit: Psychosis Subjective Notes: Conditional Voluntary Interim History: Met with pt and [facility]. Pt reports hearing voices all the time. Pt reports voices telling her bad things. Pt reports at times having suicidal ideation as voices are so disturbing to her. She reports some difficulty falling asleep. 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 She asks if there is another medication for voices that is not too sedating. Medication Compliance: Yes Review of Systems Constitutional: Denies chills and Denies fever(s) Eyes: Denies blurry vision and Denies change in vision Reports system reviewed and no additional complaints, except as documented, Denies vertigo and Denies dizziness Cardiovascular: Reports no additional cardiovascular complaints and Denies syncope Respiratory: Denies cough and Denies wheezing Denies vertigo, Denies dizziness and Denies syncope Psychiatric: Reports anxiety, Reports change in appetite and Reports suicidal ideation Allergic/Immunologic: Denies wheezing Mental Status Exam Mental Status Exam Narrative: Appearance: wearing hospital gown, fair hygiene, in NAD Behavior: friendly. Psychomotor: no agitation or retardation noted Speech: clear, normal rate/rhythm/volume, spontaneous TP: linear TC: hearing voices, distress by voices Mood: anxious Affect: congruent SI: passive HI: no AH: CAH telling her to hurt other people and herself. VH: none Delusions: no overt but distress by voices Insight/judgment: fair x 2. Memory/cog: alert, oriented x 3. Diagnostics Vital Signs (24Hr): Vital Signs - 24 hr 06/23/22 20:36 Temperature 97.6 F Pulse Rate 89 Respiratory Rate 16 Blood Pressure 131/76 Pulse Oximetry 96 Oxygen Delivery Method Room Air BMI result Body Mass Index 32.6 Labs Results: 06/19/22 13:36 06/19/22 13:36 Medications Medications Current Medications Acetaminophen (Acetaminophen 325 Mg Tablet) 650 mg PO Q6H PRN PRN Reason: Headache/Pain Mild Scale (1-3) Last Admin: 06/23/22 08:59 Dose: 650 mg Al Hydroxide/Mg Hydroxide (Magnesium Hydrox/Alum Hydrox 30 Ml Oral.Susp) 30 ml PO Q6H PRN PRN Reason: Heartburn/Nausea Amlodipine Besylate (Amlodipine Besylate 10 Mg Tablet) 10 mg PO DAILY [facility]; Protocol Last Admin: 06/23/22 08:59 Dose: 10 mg Cephalexin HCl (Cephalexin 500 Mg Capsule) 500 mg PO Q12H [facility] Stop: 06/27/22 20:59 Last Admin: 06/23/22 20:41 Dose: 500 mg Hydroxyzine HCl (Hydroxyzine Hcl 25 Mg Tablet) 25 mg PO Q6H PRN PRN Reason: Anxiety Magnesium Hydroxide (Milk Of Magnesia 30 Ml Oral.Susp) 30 ml PO DAILY PRN PRN Reason: Constipation Metoprolol Succinate (Metoprolol Succinate Er 12.5 Mg Halftab.Er.24h) 12.5 mg PO BID [facility]; Protocol Last Admin: 06/23/22 20:41 Dose: 12.5 mg Quetiapine Fumarate (Quetiapine Fumarate 25 Mg Tablet) 25 mg PO BID PRN PRN Reason: anxiety Last Admin: 06/22/22 09:02 Dose: 25 mg Quetiapine Fumarate (Quetiapine Fumarate 300 Mg Tablet) 600 mg PO BEDTIME [facility] Last Admin: 06/23/22 20:41 Dose: 300 mg Sertraline HCl (Sertraline Hcl 25 Mg Tablet) 75 mg PO BEDTIME BASIL Last Admin: 06/23/22 20:41 Dose: 75 mg Allergies Allergies Allergy/AdvReac Type Severity Reaction Status Date / Time No Known Allergies Allergy Verified 10/27/21 12:12 Assessment & Plan Assessment & Plan (1) MDD (major depressive disorder), single episode, severe with psychosis: Status: Acute Code(s): F32.3 - Major depressive disorder, single episode, severe with psychotic features Plan Latoya is a 51 y.o. female who carries a dx of MDD with psychotic features. She presented to [facility] ED on 06/19/22 due to command AH, increased depression. Precip itating fx include anniversary of her ?s in 06/2021 due to kidney issues. Pt known to [facility] from two prev admissions, last on M5 12/30/21-01/10/22. She has historically been stabilized on seroquel 400 mg QHS, lithium 450 mg HS, and zoloft 50 mg. Currently pt says she has been adherent with her meds but says she is only taking half doses of her bedtime meds due to feeling they are ?too s [place].? Li level <0.1 on 06/19/22. Utox negative, no alcohol abuse. Plan: Pt does not appear adherent on lithium based on Li level, non adherent with lab work. Will d/c trazodone due to sedation. Re-increase seroquel to 400 mg HS and increase zoloft to 75 mg daily for depression. Start seroquel 25 mg BID PRN for anxiety. Q15 min safety checks, CV Monitor response to medications. Monitor for safety in the milieu. Discharge on stabilization. Patient seen. Chart reviewed. Discussed with team. Obtain collateral contact info?as needed 06/21 No changes, monitor meds for benefit, encouraged to use PRN seroquel for anxiety 06/23 switch gradually to risperidone. I spent minutes with the patient and/or on the patient floor today, greater than?50% of which was spent counseling/coordinating care. Reason for contiued inpatient stay Substantial Risk for: harm to self and inability to function
[2022-06-23 20:36] VITALS: BP 131/76; PULSE 89; RESP 16; TEMP 36.4; O2SAT 96
[2022-06-23] MEDS: Sertraline HCL 25 MG TABLET 75 MG PO (20:41)
[2022-06-23] MEDS: QUEtiapine Fumarate 300 MG TABLET 600 MG PO (20:41)
[2022-06-24 10:27] VITALS: BP 129/80; PULSE 105; RESP 17; TEMP 37.1; O2SAT 97
[2022-06-24] MEDS: amLODIPine Besylate 10 MG TABLET PO (10:29)
[2022-06-24] MEDS: Metoprolol Succinate ER 12.5 MG HALFTAB.ER.24H PO ×2 (10:29→20:44)
[2022-06-24] MEDS: Acetaminophen 325 MG TABLET 650 MG PO (10:30)
[2022-06-24] MEDS: cephALEXin 500 MG CAPSULE PO ×2 (10:30→20:43)
--- NOTE | 2022-06-24 12:32 | HO.PSYCHPN ---
Subjective Subjective Date of Service: 06/24/22 Reason For Visit: Psychosis Subjective Notes: Conditional Voluntary Interim History: Pt reports hearing voices, throughout the day. She had reported to nurse seeing a dog. She states she was thinking about her dog and then thought she had seen her dog. She denies any plan or intent to hurt herself or others. But reports voices tell her to hurt himself and others. Pt mostly in her room, at times goes out. Medication Compliance: Yes Side effects from medications: No Attending Groups: No Review of Systems Constitutional: Denies chills and Denies fever(s) Eyes: Denies blurry vision and Denies change in vision Reports system reviewed and no additional complaints, except as documented, Denies vertigo and Denies dizziness Cardiovascular: Reports no additional cardiovascular complaints and Denies syncope Respiratory: Denies cough and Denies wheezing Denies vertigo, Denies dizziness and Denies syncope Psychiatric: Reports anxiety, Reports change in appetite and Reports suicidal ideation Allergic/Immunologic: Denies wheezing Mental Status Exam Mental Status Exam Narrative: Appearance: wearing hospital gown, fair hygiene, in NAD Behavior: friendly. Psychomotor: no agitation or retardation noted Speech: clear, normal rate/rhythm/volume, spontaneous TP: linear TC: hearing voices, distress by voices Mood: anxious Affect: congruent SI: passive HI: no AH: CAH telling her to hurt other people and herself. VH: none Delusions: no overt but distress by voices Insight/judgment: fair x 2. Memory/cog: alert, oriented x 3. Diagnostics Vital Signs (24Hr): Vital Signs - 24 hr 06/24/22 10:27 06/24/22 20:35 06/25/22 06:00 Temperature 98.7 F 97.7 F 98.0 F Pulse Rate 105 H 95 98 Respiratory Rate 17 16 18 Blood Pressure 129/80 125/72 132/72 Pulse Oximetry 97 96 98 Oxygen Delivery Method Room Air Room Air Room Air BMI result Body Mass Index 32.6 Labs Results: 06/19/22 13:36 06/19/22 13:36 Medications Medications Current Medications Acetaminophen (Acetaminophen 325 Mg Tablet) 650 mg PO Q6H PRN PRN Reason: Headache/Pain Mild Scale (1-3) Last Admin: 06/24/22 10:30 Dose: 650 mg Al Hydroxide/Mg Hydroxide (Magnesium Hydrox/Alum Hydrox 30 Ml Oral.Susp) 30 ml PO Q6H PRN PRN Reason: Heartburn/Nausea Amlodipine Besylate (Amlodipine Besylate 10 Mg Tablet) 10 mg PO DAILY [facility]; Protocol Last Admin: 06/25/22 09:22 Dose: 10 mg Cephalexin HCl (Cephalexin 500 Mg Capsule) 500 mg PO Q12H [facility] Stop: 06/27/22 20:59 Last Admin: 06/25/22 09:22 Dose: 500 mg Hydroxyzine HCl (Hydroxyzine Hcl 25 Mg Tablet) 25 mg PO Q6H PRN PRN Reason: Anxiety Magnesium Hydroxide (Milk Of Magnesia 30 Ml Oral.Susp) 30 ml PO DAILY PRN PRN Reason: Constipation Metoprolol Succinate (Metoprolol Succinate Er 12.5 Mg Halftab.Er.24h) 12.5 mg PO BID [facility]; Protocol Last Admin: 06/25/22 09:22 Dose: 12.5 mg Quetiapine Fumarate (Quetiapine Fumarate 25 Mg Tablet) 25 mg PO BID PRN PRN Reason: anxiety Last Admin: 06/25/22 09:22 Dose: 25 mg Quetiapine Fumarate (Quetiapine Fumarate 300 Mg Tablet) 300 mg PO BEDTIME [facility] Last Admin: 06/24/22 20:43 Dose: 300 mg Risperidone (Risperidone 1 Mg Tablet) 1 mg PO BID [facility] Last Admin: 06/25/22 09:23 Dose: 1 mg Sertraline HCl (Sertraline Hcl 25 Mg Tablet) 75 mg PO BEDTIME BASIL Last Admin: 06/24/22 20:42 Dose: 75 mg Allergies Allergies Allergy/AdvReac Type Severity Reaction Status Date / Time No Known Allergies Allergy Verified 10/27/21 12:12 Assessment & Plan Assessment & Plan (1) MDD (major depressive disorder), single episode, severe with psychosis: Status: Acute Code(s): F32.3 - Major depressive disorder, single episode, severe with psychotic features Plan Latoya is a 51 y.o. female who carries a dx of MDD with psychotic features. She presented to [facility] [place]22 due to command AH, increased depression. Precipitating fx include anniversary of her ?s in 06/2021 due to kidney issues. Pt known to [facility] [place] prev [place], last on M5 12/30/21-01/10/22. She has historically been stabilized on seroquel 400 mg QHS, lithium 450 mg HS, and zoloft 50 mg. Currently pt says she has been adherent with her meds but says she is only taking half doses of her bedtime meds due to feeling they are ?too strong.? Li level <0.1 on 06/19/22. Utox negative, no alcohol abuse. Plan: Pt does not appear adherent on lithium based on Li level, non adherent with lab work. Will d/c trazodone due to sedation. Re-increase seroquel to 400 mg HS and increase zoloft to 75 mg daily for depression. Start seroquel 25 mg BID PRN for anxiety. Q15 min safety checks, CV Monitor response to medications. Monitor for safety in the milieu. Discharge on stabilization. Patient seen. Chart reviewed. Discussed with team. Obtain collateral contact info?as needed 06/21 No changes, monitor meds for benefit, encouraged to use PRN seroquel for anxiety 06/23 switch gradually to risperidone. 06/24 decrease seroquel from 600mg po qhs to 300mg po qhs, start risperidone 1mg po BID. will try to taper off seroquel. I spent minutes with the patient and/or on the patient floor today, greater than?50% of which was spent counseling/coordinating care. Reason for contiued inpatient stay Substantial Risk for: harm to self and inability to function
[2022-06-24] MEDS: QUEtiapine Fumarate 25 MG TABLET PO (16:59)
[2022-06-24 20:35] VITALS: BP 125/72; PULSE 95; RESP 16; TEMP 36.5; O2SAT 96
[2022-06-24] MEDS: Sertraline HCL 25 MG TABLET 75 MG PO (20:42)
[2022-06-24] MEDS: risperiDONE 1 MG TABLET PO (20:42)
[2022-06-24] MEDS: QUEtiapine Fumarate 300 MG TABLET PO (20:43)
[2022-06-25 06:00] VITALS: BP 132/72; PULSE 98; RESP 18; TEMP 36.7; O2SAT 98
[2022-06-25] MEDS: QUEtiapine Fumarate 25 MG TABLET PO (09:22)
[2022-06-25] MEDS: Metoprolol Succinate ER 12.5 MG HALFTAB.ER.24H PO ×2 (09:22→21:05)
[2022-06-25] MEDS: cephALEXin 500 MG CAPSULE PO ×2 (09:22→21:03)
[2022-06-25] MEDS: amLODIPine Besylate 10 MG TABLET PO (09:22)
[2022-06-25] MEDS: risperiDONE 1 MG TABLET PO ×2 (09:23→21:03)
--- NOTE | 2022-06-25 14:18 | P.PNPSI_ITS ---
Subjective Subjective Date of Service: 06/25/22 Reason For Visit: Psychosis Subjective Notes: Conditional Voluntary Interim History: Pt reports hearing voices still maybe a bit less than before. However, she continues to report that voices tell her to hurt herself or others. She reports fair sleep- some difficulty falling asleep but able to sleep thereafter. No b ehavioral concerns. Medication Compliance: Yes Side effects from medications: No Attending Groups: No Review of Systems Constitutional: Denies chills and Denies fever(s) Eyes: Denies blurry vision and Denies change in vision Reports system reviewed and no additional complaints, except as documented, Denies vertigo and Denies dizziness Cardiovascular: Reports no additional cardiovascular complaints and Denies syncope Respiratory: Denies cough and Denies wheezing Denies vertigo, Denies dizziness and Denies syncope Psychiatric: Reports anxiety, Reports change in appetite and Reports suicidal ideation Allergic/Immunologic: Denies wheezing Mental Status Exam Mental Status Exam Narrative: Appearance: wearing hospital gown, fair hygiene, in NAD Behavior: friendly. Psychomotor: no agitation or retardation noted Speech: clear, normal rate/rhythm/volume, spontaneous TP: linear TC: hearing voices, distress by voices Mood: anxious Affect: congruent SI: passive HI: no AH: CAH telling her to hurt other people and herself. VH: none Delusions: no overt but distress by voices Insight/judgment: fair x 2. Memory/cog: alert, oriented x 3. Diagnostics Vital Signs (24Hr): Vital Signs - 24 hr 06/25/22 21:00 06/26/22 09:02 Temperature 97.6 F 97.3 F Pulse Rate 97 100 Respiratory Rate 16 Blood Pressure 113/66 118/69 Pulse Oximetry 96 97 Oxygen Delivery Method Room Air Room Air BMI result Body Mass Index 34.4 Labs Results: 06/19/22 13:36 06/19/22 13:36 Medications Medications Current Medications Acetaminophen (Acetaminophen 325 Mg Tablet) 650 mg PO Q6H PRN PRN Reason: Headache/Pain Mild Scale (1-3) Last Admin: 06/25/22 21:05 Dose: 650 mg Al Hydroxide/Mg Hydroxide (Magnesium Hydrox/Alum Hydrox 30 Ml Oral.Susp) 30 ml PO Q6H PRN PRN Reason: Heartburn/Nausea Amlodipine Besylate (Amlodipine Besylate 10 Mg Tablet) 10 mg PO DAILY [facility]; Protocol Last Admin: 06/26/22 09:04 Dose: 10 mg Cephalexin HCl (Cephalexin 500 Mg Capsule) 500 mg PO Q12H [facility] Stop: 06/27/22 20:59 Last Admin: 06/26/22 09:04 Dose: 500 mg Hydroxyzine HCl (Hydroxyzine Hcl 25 Mg Tablet) 25 mg PO Q6H PRN PRN Reason: Anxiety Magnesium Hydroxide (Milk Of Magnesia 30 Ml Oral.Susp) 30 ml PO DAILY PRN PRN Reason: Constipation Metoprolol Succinate (Metoprolol Succinate Er 12.5 Mg Halftab.Er.24h) 12.5 mg PO BID [facility]; Protocol Last Admin: 06/26/22 09:04 Dose: 12.5 mg Quetiapine Fumarate (Quetiapine Fumarate 25 Mg Tablet) 25 mg PO BID PRN PRN Reason: anxiety Last Admin: 06/25/22 09:22 Dose: 25 mg Quetiapine Fumarate (Quetiapine Fumarate 50 Mg Tablet) 150 mg PO BEDTIME [facility] Sertraline HCl (Sertraline Hcl 25 Mg Tablet) 75 mg PO BEDTIME [facility] Last Admin: 06/25/22 21:04 Dose: 75 mg Allergies Allergies Allergy/AdvReac Type Severity Reaction Status Date / Time No Known Allergies Allergy Verified 10/27/21 12:12 Assessment & Plan Assessment & Plan (1) MDD (major depressive disorder), single episode, severe with psychosis: Status: Acute Code(s): F32.3 - Major depressive disorder, single episode, severe with psychotic features Plan Latoya is a 51 y.o. female who carries a dx of MDD with psychotic features. She presented to [facility] ED on 06/19/22 due to command AH, increased depression. Precipitating fx include anniversary of her ?s in 06/2021 due to kidney issues. Pt known to [facility] from two prev admissions, last on M5 12/30/21- 01/10/22. She has historically been stabilized on seroquel 400 mg QHS, lithium 450 mg HS, and zoloft 50 mg. Currently pt says she has been adherent with her meds but says she is only taking half doses of her bedtime meds due to feeling they are ?too strong.? Li level <0.1 on 06/19/22. Utox negative, no alcohol abuse. Plan: Pt does not appear adherent on lithium based on Li level, non adherent with lab work. Will d/c trazodone due to sedation. Re-increase seroquel to 400 mg HS and increase zoloft to 75 mg daily for depression. Start seroquel 25 mg BID PRN for anxiety. Q15 min safety checks, CV Monitor response to medications. Monitor for safety in the milieu. Discharge on stabilization. Patient seen. Chart reviewed. Discussed with team. Obtain collateral contact info?as needed 06/21 No changes, monitor meds for benefit, encouraged to use PRN seroquel for anxiety 06/23 switch gradually to risperidone. 06/24 decrease seroquel from 600mg po qhs to 300mg po qhs, start risperidone 1mg po BID. will try to taper off seroquel. 06/25 continue current medications. I spent minutes with the patient and/or on the patient floor today, greater than?50% of which was spent counseling/coordinating care. Reason for contiued inpatient stay Substantial Risk for: harm to self
[2022-06-25 21:00] VITALS: BP 113/66; PULSE 97; RESP 16; TEMP 36.4; O2SAT 96
[2022-06-25] MEDS: QUEtiapine Fumarate 300 MG TABLET PO (21:04)
[2022-06-25] MEDS: Sertraline HCL 25 MG TABLET 75 MG PO (21:04)
[2022-06-25] MEDS: Acetaminophen 325 MG TABLET 650 MG PO (21:05)
[2022-06-26 07:00] VITALS: BMI 34.4
[2022-06-26 09:02] VITALS: BP 118/69; PULSE 100; TEMP 36.3; O2SAT 97
[2022-06-26] MEDS: amLODIPine Besylate 10 MG TABLET PO (09:04)
[2022-06-26] MEDS: Metoprolol Succinate ER 12.5 MG HALFTAB.ER.24H PO ×2 (09:04→21:19)
[2022-06-26] MEDS: cephALEXin 500 MG CAPSULE PO ×2 (09:04→21:19)
[2022-06-26] MEDS: risperiDONE 1 MG TABLET PO (09:04)
--- NOTE | 2022-06-26 12:24 | HO.PSYCHPN ---
Subjective Subjective Date of Service: 06/26/22 Reason For Visit: Psychosis Subjective Notes: Conditional Voluntary Interim History: Pt continues to report hearing and that voices are telling her to harm herself. She does report some improvement with seroquel. She reports fair sleep- some difficulty falling asleep but able to sleep thereafter. No behavioral concerns. She reports bilat hip pain that radiates to both legs, sharp pin and needle sensation which she states is new in past 2 days Medication Compliance: Yes Side effects from medications: No Review of Systems Constitutional: Denies chills and Denies fever(s) Eyes: Denies blurry vision and Denies change in vision Reports system reviewed and no additional complaints, except as documented, Denies vertigo and Denies dizziness Cardiovascular: Reports no additional cardiovascular complaints and Denies syncope Respiratory: Denies cough and Denies wheezing Denies vertigo, Denies dizziness and Denies syncope Psychiatric: Reports anxiety, Reports change in appetite and Reports suicidal ideation Allergic/Immunologic: Denies wheezing Mental Status Exam Mental Status Exam Narrative: Appearance: wearing hospital gown, fair hygiene, in NAD Behavior: friendly. Psychomotor: no agitation or retardation noted Speech: clear, normal rate/rhythm/volume, spontaneous TP: linear TC: hearing voices, distress by voices Mood: anxious Affect: congruent SI: passive HI: no AH: CAH telling her to hurt other people and herself. VH: none Delusions: no overt but distress by voices Insight/judgment: fair x 2. Memory/cog: alert, oriented x 3. Diagnostics Vital Signs (24Hr): Vital Signs - 24 hr 06/25/22 21:00 06/26/22 09:02 Temperature 97.6 F 97.3 F Pulse Rate 97 100 Respiratory Rate 16 Blood Pressure 113/66 118/69 Pulse Oximetry 96 97 Oxygen Delivery Method Room Air Room Air BMI result Body Mass Index 34.4 Labs Results: 06/19/22 13:36 06/19/22 13:36 Medications Medications Current Medications Acetaminophen (Acetaminophen 325 Mg Tablet) 650 mg PO Q6H PRN PRN Reason: Headache/Pain Mild Scale (1-3) Last Admin: 06/25/22 21:05 Dose: 650 mg Al Hydroxide/Mg Hydroxide (Magnesium Hydrox/Alum Hydrox 30 Ml Oral.Susp) 30 ml PO Q6H PRN PRN Reason: Heartburn/Nausea Amlodipine Besylate (Amlodipine Besylate 10 Mg Tablet) 10 mg PO DAILY [facility]; Protocol Last Admin: 06/26/22 09:04 Dose: 10 mg Cephalexin HCl (Cephalexin 500 Mg Capsule) 500 mg PO Q12H [facility] Stop: 06/27/22 20:59 Last Admin: 06/26/22 09:04 Dose: 500 mg Hydroxyzine HCl (Hydroxyzine Hcl 25 Mg Tablet) 25 mg PO Q6H PRN PRN Reason: Anxiety Magnesium Hydroxide (Milk Of Magnesia 30 Ml Oral.Susp) 30 ml PO DAILY PRN PRN Reason: Constipation Metoprolol Succinate (Metoprolol Succinate Er 12.5 Mg Halftab.Er.24h) 12.5 mg PO BID [facility]; Protocol Last Admin: 06/26/22 09:04 Dose: 12.5 mg Quetiapine Fumarate (Quetiapine Fumarate 25 Mg Tablet) 25 mg PO BID PRN PRN Reason: anxiety Last Admin: 06/25/22 09:22 Dose: 25 mg Quetiapine Fumarate (Quetiapine Fumarate 50 Mg Tablet) 150 mg PO BEDTIME [facility] Risperidone (Risperidone 1 Mg Tablet) 1 mg PO DAILY [facility] Risperidone (Risperidone 2 Mg Tablet) 2 mg PO BEDTIME [facility] Sertraline HCl (Sertraline Hcl 25 Mg Tablet) 75 mg PO BEDTIME [facility] Last Admin: 06/25/22 21:04 Dose: 75 mg Allergies Allergies Allergy/AdvReac Type Severity Reaction Status Date / Time No Known Allergies Allergy Verified 10/27/21 12:12 Assessment & Plan Assessment & Plan (1) MDD (major depressive disorder), single episode, severe with psychosis: Status: Acute Code(s): F32.3 - Major depressive disorder, single episode, severe with psychotic features Plan Latoya is a 51 y.o. female who carries a dx of MDD with psychotic features. She presented to [facility] on 06/19/22 due to command AH, increased depression. Precipitating fx include anniversary of her ?s in 06/2021 due to kidney issues. Pt known to [facility] from two prev admissions, last on [facility] 12/30/21-01/10/22. She has historically been stabilized on seroquel 400 mg QHS, lithium 450 mg HS, and zoloft 50 mg. Currently pt says she has been adherent with her meds but says she is only taking half doses of her bedtime meds due to feeling they are ?too strong.? Li level <0.1 on 06/19/22. Utox negative, no alcohol abuse. Plan: Pt does not appear adherent on lithium based on Li level, non adherent with lab work. Will d/c trazodone due to sedation. Re-increase seroquel to 400 mg HS and increase zoloft to 75 mg daily for depression. Start seroquel 25 mg BID PRN for anxiety. Q15 min safety checks, CV Monitor response to medications. Monitor for safety in the milieu. Discharge on stabilization. Patient seen. Chart reviewed. Discussed with team. Obtain collateral contact info?as needed 06/21 No changes, monitor meds for benefit, encouraged to use PRN seroquel for anxiety 06/23 switch gradually to risperidone. 06/24 decrease seroquel from 600mg po qhs to 300mg po qhs, start risperidone 1mg po BID. will try to taper off seroquel. 06/25 continue current medications. 06/26 increase risperidone to 1mg po daily and 2mg po qhs. lower seroquel to 150mg po qhs. lori consult JAGUAR re: leg pain. I spent minutes with the patient and/or on the patient floor today, greater than?50% of which was spent counseling/coordinating care. Reason for contiued inpatient stay Substantial Risk for: inability to function
[2022-06-26] MEDS: Sertraline HCL 25 MG TABLET 75 MG PO (16:33)
[2022-06-26 21:10] VITALS: BP 122/73; PULSE 88; RESP 18; TEMP 36.6; O2SAT 98
[2022-06-26] MEDS: risperiDONE 2 MG TABLET PO (21:19)
[2022-06-26] MEDS: QUEtiapine Fumarate 25 MG TABLET PO (21:19)
[2022-06-26] MEDS: Acetaminophen 325 MG TABLET 650 MG PO (21:19)
[2022-06-26] MEDS: QUEtiapine Fumarate 50 MG TABLET 150 MG PO (21:20)
[2022-06-27 08:00] VITALS: BP 122/70; PULSE 97; TEMP 36.6; O2SAT 97
[2022-06-27] MEDS: Sertraline HCL 25 MG TABLET 75 MG PO (08:49)
[2022-06-27] MEDS: Metoprolol Succinate ER 12.5 MG HALFTAB.ER.24H PO ×2 (08:50→20:09)
[2022-06-27] MEDS: risperiDONE 1 MG TABLET PO (08:50)
[2022-06-27] MEDS: amLODIPine Besylate 10 MG TABLET PO (08:50)
[2022-06-27] MEDS: cephALEXin 500 MG CAPSULE PO (08:50)
--- NOTE | 2022-06-27 12:49 | P.PNPSI_ITS ---
Subjective Subjective Date of Service: 06/27/22 Reason For Visit: Psychosis Subjective Notes: Conditional Voluntary Interim History: Pt reports voices are less but continue to be CAH, telling her to harm herself. She also reports seeing her dog on the unit, some insight that this is not the case. She reports passive SI, no plan or report. Pt visible on the unit, taking meds as prescribed. No side effects. Medication Compliance: Yes Side effects from medications: No Attending Groups: Intermittent Review of Systems Review of Systems General no headache no dizziness, no fevers no chills CVS no chest pain Skin no rash Musculoskeletal no other joint pains Yes all other systems are reviewed and are negative Constitutional: Denies chills and Denies fever(s) Eyes: Denies blurry vision and Denies change in vision Reports system reviewed and no additional complaints, except as documented, Denies vertigo and Denies dizziness Cardiovascular: Reports no additional cardiovascular complaints and Denies syncope Respiratory: Denies cough and Denies wheezing Denies vertigo, Denies dizziness and Denies syncope Psychiatric: Reports anxiety, Reports change in appetite and Reports suicidal ideation Allergic/Immunologic: Denies wheezing Mental Status Exam Mental Status Exam Narrative: Appearance: wearing hospital gown, fair hygiene, in NAD Behavior: friendly. Psychomotor: no agitation or retardation noted Speech: clear, normal rate/rhythm/volume, spontaneous TP: linear TC: hearing voices, distress by voices Mood: anxious Affect: congruent SI: passive HI: no AH: CAH telling her to hurt other people and herself. VH: none Delusions: no overt but distress by voices Insight/judgment: fair x 2. Memory/cog: alert, oriented x 3. Diagnostics Vital Signs (24Hr): Vital Signs - 24 hr 06/27/22 08:00 06/27/22 20:05 Temperature 98 F 97.7 F Pulse Rate 97 89 Respiratory Rate 18 Blood Pressure 122/70 123/73 Pulse Oximetry 97 98 Oxygen Delivery Method Room Air BMI result Body Mass Index 34.4 Labs Results: 06/19/22 13:36 06/19/22 13:36 Medications Medications Current Medications Acetaminophen (Acetaminophen 325 Mg Tablet) 650 mg PO Q6H PRN PRN Reason: Headache/Pain Mild Scale (1-3) Last Admin: 06/26/22 21:19 Dose: 650 mg Al Hydroxide/Mg Hydroxide (Magnesium Hydrox/Alum Hydrox 30 Ml Oral.Susp) 30 ml PO Q6H PRN PRN Reason: Heartburn/Nausea Amlodipine Besylate (Amlodipine Besylate 10 Mg Tablet) 10 mg PO DAILY [facility]; Protocol Last Admin: 06/27/22 08:50 Dose: 10 mg Hydroxyzine HCl (Hydroxyzine Hcl 25 Mg Tablet) 25 mg PO Q6H PRN PRN Reason: Anxiety Last Admin: 06/27/22 20:10 Dose: 25 mg Ibuprofen (Ibuprofen 600 Mg Tablet) 600 mg PO BID [facility] Last Admin: 06/27/22 20:09 Dose: 600 mg Magnesium Hydroxide (Milk Of Magnesia 30 Ml Oral.Susp) 30 ml PO DAILY PRN PRN Reason: Constipation Metoprolol Succinate (Metoprolol Succinate Er 12.5 Mg Halftab.Er.24h) 12.5 mg PO BID [facility]; Protocol Last Admin: 06/27/22 20:09 Dose: 12.5 mg Quetiapine Fumarate (Quetiapine Fumarate 25 Mg Tablet) 25 mg PO BID PRN PRN Reason: anxiety Last Admin: 06/27/22 20:10 Dose: 25 mg Quetiapine Fumarate (Quetiapine Fumarate 50 Mg Tablet) 150 mg PO BEDTIME [facility] Last Admin: 06/26/22 21:20 Dose: 150 mg Risperidone (Risperidone 1 Mg Tablet) 1 mg PO DAILY [facility] Last Admin: 06/27/22 08:50 Dose: 1 mg Risperidone (Risperidone 2 Mg Tablet) 2 mg PO BEDTIME [facility] Last Admin: 06/26/22 21:19 Dose: 2 mg Sertraline HCl (Sertraline Hcl 25 Mg Tablet) 75 mg PO DAILY [facility] Last Admin: 06/27/22 08:49 Dose: 75 mg Allergies Allergies Allergy/AdvReac Type Severity Reaction Status Date / Time No Known Allergies Allergy Verified 10/27/21 12:12 Assessment & Plan Assessment & Plan (1) MDD (major depressive disorder), single episode, severe with psychosis: Status: Acute Code(s): F32.3 - Major depressive disorder, single episode, severe with psychotic feat ures Plan 06/27 continue current medications. I spent minutes with the patient and/or on the patient floor today, greater than?50% of which was spent counseling/coordinating care. Reason for contiued inpatient stay Substantial Risk for: harm to self and inability to function
--- NOTE | 2022-06-27 15:51 | HO.PM.IMPN ---
Subjective Subjective Date of Service: 06/27/22 Interval History: Consulted by psych provider Alma Kaur for bilateral hip pain with radiation to legs As per patient she developed bilateral hip pain 2-3 days ago worse at nighttime feels like stabbing pain no pins and needles pain radiates down to knees worse on lying on side of hips, denies fever chills, no urinary symptoms, denies lower back pain, denies injury, denies similar symptoms in the past Review of Systems General no headache no dizziness, no fevers no chills CVS no chest pain Skin no rash Musculoskeletal no other joint pains Review of Systems: Yes all other systems are reviewed and are negative Physical Exam Vital Signs: Vital Signs: Last Vital Signs Temp 98 F 06/27/22 08:00 Pulse 97 06/27/22 08:00 Resp 18 06/26/22 21:10 BP 122/70 06/27/22 08:00 Pulse Ox 97 06/27/22 08:00 O2 Del Method 06/26/22 21:10 BMI result Body Mass Index 34.4 Const: Other: General awake alert x3, in no acute distress. Neck supple no JVD. CVS regular rate rhythm, Respiratory lungs clear to auscultation, no respiratory distress Gastrointestinal abdomen soft, nontender, bowel sounds audible Extremities no edema. Neuro nonfocal , steady walk Skin no rash Musculoskeletal mild tenderness at site of greater trochanter , good range of motion at hip, no tenderness L-spine Objective Data Active Medications Acetaminophen (Acetaminophen 325 Mg Tablet) 650 mg PO Q6H PRN PRN Reason: Headache/Pain Mild Scale (1-3) Last Admin: 06/26/22 21:19 Dose: 650 mg Documented By: SHAWNEE Al Hydroxide/Mg Hydroxide (Magnesium Hydrox/Alum Hydrox 30 Ml Oral.Susp) 30 ml PO Q6H PRN PRN Reason: Heartburn/Nausea Amlodipine Besylate (Amlodipine Besylate 10 Mg Tablet) 10 mg PO DAILY [facility]; Protocol Last Admin: 06/27/22 08:50 Dose: 10 mg Documented By: DEXTER Cephalexin HCl (Cephalexin 500 Mg Capsule) 500 mg PO Q12H [facility] Stop: 06/27/22 20:59 Last Admin: 06/27/22 08:50 Dose: 500 mg Documented By: DEXTER Hydroxyzine HCl (Hydroxyzine Hcl 25 Mg Tablet) 25 mg PO Q6H PRN PRN Reason: Anxiety Magnesium Hydroxide (Milk Of Magnesia 30 Ml Oral.Susp) 30 ml PO DAILY PRN PRN Reason: Constipation Metoprolol Succinate (Metoprolol Succinate Er 12.5 Mg Halftab.Er.24h) 12.5 mg PO BID [facility]; Protocol Last Admin: 06/27/22 08:50 Dose: 12.5 mg Documented By: DEXTER Quetiapine Fumarate (Quetiapine Fumarate 25 Mg Tablet) 25 mg PO BID PRN PRN Reason: anxiety Last Admin: 06/26/22 21:19 Dose: 25 mg Documented By: SHAWNEE Quetiapine Fumarate (Quetiapine Fumarate 50 Mg Tablet) 150 mg PO BEDTIME [facility] Last Admin: 06/26/22 21:20 Dose: 150 mg Documented By: SHAWNEE Risperidone (Risperidone 1 Mg Tablet) 1 mg PO DAILY [facility] Last Admin: 06/27/22 08:50 Dose: 1 mg Documented By: DEXTER Risperidone (Risperidone 2 Mg Tablet) 2 mg PO BEDTIME [facility] Last Admin: 06/26/22 21:19 Dose: 2 mg Documented By: SHAWNEE Sertraline HCl (Sertraline Hcl 25 Mg Tablet) 75 mg PO DAILY [facility] Last Admin: 06/27/22 08:49 Dose: 75 mg Documented By: DEXTER Labs CBC & Chem 7: 06/19/22 13:36 06/19/22 13:36 Assessment and Plan (1) Bilateral hip pain: Status: Acute Plan Acute Bilateral lateral hip pain likely greater trochanteric pain syndrome/trochanteric bursitis Pain worsens with sleeping on affected side, tender on the outside hip bones Recommended NSAIDs, weight reduction and ice If pain persist may need corticosteroid injection Thank you for allowing us to participate in the care of this patient Time Spent With Patient Time: Total time managing care of this patient today ____ minutes. Quality Stroke Does the patient have a stroke diagnosis?: No VTE Prior VTE?: No VTE Risk Level:: Medical - low VTE Device Contraindication: Treatment Not Indicated VTE Drug Contraindication: Treatment Not Indicated
[2022-06-27 20:05] VITALS: BP 123/73; PULSE 89; RESP 18; TEMP 36.5; O2SAT 98
[2022-06-27] MEDS: Ibuprofen 600 MG TABLET PO (20:09)
[2022-06-27] MEDS: hydrOXYzine HCL 25 MG TABLET PO (20:10)
[2022-06-27] MEDS: QUEtiapine Fumarate 25 MG TABLET PO (20:10)
[2022-06-27] MEDS: QUEtiapine Fumarate 50 MG TABLET 150 MG PO (21:56)
[2022-06-27] MEDS: risperiDONE 2 MG TABLET PO (21:57)
[2022-06-28 09:00] VITALS: BP 112/62; PULSE 102; RESP 16; TEMP 36.7; O2SAT 112
[2022-06-28] MEDS: Sertraline HCL 25 MG TABLET 75 MG PO (09:11)
[2022-06-28] MEDS: amLODIPine Besylate 10 MG TABLET PO (09:11)
[2022-06-28] MEDS: Ibuprofen 600 MG TABLET PO (09:11)
[2022-06-28] MEDS: risperiDONE 1 MG TABLET PO (09:11)
[2022-06-28] MEDS: Metoprolol Succinate ER 12.5 MG HALFTAB.ER.24H PO ×2 (09:11→20:38)
[2022-06-28] MEDS: Magnesium Hydrox/Alum Hydrox 30 ML ORAL.SUSP PO (09:38)
--- NOTE | 2022-06-28 13:52 | P.PNPSI_ITS ---
Subjective Subjective Date of Service: 06/28/22 Reason For Visit: Psychosis Medical Problems Affecting Mental Status: No Interim History: Met with patient. Chart reviewed. Discussed with Nursing. Interviewed with [employer] associate services 0. [id number]. Patient reports that hallucinations have decreased in frequency. Also reports much less thoughts of suicide. No plans or intent. Also reports mood brighter much less anxious. Feels the medications have been very helpful. Sleep okay. Motivation and appetite okay. No medication concerns. Medication Compliance: Yes Side effects from medications: No Attending Groups: Intermittent Review of Systems Acute medical concerns: No Review of Systems Review of Systems Unremarkable Mental Status Exam Mental Status Exam Narrative: Pleasant. Engaged. Organized. Less depressed and anxious. Intermittent SI but no plans or intent. Intermittent hallucinations but non distressing. No delusions. Insight and judgment okay Diagnostics Vital Signs (24Hr): Vital Signs - 24 hr 06/27/22 20:05 06/28/22 09:00 Temperature 97.7 F 98.1 F Pulse Rate 89 102 H Respiratory Rate 18 16 Blood Pressure 123/73 112/62 Pulse Oximetry 98 112 H Oxygen Delivery Method Room Air Room Air BMI result Body Mass Index 34.4 Labs Results: 06/19/22 13:36 06/19/22 13:36 Medications Medications Current Medications Acetaminophen (Acetaminophen 325 Mg Tablet) 650 mg PO Q6H PRN PRN Reason: Headache/Pain Mild Scale (1-3) Last Admin: 06/26/22 21:19 Dose: 650 mg Al Hydroxide/Mg Hydroxide (Magnesium Hydrox/Alum Hydrox 30 Ml Oral.Susp) 30 ml PO Q6H PRN PRN Reason: Heartburn/Nausea Last Admin: 06/28/22 09:38 Dose: 30 ml Amlodipine Besylate (Amlodipine Besylate 10 Mg Tablet) 10 mg PO DAILY [facility]; Protocol Last Admin: 06/28/22 09:11 Dose: 10 mg Hydroxyzine HCl (Hydroxyzine Hcl 25 Mg Tablet) 25 mg PO Q6H PRN PRN Reason: Anxiety Last Admin: 06/27/22 20:10 Dose: 25 mg Ibuprofen (Ibuprofen 600 Mg Tablet) 600 mg PO BID [facility] Last Admin: 06/28/22 09:11 Dose: 600 mg Magnesium Hydroxide (Milk Of Magnesia 30 Ml Oral.Susp) 30 ml PO DAILY PRN PRN Reason: Constipation Metoprolol Succinate (Metoprolol Succinate Er 12.5 Mg Halftab.Er.24h) 12.5 mg PO BID [facility]; Protocol Last Admin: 06/28/22 09:11 Dose: 12.5 mg Quetiapine Fumarate (Quetiapine Fumarate 25 Mg Tablet) 25 mg PO BID PRN PRN Reason: anxiety Last Admin: 06/27/22 20:10 Dose: 25 mg Quetiapine Fumarate (Quetiapine Fumarate 50 Mg Tablet) 150 mg PO BEDTIME [facility] Last Admin: 06/27/22 21:56 Dose: 150 mg Risperidone (Risperidone 1 Mg Tablet) 1 mg PO DAILY [facility] Last Admin: 06/28/22 09:11 Dose: 1 mg Risperidone (Risperidone 2 Mg Tablet) 2 mg PO BEDTIME [facility] Last Admin: 06/27/22 21:57 Dose: 2 mg Sertraline HCl (Sertraline Hcl 25 Mg Tablet) 75 mg PO DAILY [facility] Last Admin: 06/28/22 09:11 Dose: 75 mg Allergies Allergies Allergy/AdvReac Type Severity Reaction Status Date / Time No Known Allergies Allergy Verified 10/27/21 12:12 Assessment & Plan Assessment & Plan (1) MDD (major depressive disorder), single episode, severe with psychosis: Status: Acute Code(s): F32.3 - Major depressive disorder, single episode, severe with psychotic features Plan 06/27 continue current medications. 06/28/2022: No changes to current plan I spent minutes with the patient and/or on the patient floor today, greater than?50% of which was spent counseling/coordinating care. Reason for contiued inpatient stay Substantial Risk for: harm to self
[2022-06-28] MEDS: risperiDONE 2 MG TABLET PO (20:39)
[2022-06-28 20:42] VITALS: BP 139/80; PULSE 89; RESP 18; TEMP 36.4; O2SAT 96
[2022-06-28] MEDS: QUEtiapine Fumarate 50 MG TABLET 150 MG PO (20:42)
[2022-06-28] MEDS: hydrOXYzine HCL 25 MG TABLET PO (20:42)
[2022-06-29 09:00] VITALS: BP 103/66; PULSE 104; RESP 16; TEMP 36.6; O2SAT 98
[2022-06-29] MEDS: risperiDONE 1 MG TABLET PO (09:04)
[2022-06-29] MEDS: Ibuprofen 600 MG TABLET PO ×2 (09:04→21:13)
[2022-06-29] MEDS: Sertraline HCL 25 MG TABLET 75 MG PO (09:04)
[2022-06-29] MEDS: amLODIPine Besylate 10 MG TABLET PO (09:05)
[2022-06-29] MEDS: Metoprolol Succinate ER 12.5 MG HALFTAB.ER.24H PO ×2 (09:05→21:13)
[2022-06-29] MEDS: Omeprazole 20 MG CAPSULE.DR PO (12:36)
--- NOTE | 2022-06-29 13:26 | HO.PSYCHPN ---
Subjective Subjective Date of Service: 06/29/22 Reason For Visit: Psychosis Interim History: Met with patient. Chart reviewed. Discussed with Nursing. Interviewed with processing associate services #[id number]. Patient continues to report that hallucinations have decreased in frequency. Also reports much less thoughts of suicide. No plans or intent. Also reports mood brighter much less anxious. Reports being hopeful that medications will continue to help. Has been attending groups. Sleep okay. Motivation and appetite okay. No medication concerns. Medication Compliance: Yes Side effects from medications: No Attending Groups: Yes Review of Systems Acute medical concerns: No Review of Systems Review of Systems Unremarkable Mental Status Exam Mental Status Exam Narrative: Pleasant. Engaged. Organized. Less depressed and anxious. Intermittent SI but no plans or intent. Intermittent hallucinations but non distressing. No delusions. Insight and judgment okay Diagnostics Vital Signs (24Hr): Vital Signs - 24 hr 06/28/22 20:42 06/29/22 09:00 Temperature 97.6 F 97.9 F Pulse Rate 89 104 H Respiratory Rate 18 16 Blood Pressure 139/80 103/66 Pulse Oximetry 96 98 Oxygen Delivery Method Room Air Room Air BMI result Body Mass Index 34.4 Labs Results: 06/19/22 13:36 06/19/22 13:36 Medications Medications Current Medications Acetaminophen (Acetaminophen 325 Mg Tablet) 650 mg PO Q6H PRN PRN Reason: Headache/Pain Mild Scale (1-3) Last Admin: 06/26/22 21:19 Dose: 650 mg Al Hydroxide/Mg Hydroxide (Magnesium Hydrox/Alum Hydrox 30 Ml Oral.Susp) 30 ml PO Q6H PRN PRN Reason: Heartburn/Nausea Last Admin: 06/28/22 09:38 Dose: 30 ml Amlodipine Besylate (Amlodipine Besylate 10 Mg Tablet) 10 mg PO DAILY [facility]; Protocol Last Admin: 06/29/22 09:05 Dose: 10 mg Hydroxyzine HCl (Hydroxyzine Hcl 25 Mg Tablet) 25 mg PO Q6H PRN PRN Reason: Anxiety Last Admin: 06/28/22 20:42 Dose: 25 mg Ibuprofen (Ibuprofen 600 Mg Tablet) 600 mg PO BID [facility] Last Admin: 06/29/22 09:04 Dose: 600 mg Magnesium Hydroxide (Milk Of Magnesia 30 Ml Oral.Susp) 30 ml PO DAILY PRN PRN Reason: Constipation Metoprolol Succinate (Metoprolol Succinate Er 12.5 Mg Halftab.Er.24h) 12.5 mg PO BID [facility]; Protocol Last Admin: 06/29/22 09:05 Dose: 12.5 mg Omeprazole (Omeprazole 20 Mg Capsule.Dr) 20 mg PO DAILY@0630 [facility] Last Admin: 06/29/22 12:36 Dose: 20 mg Quetiapine Fumarate (Quetiapine Fumarate 25 Mg Tablet) 25 mg PO BID PRN PRN Reason: anxiety Last Admin: 06/27/22 20:10 Dose: 25 mg Quetiapine Fumarate (Quetiapine Fumarate 50 Mg Tablet) 150 mg PO BEDTIME [facility] Last Admin: 06/28/22 20:42 Dose: 150 mg Risperidone (Risperidone 1 Mg Tablet) 1 mg PO DAILY [facility] Last Admin: 06/29/22 09:04 Dose: 1 mg Risperidone (Risperidone 2 Mg Tablet) 2 mg PO BEDTIME [facility] Last Admin: 06/28/22 20:39 Dose: 2 mg Sertraline HCl (Sertraline Hcl 25 Mg Tablet) 75 mg PO DAILY [facility] Last Admin: 06/29/22 09:04 Dose: 75 mg Allergies Allergies Allergy/AdvReac Type Severity Reaction Status Date / Time No Known Allergies Allergy Verified 10/27/21 12:12 Assessment & Plan Assessment & Plan (1) MDD (major depressive disorder), single episode, severe with psychosis: Status: Acute Code(s): F32.3 - Major depressive disorder, single episode, severe with psychotic features Plan 06/27 continue current medications. 06/29/2022: No changes to current plan I spent minutes with the patient and/or on the patient floor today, greater than?50% of which was spent counseling/coordinating care. Reason for contiued inpatient stay Substantial Risk for: harm to self
[2022-06-29 21:11] VITALS: BP 120/68; PULSE 86; RESP 16; TEMP 36.6; O2SAT 96
[2022-06-29] MEDS: QUEtiapine Fumarate 50 MG TABLET 150 MG PO (21:13)
[2022-06-29] MEDS: risperiDONE 2 MG TABLET PO (21:13)
[2022-06-30 09:15] VITALS: BP 126/69; PULSE 98; TEMP 36.4; O2SAT 97
[2022-06-30] MEDS: Sertraline HCL 25 MG TABLET 75 MG PO (09:35)
[2022-06-30] MEDS: Metoprolol Succinate ER 12.5 MG HALFTAB.ER.24H PO ×2 (09:36→21:12)
[2022-06-30] MEDS: amLODIPine Besylate 10 MG TABLET PO ×2 (09:36→10:00)
[2022-06-30] MEDS: risperiDONE 1 MG TABLET PO (09:37)
[2022-06-30] MEDS: Ibuprofen 600 MG TABLET PO (09:37)
[2022-06-30] MEDS: Omeprazole 20 MG CAPSULE.DR PO (09:37)
--- NOTE | 2022-06-30 12:12 | HO.PSYCHPN ---
Subjective Subjective Date of Service: 06/30/22 Reason For Visit: Psychosis Subjective Notes: Conditional Voluntary Interim History: Pt reports sleeping fairly well, some difficulty falling asleep but able to sleep through the night. She reports eating well. She continues to report hearing voices but less. She reports passive SI but no plan or intent to harm herself. She reports she sees at times her dog, walking on the unit, knows this is not the case but reports she can see it. Per nursing, pt more visible on the unit, social with peers, attends some groups. Medication Compliance: Yes Review of Systems Review of Systems Unremarkable Yes all other systems are reviewed and are negative Constitutional: Denies chills and Denies fever(s) Eyes: Denies blurry vision and Denies change in vision Reports system reviewed and no additional complaints, except as documented, Denies vertigo and Denies dizziness Cardiovascular: Reports no additional cardiovascular complaints and Denies syncope Respiratory: Denies cough and Denies wheezing Denies vertigo, Denies dizziness and Denies syncope Psychiatric: Reports anxiety, Reports change in appetite and Reports suicidal ideation Allergic/Immunologic: Denies wheezing Mental Status Exam Mental Status Exam Narrative: Appearance: wearing hospital gown, fair hygiene, in NAD Behavior: friendly. Psychomotor: no agitation or retardation noted Speech: clear, normal rate/rhythm/volume, spontaneous TP: linear TC: hearing voices, distress by voices Mood: better Affect: congruent SI: passive HI: no AH: less CAH telling her to hurt other people and herself. VH: none Delusions: no overt but distress by voices Insight/judgment: fair x 2. Memory/cog: alert, oriented x 3. Diagnostics Vital Signs (24Hr): Vital Signs - 24 hr 06/29/22 21:11 06/30/22 09:15 Temperature 97.9 F 97.6 F Pulse Rate 86 98 Respiratory Rate 16 Blood Pressure 120/68 126/69 Pulse Oximetry 96 97 Oxygen Delivery Method Room Air Room Air BMI result Body Mass Index 34.4 Labs Results: 06/19/22 13:36 06/19/22 13:36 Medications Medications Current Medications Acetaminophen (Acetaminophen 325 Mg Tablet) 650 mg PO Q6H PRN PRN Reason: Headache/Pain Mild Scale (1-3) Last Admin: 06/26/22 21:19 Dose: 650 mg Al Hydroxide/Mg Hydroxide (Magnesium Hydrox/Alum Hydrox 30 Ml Oral.Susp) 30 ml PO Q6H PRN PRN Reason: Heartburn/Nausea Last Admin: 06/28/22 09:38 Dose: 30 ml Amlodipine Besylate (Amlodipine Besylate 10 Mg Tablet) 10 mg PO DAILY [facility]; Protocol Last Admin: 06/30/22 10:00 Dose: 10 mg Hydroxyzine HCl (Hydroxyzine Hcl 25 Mg Tablet) 25 mg PO Q6H PRN PRN Reason: Anxiety Last Admin: 06/28/22 20:42 Dose: 25 mg Ibuprofen (Ibuprofen 600 Mg Tablet) 600 mg PO BID [facility] Last Admin: 06/30/22 09:37 Dose: 600 mg Magnesium Hydroxide (Milk Of Magnesia 30 Ml Oral.Susp) 30 ml PO DAILY PRN PRN Reason: Constipation Metoprolol Succinate (Metoprolol Succinate Er 12.5 Mg Halftab.Er.24h) 12.5 mg PO BID [facility]; Protocol Last Admin: 06/30/22 09:36 Dose: 12.5 mg Omeprazole (Omeprazole 20 Mg Capsule.Dr) 20 mg PO DAILY@0630 [facility] Last Admin: 06/30/22 09:37 Dose: 20 mg Quetiapine Fumarate (Quetiapine Fumarate 25 Mg Tablet) 25 mg PO BID PRN PRN Reason: anxiety Last Admin: 06/27/22 20:10 Dose: 25 mg Quetiapine Fumarate (Quetiapine Fumarate 50 Mg Tablet) 150 mg PO BEDTIME [facility] Last Admin: 06/29/22 21:13 Dose: 150 mg Risperidone (Risperidone 1 Mg Tablet) 1 mg PO DAILY [facility] Last Admin: 06/30/22 09:37 Dose: 1 mg Risperidone (Risperidone 2 Mg Tablet) 2 mg PO BEDTIME [facility] Last Admin: 06/29/22 21:13 Dose: 2 mg Sertraline HCl (Sertraline Hcl 25 Mg Tablet) 75 mg PO DAILY [facility] Last Admin: 06/30/22 09:35 Dose: 75 mg Allergies Allergies Allergy/AdvReac Type Severity Reaction Status Date / Time No Known Allergies Allergy Verified 10/27/21 12:12 Assessment & Plan Assessment & Plan (1) MDD (major depressive disorder), single episode, severe with psychosis: Status: Acute Code(s): F32.3 - Major depressive disorder, single episode, severe with psychotic features Plan 06/27 continue current medications. 06/29/2022: No changes to current plan 06/30 continue tx. planning for dc on 07/02. I spent 25 minutes with the patient and/or on the patient floor today, greater than?50% of which was spent counseling/coordinating care. Reason for contiued inpatient stay Substantial Risk for: inability to function Time Spent With Patient Time: Total time managing care of this patient today ____ minutes.
[2022-06-30] MEDS: QUEtiapine Fumarate 50 MG TABLET 150 MG PO (21:12)
[2022-06-30] MEDS: risperiDONE 2 MG TABLET PO (21:12)
[2022-06-30 21:15] VITALS: BP 127/70; PULSE 94; RESP 16; TEMP 36.4; O2SAT 97
[2022-06-30] MEDS: hydrOXYzine HCL 25 MG TABLET PO (21:23)
[2022-07-01 06:00] VITALS: BP 116/78; PULSE 93; RESP 18; TEMP 36.1; O2SAT 96
[2022-07-01] MEDS: Ibuprofen 600 MG TABLET PO ×2 (08:38→21:05)
[2022-07-01] MEDS: risperiDONE 1 MG TABLET PO (08:39)
[2022-07-01] MEDS: amLODIPine Besylate 10 MG TABLET PO (08:39)
[2022-07-01] MEDS: Sertraline HCL 25 MG TABLET 75 MG PO (08:39)
[2022-07-01] MEDS: Metoprolol Succinate ER 12.5 MG HALFTAB.ER.24H PO ×2 (08:40→21:05)
[2022-07-01] MEDS: Omeprazole 20 MG CAPSULE.DR PO (09:11)
--- NOTE | 2022-07-01 09:51 | HO.PSYCHPN ---
Subjective Subjective Date of Service: 07/01/22 Reason For Visit: Psychosis Subjective Notes: Conditional Voluntary Interim History: Pt reports less voices but continue to hear them. She reports at times is difficult to understand what they say. She appears less fearful/hypervigilant related to voices and some degree of delusional content. She denied suicidal or homicidal ideation. She reports fair sleep. Per nursing, pt more visible and social with peers. Medication Compliance: Yes Side effects from medications: No Attending Groups: Intermittent Review of Systems Review of Systems Unremarkable Yes all other systems are reviewed and are negative Constitutional: Denies chills and Denies fever(s) Eyes: Denies blurry vision and Denies change in vision Reports system reviewed and no additional complaints, except as documented, Denies vertigo and Denies dizziness Cardiovascular: Reports no additional cardiovascular complaints and Denies syncope Respiratory: Denies cough and Denies wheezing Denies vertigo, Denies dizziness and Denies syncope Psychiatric: Reports anxiety, Reports change in appetite and Reports suicidal ideation Allergic/Immunologic: Denies wheezing Mental Status Exam Mental Status Exam Narrative: Appearance: wearing hospital gown, fair hygiene, in NAD Behavior: friendly. Psychomotor: no agitation or retardation noted Speech: clear, normal rate/rhythm/volume, spontaneous TP: linear TC: hearing voices, distress by voices Mood: better Affect: congruent SI: passive HI: no AH: less CAH telling her to hurt other people and herself. VH: none Delusions: no overt but distress by voices Insight/judgment: fair x 2. Memory/cog: alert, oriented x 3. Diagnostics Vital Signs (24Hr): Vital Signs - 24 hr 06/30/22 21:15 07/01/22 06:00 Temperature 97.6 F 97.0 F Pulse Rate 94 93 Respiratory Rate 16 18 Blood Pressure 127/70 116/78 Pulse Oximetry 97 96 Oxygen Delivery Method Room Air Room Air BMI result Body Mass Index 34.4 Labs Results: 06/19/22 13:36 06/19/22 13:36 Medications Medications Current Medications Acetaminophen (Acetaminophen 325 Mg Tablet) 650 mg PO Q6H PRN PRN Reason: Headache/Pain Mild Scale (1-3) Last Admin: 06/26/22 21:19 Dose: 650 mg Al Hydroxide/Mg Hydroxide (Magnesium Hydrox/Alum Hydrox 30 Ml Oral.Susp) 30 ml PO Q6H PRN PRN Reason: Heartburn/Nausea Last Admin: 06/28/22 09:38 Dose: 30 ml Amlodipine Besylate (Amlodipine Besylate 10 Mg Tablet) 10 mg PO DAILY [facility]; Protocol Last Admin: 07/01/22 08:39 Dose: 10 mg Hydroxyzine HCl (Hydroxyzine Hcl 25 Mg Tablet) 25 mg PO Q6H PRN PRN Reason: Anxiety Last Admin: 06/30/22 21:23 Dose: 25 mg Ibuprofen (Ibuprofen 600 Mg Tablet) 600 mg PO BID [facility] Last Admin: 07/01/22 08:38 Dose: 600 mg Magnesium Hydroxide (Milk Of Magnesia 30 Ml Oral.Susp) 30 ml PO DAILY PRN PRN Reason: Constipation Metoprolol Succinate (Metoprolol Succinate Er 12.5 Mg Halftab.Er.24h) 12.5 mg PO BID [facility]; Protocol Last Admin: 07/01/22 08:40 Dose: 12.5 mg Omeprazole (Omeprazole 20 Mg Capsule.Dr) 20 mg PO DAILY@0630 [facility] Last Admin: 07/01/22 09:11 Dose: 20 mg Quetiapine Fumarate (Quetiapine Fumarate 25 Mg Tablet) 25 mg PO BID PRN PRN Reason: anxiety Last Admin: 06/27/22 20:10 Dose: 25 mg Quetiapine Fumarate (Quetiapine Fumarate 50 Mg Tablet) 150 mg PO BEDTIME [facility] Last Admin: 06/30/22 21:12 Dose: 150 mg Risperidone (Risperidone 1 Mg Tablet) 1 mg PO DAILY [facility] Last Admin: 07/01/22 08:39 Dose: 1 mg Risperidone (Risperidone 2 Mg Tablet) 2 mg PO BEDTIME [facility] Last Admin: 06/30/22 21:12 Dose: 2 mg Sertraline HCl (Sertraline Hcl 25 Mg Tablet) 75 mg PO DAILY [facility] Last Admin: 07/01/22 08:39 Dose: 75 mg Allergies Allergies Allergy/AdvReac Type Severity Reaction Status Date / Time No Known Allergies Allergy Verified 10/27/21 12:12 Assessment & Plan Assessment & Plan (1) MDD (major depressive disorder), single episode, severe with psychosis: Status: Acute Code(s): F32.3 - Major depressive disorder, single episode, severe with psychotic features Plan 06/27 continue current medications. 06/29/2022: No changes to current plan 06/30 continue tx. planning for dc on 07/02. 07/01 continue tx. dc on 07/02. I spent minutes with the patient and/or on the patient floor today, greater than?50% of which was spent counseling/coordinating care. Reason for contiued inpatient stay Substantial Risk for: inability to function Time Spent With Patient Time: Total time managing care of this patient today ____ minutes.
[2022-07-01 20:45] VITALS: BP 125/65; PULSE 95; RESP 16; TEMP 36.4; O2SAT 100
[2022-07-01] MEDS: hydrOXYzine HCL 25 MG TABLET PO (21:05)
[2022-07-01] MEDS: risperiDONE 2 MG TABLET PO (21:05)
[2022-07-01] MEDS: QUEtiapine Fumarate 50 MG TABLET 150 MG PO (21:05)
[2022-07-02 09:39] VITALS: BP 103/57; PULSE 96; RESP 18; TEMP 36.1; O2SAT 97
[2022-07-02] MEDS: Omeprazole 20 MG CAPSULE.DR PO (09:40)
[2022-07-02] MEDS: Ibuprofen 600 MG TABLET PO (09:40)
[2022-07-02] MEDS: risperiDONE 1 MG TABLET PO (09:41)
[2022-07-02] MEDS: Metoprolol Succinate ER 12.5 MG HALFTAB.ER.24H PO (09:41)
[2022-07-02] MEDS: Sertraline HCL 25 MG TABLET 75 MG PO (09:41)
[2022-07-02] MEDS: amLODIPine Besylate 10 MG TABLET PO (09:41)
--- NOTE | 2022-07-02 11:23 | P.DS_ITS ---
DS: Providers Provider Date of Service: 07/02/22 Date of admission: 06/20/22 05:17 Primary care physician: Unknown Physician Consults: 06/26/22 14:49 Consult to Hospitalist Routine Consulting Provider: Hospitalist Reason For Exam: bilat hip pain radiating to legs new onset DS: Diagnosis Discharge Diagnosis (1) MDD (major depressive disorder), single episode, severe with psychosis: Status: Acute DS: Medications Discharge Medications Home Medications: Previous Rx's Medication Instructions Recorded amlodipine 10 mg tablet 10 mg PO DAILY #30 tabs 07/02/22 ibuprofen 600 mg tablet 600 mg PO BID #30 tabs 07/02/22 omeprazole 20 mg capsule,delayed 20 mg PO DAILY@0630 #30 caps 07/02/22 release quetiapine 100 mg tablet 100 mg PO BEDTIME #30 tabs 07/02/22 risperidone 1 mg tablet 1 mg PO DAILY #30 tabs 07/02/22 risperidone 2 mg tablet 2 mg PO BEDTIME #30 tabs 07/02/22 sertraline 100 mg tablet 100 mg PO DAILY #30 tabs 07/02/22 Mental Status Exam Mental Status Exam Narrative: Appearance: wearing hospital gown, fair hygiene, in NAD Behavior: friendly. Psychomotor: no agitation or retardation noted Speech: clear, normal rate/rhythm/volume, spontaneous TP: linear TC: hearing voices, distress by voices Mood: better Affect: congruent SI: none HI: no AH: less AH. VH: none Delusions: no overt but distress by voices Insight/judgment: fair x 2. Memory/cog: alert, oriented x 3. Data Data Completed and Pending Completed studies during hospitalization [Text1]: 06/19/22 00:00 Urine clean catch - Urine tavera top Urine Culture - Final DS: Summary Hospital Course Hospital Course: Latoya is a 51 y.o. female who carries a dx of MDD with psychotic features. She presented to [facility] ED on 06/19/22 due to command AH, increased depression. Precipitating fx include anniversary of her ?s in 06/2021 due to kidney issues. Pt known to [facility] from two prev admissions, last on M5 12/30/21- 01/10/22 due to pt holding a knife to her wrist (while holding her dog) and threatening to kill herself, gesturing knife towards family members, and command AH telling her to kill herself, others, or her dog. Her first admission to [facility] was on -11/14/21 for depression, AH, and SI. Prior to that she had no psychiatric history. She has historically been stabilized on seroquel 400 mg QHS, lithium 450 mg HS, and zoloft 50 mg. Currently pt says she has been adherent with her meds but says she is only taking half doses of her bedtime med s due to feeling they are ?too strong.? Li level <0.1 on 06/19/22. Utox negative, no alcohol abuse. Past Psychiatric History: -OP: [facility] but did not follow up with them -IP: 12/30/21-01/10/22 due to pt holding a knife to her wrist (while holding her dog) and threatening to kill herself, gesturing knife towards family members, and command AH telling her to kill herself, others, or her dog. Her first admission to [facility] was on -11/14/21 for depression, AH, and SI. No prior psych hx. -Hx of suicide attempts, has tried to cut her wrist -Past med trials: risperidone (not very effective), olanzapine (not very effective), thorazine (not very effective) -Per discharge summary from in 10/2021: pt was tried on different antipsychotics including risperidone, olanzapine and thorazine during admission but did not respond. She appeared to respond to a combination of sertraline, lithium and seroquel. Medical Evaluation Reviewed: Yes HOSPITAL COURSE Ms. Wyman was admitted on a CV and placed on 15 minutes checks for safety. Pt presented as hypervigilant and fearful related to hearing voices telling her to hurt herself and others. She also reported some sikh content of devil as she explained why she thought she was hearing these voices. She reported she cut down on medications once discharged, as she reports feeling very sedated with seroquel. After discussing risks, benefits and alternative treatment options, pt agreed to start risperidone. She reported seroquel was too sedating, but lower dose did help to sleep. Her affect gradually less fearful, less hypervigilant. She appeared to have poor memory and difficult processing information even in Croatian. She denied SI/HI. She was sleeping better without feeling overly sedated during the day. There were no incidences of disruptive behaviors nor need for restraints. Collateral information was gathered from the sister who denied any safety concerns at time of discharge. Status at Discharge Cognitive/behavioral status at discharge: Pt with brighter, non labile affect. Less AH/VH. Less sikh delusions. Pt sleeping better. No signs of aggression towards self or others. No SI/HI. Time Spent with Patient Time attestation: Total time managing care of this patient today ____ minutes. Discharge Plan Discharge Anticipated Discharge Date/Time: 07/02/22 11:17 Patient Disposition: Home, Self-Care Discharge Diagnosis: MDD with psychosis Referrals: Doris Raymundo (therapist) [Other] - 07/04/22 10:00 am (In office appointment) Camila Roger (psychiatrist) [Other] - 07/07/22 10:40 am (Telehealth appointment) Camila Roger (psychiatrist) [Other] - 08/04/22 10:00 am (Telehealth appointment) Steven Aldana ([facility] Reassessment) [Other] - 08/04/22 12:00 pm (Telehealth appointment) [facility] [Physician] - 1 Week (appt made for Thursday the @ 9:15 w/ Dr. Zelaya) Discharge Medications: New amlodipine 10 mg Tablet 10 mg PO DAILY Qty: 30 0RF Protocol: Hold for SBP< HOLD for SBP < : 90 ibuprofen 600 mg Tablet 600 mg PO BID Qty: 30 0RF quetiapine 100 mg tablet 100 mg PO BEDTIME Qty: 30 0RF risperidone 2 mg Tablet 2 mg PO BEDTIME Qty: 30 0RF risperidone 1 mg Tablet 1 mg PO DAILY Qty: 30 0RF sertraline 100 mg tablet 100 mg PO DAILY Qty: 30 0RF omeprazole 20 mg Capsule,Delayed Release(/Ec) 20 mg PO DAILY@0630 Qty: 30 0RF Discontinued trazodone 50 mg tablet 0.5 tab PO BEDTIME lithium carbonate 450 mg tablet extended release 1 tab PO BEDTIME amlodipine 10 mg tablet 1 tab PO QAM metoprolol succinate 25 mg tablet extended release 24 hr 0.5 tab PO BID sertraline 50 mg tablet 1 tab PO QAM quetiapine 400 mg tablet 1 tab PO BEDTIME Discharge Orders: Discharge Order (Routine); Ordered 07/02/22 Ordered By: Eirka Kaur Diet: Regular diet Activity on Discharge: As tolerated Stand Alone Forms: Patient Portal Discharge page, Community Support Care Plan Goals: 1. Maintain mood 2. Less AH 3. No SI/HI. Health Concerns: Follow up with PCP Plan of Treatment: 1. Take medications as prescribed 2. Go to nearest ED or call 911 in event of emergency Assessment: Pt with brighter, less fearful affect. Pt reports less AH, no SI/HI. Future oriented in that she is looking forward to see family and continue OP psych tx. No signs of aggression towards self or others. Discharge Date/Time: 07/02/22 12:28
== END 2022-07-02 12:28 | disposition home or self-care (01) | DRG 885 ==
LOC: HO.ED 17:21 → HO.PADLT16 06-20 05:24
PROVIDERS: Emergency Medicine; Nurse Practitioner Family; Registered Nurse; Admitting Provider Psychiatry & Neurology Psychiatry; Emergency Provider Emergency Medicine; Visit Provider Social Worker
DX: F32.3 Major depressive disorder, single episode, severe with psychotic features (principal); N39.0 Urinary tract infection, site not specified; M70.62 Trochanteric bursitis, left hip; M70.61 Trochanteric bursitis, right hip; Z20.822 Contact with and (suspected) exposure to COVID-19; Z91.51 Personal history of suicidal behavior; Z79.899 Other long term (current) drug therapy
CPT/HCPCS: 36415; 80048; 80061; 80178; 80307; 81001; 82077; 82607; 82746; 83036; 83735; 84439; 84443; 85025; 87086; 87635; 99285

== ENCOUNTER 2022-09-09 16:52 | Outpatient (RCR) | payer MEDICAID, SELFPAY ==
--- NOTE | 2022-09-10 09:54 | MHC.PT.EP ---
[facility] [place] Office [place] Office [place] Office [address] Clara Muñoz [address] [phone] F: [phone] F: [phone] F: [phone] F: [phone] Physical Therapy Plan of Care Date of Evaluation: Date of Surgery: Diagnosis: low back pain, pain in bilateral lower extremities (questionable plantar fasciitis, worse on R) Assessment: Patient is a 52 y.o. amharic speaking female who is referred to PT by Dr. Alyssa Campbell MD with Dx of low back pain, pain in bilateral lower extremities. PT diagnosis is likely bilateral plantar fasciitis which caused gait compensation to trigger LBP, however cannot rule out LBP with radiation to LEs at this time. Will perform continual reassessment regarding etiology of symptoms. Patient impairments include pain, limited ROM, weakness, antalgic gait. Patient current functional limitations are walking, sleeping, standing, navigating multiple stairs, putting on pants and shoes, getting up from prolonged sitting. Patient will benefit from skilled PT to address aforementioned impairments and functional limitations to meet established goals. Frequency and Duration: The patient will be seen 2x/week for 4 weeks Short Term Goals: 2 weeks Patient demonstrates consistency and independence with HEP to self manage symptoms. Patient presents with increased R ankle DF 0 degrees to normalize gait pattern and reduce pain to 5/10 on pain scale. Penitentiary Goals: 4 weeks Patient presents with increased lumbar flexion 90 degrees to be able to put on pants/shoes without difficulty. Patient presents with increased hip flexion strength 5/5 to be able to ascend/descend multiple steps with railing. Treatment Plan: Modalities to reduce pain, spasms and effusion. Manual therapy to restore motion and function. Therapeutic exercise to improve strength and flexibility. Neuromuscular re-education for posture and balance. Therapeutic activities to return to functional activities of daily living. Electronically signed by: Slime Florentino, PT, DPT Please sign and return to therapist. Thank you for your referral.
--- NOTE | 2022-10-20 10:16 | MHC.PT.DC ---
[facility] [place] Office [place] Office [place] Office [address] Clara Muñoz [address] [facility] [phone] F: [phone] F: [phone] F: [phone] F: [phone] Physical Therapy Discharge Report Diagnosis: low back pain, pain in bilateral lower extremities (questionable plantar fasciitis, worse on R) Date of Surgery: Date of Evaluation: 09/09/22 Date of Discharge: 10/20/22 Treatments to Date: 1 Cancellations to Date: 2 No Shows to Date: 3 Discharge Status: Visit Non-compliance Discharge Summary: Patient did not attend any FUP visits after her initial evaluation. She is therefore discharged from PT at this time. Electronically signed by: Slime Florentino, PT, DPT Please sign and return to therapist. Thank you for your referral.
== END 2022-10-20 10:16 | disposition home or self-care (01) ==
LOC: HO.PT 16:52
PROVIDERS: PCP Internal Medicine; Visit Provider Internal Medicine
DX: M79.604 Pain in right leg (principal); M54.50 Low back pain, unspecified
CPT/HCPCS: 97110; 97161

== ENCOUNTER 2022-10-15 10:47 | Outpatient (REF) | payer MEDICAID, SELFPAY ==
--- NOTE | ~2022-10-15 | US_ITS ---
EXAMINATION: US VENOUS ULTRASOUND WITH DOPPLER LOWER EXTREMITY, BILATERAL CLINICAL INFORMATION: Lower extremity pain. Assess for occult DVT. COMPARISON: None available. TECHNIQUE: Ultrasound of the deep veins is performed from the hip to the calf with compression sonography and color and pulse Doppler assessment. Spectral analysis with color-flow imaging is performed. FINDINGS: RIGHT: There is normal venous compression and respiratory variation and augmented flow. The visualized common femoral vein, superficial femoral vein, profunda femoral vein, popliteal vein, and the trifurcation region shows no evidence of deep venous thrombosis. No popliteal fossa cyst. LEFT: There is normal venous compression and respiratory variation and augmented flow. The visualized common femoral vein, superficial femoral vein, profunda femoral vein, popliteal vein, and the trifurcation region shows no evidence of deep venous thrombosis. No popliteal fossa cyst. US/US venous duplex LE BI IMPRESSION: No DVT demonstrated in the bilateral lower extremity.
== END 2022-10-15 10:48 | disposition home or self-care (01) ==
LOC: HO.US 10:47
PROVIDERS: PCP Internal Medicine; Visit Provider Internal Medicine
DX: M79.604 Pain in right leg (principal); M79.605 Pain in left leg
CPT/HCPCS: 93970

== ENCOUNTER 2022-11-03 11:05 | Outpatient (REF) | payer MEDICAID, SELFPAY ==
--- NOTE | ~2022-11-03 | MM_ITS ---
EXAMINATION: MM SCREENING DIGITAL BREAST TOMOSYNTHESIS, BILATERAL CLINICAL INFORMATION: Screening. Asymptomatic. The lifetime risk of breast cancer based on the Tyrer-Cuzick Model is 18.5%. COMPARISON: Mammography: June 07, 2020 and studies dating back to September 14, 2013 TECHNIQUE: Digital breast tomosynthesis is performed in both the craniocaudal and mediolateral oblique views along with computer-aided detection (CAD). Synthesized 2D images are generated from the tomosynthesis. FINDINGS: The breasts are extremely dense, which lowers the sensitivity of mammography (ACR BI-RADS breast composition Category d). There are no new significant masses, abnormal calcifications, or other abnormalities. MM/MM tomosynthesis screening BI IMPRESSION: No significant changes from prior exam. ASSESSMENT: BI-RADS 1: Negative RECOMMENDATION: Routine annual mammography screening. This patient's information was entered into a reminder system with a target due date for their next mammogram.
== END 2022-11-03 11:06 | disposition home or self-care (01) ==
LOC: HO.MAMMO 11:05
PROVIDERS: PCP Internal Medicine; Visit Provider Internal Medicine
DX: Z12.31 Encounter for screening mammogram for malignant neoplasm of breast (principal)
CPT/HCPCS: 77063; 77067

== ENCOUNTER 2022-12-27 14:48 | Emergency (ER) | payer MEDICAID, SELFPAY ==
--- NOTE | ~2022-12-27 | XR_ITS ---
EXAMINATION: XR CHEST CLINICAL INFORMATION: Cough COMPARISON: None available. TECHNIQUE: 2 views of the chest were obtained. FINDINGS: The cardiac and mediastinal contours are normal. The lungs are clear. No pleural effusion or pneumothorax. There are degenerative changes of the spine. XR/XR chest 2V IMPRESSION: No evidence for acute disease in the chest.
--- NOTE | 2022-12-27 15:22 | ED_ITS ---
HPI - Abdominal Pain General Chief Complaint: Upper Respiratory Symptoms Stated Complaint: cough Time Seen by Provider: 12/27/22 17:02 History of Present Illness HPI narrative: Patient complains of cough productive of sputum time several days, as well as pain in her chest wall when she coughs but only when she coughs she has no other chest pain, she denies any shortness of breath no nausea vomiting, her pain is only related to coughing, not related to exertion in any way no nausea vomiting or sweating no feeling faint no passing-out The cough is productive of sputum , she does have some nasal congestion She has no sore throat no difficulty swallowing no abdominal pain no nausea v omiting or diarrhea no leg pain no leg swelling no skin rash Related Data Previous Rx's Medication Instructions Recorded amlodipine 10 mg tablet 10 mg PO DAILY #30 tabs 07/02/22 ibuprofen 600 mg tablet 600 mg PO BID #30 tabs 07/02/22 omeprazole 20 mg capsule,delayed 20 mg PO DAILY@0630 #30 caps 07/02/22 release quetiapine 100 mg tablet 100 mg PO BEDTIME #30 tabs 07/02/22 risperidone 1 mg tablet 1 mg PO DAILY #30 tabs 07/02/22 risperidone 2 mg tablet 2 mg PO BEDTIME #30 tabs 07/02/22 sertraline 100 mg tablet 100 mg PO DAILY #30 tabs 07/02/22 amlodipine 10 mg tablet 10 mg PO DAILY #30 tabs 07/31/22 risperidone 1 mg tablet 1 mg PO DAILY #30 tabs 07/31/22 risperidone 2 mg tablet 2 mg PO BEDTIME #30 tabs 07/31/22 sertraline 100 mg tablet 100 mg PO DAILY #30 tabs 07/31/22 benzonatate 200 mg capsule 200 mg PO BID PRN cough #14 caps 12/27/22 doxycycline hyclate 100 mg tablet 100 mg PO BID 5 days #10 tabs 12/27/22 ibuprofen 600 mg tablet 600 mg PO Q6H PRN pain #20 tabs 12/27/22 Allergies Allergy/AdvReac Type Severity Reaction Status Date / Time No Known Allergies Allergy Verified 10/27/21 12:12 [facility] Past Medical History Medical History Anxiety Social History Social History Household Members: None Household Members Other:: Mother Housing: Apartment Do you presently have visiting nurse or other home services: No Unable to assess alcohol history related to: Unknown Alcohol intake: current Alcohol intake frequency: a few times a week Alcohol type: hard liquor Patient Tobacco Use Status: Never used Tobacco e-Cigarette/Vaping Use: Never Used Advance Directives: No Advance Directives Information Provided: No service: No Sexual orientation: Straight/Heterosexual Physical Exam ED Vital Signs: Vital Signs - 24 hr 12/27/22 15:27 Temperature 98.9 F Pulse Rate 118 H Respiratory Rate 18 Blood Pressure 137/89 Pulse Oximetry 95 Oxygen Delivery Method Room Air BMI result Body Mass Index 35.9 Tachycardia is noted, I did recheck it twice, 1st time a recheck it was 92 then prior to discharge I recheck again it was 88 General appearance is no acute distress comfortable cooperative no respiratory distress Eyes no redness or discharge The sinuses nontender The pharynx is clear The chest is clear to auscultation no adventitious sounds with good air entry Heart no murmur Abdomen soft nontender Extremities full range of motion x4 without edema no calf tenderness no swelling of calf The skin no rash Course Course Course Narrative: RME - 52 yo Palau[place] speaking female with history of anxiety and depression who presents to the ER for evaluation of SOB, chest pain when she coughs since yesterday. Endorses chills and subjective fevers at home. No pulmonary history. Tachycardic 110s in triage, afebrile and speaking in complete sentences. Lungs CTAB but difficulty taking a deep breath without coughing. Plan: EKG, CXR, COVID, labs Chest x-ray was negative, chemistry was normal including troponin under 2.7, CBC was normal Patient was initially tachycardic but without treatment her repeat pulse done by me was 88, she is tolerating fluids she is not short of breath and was comfortable throughout her ER visit She is discharged with diagnosed bronchitis, no evidence of any respiratory distress, patient remains comfortable cheerful cooperative throughout visit and is discharged Medical Decision Making Lab Data [facility] Lab Attestation statement: I reviewed the patient's lab results. 12/27/22 16:09 12/27/22 16:09 Labs: Lab Results 12/27/22 12/27/22 12/27/22 Range/Units 16:09 16:09 16:09 WBC 4.6 L (4.8-10.8) X10*3/uL RBC 4.53 (4.20-5.50) X10*6/uL Hgb 12.7 (12.0-16.0) g/dl Hct 40.7 (37.0-47.0) % MCV 89.8 (80.0-98.0) fL MCH 28.0 (27.0-33.0) pg MCHC 31.2 (31.0-35.0) g/dl RDW 15.0 (11.0-16.0) % Plt Count 250 D (160-400) X10*3/uL MPV 9.6 (9.4-12.3) fL Immature Gran % (Auto) 0.4 (0.0-0.4) % Neut % (Auto) 65.5 (45-73) % Lymph % (Auto) 22.0 (20-40) % [place] % (Auto) 11.0 (2-11) % Eos % (Auto) 0.9 (0-4) % Baso % (Auto) 0.2 (0-2) % Lymph # (Auto) 1.0 L (1.2-4.9) X10*3/uL [place] # (Auto) 0.5 (0.1-1.2) X10*3/uL Eos # (Auto) 0.0 (0.0-0.4) X10*3/uL Baso # (Auto) 0.0 (0.0-0.2) X10*3/uL Abs Immat Gran (auto) 0.02 (0.00-0.03) X10*3/uL Absolute Neuts (auto) 3.0 (2.0-8.3) x10*3/uL Absolute Nucleated RBC 0.000 (0.0-0.012) X10*3/uL Nucleated RBC % (auto) 0.0 (0.0-0.2) /100WBC Sodium 143 (135-145) mmol/L Potassium 3.9 (3.3-5.1) mmol/L Chloride 108 (96-108) mmol/L Carbon Dioxide 25 (22-29) mmol/L Anion Gap 14 (12-20) BUN 14 (9-16) mg/dL Creatinine 0.95 (0.5-1.4) mg/dL Estim Creat Clear Calc 65.0 Estimated GFR > 60 Random Glucose 116 H (60-115) mg/dL Calcium 9.6 (8.4-10.2) mg/dL Magnesium 2.5 (1.6-2.6) mg/dL Total Bilirubin 0.3 (0.0-1.0) mg/dL Direct Bilirubin 0.1 (0.0-0.5) mg/dL AST 29 (5-31) U/L ALT 33 H (0-31) U/L Alkaline Phosphatase 94 (39-117) U/L Troponin I High Sens < 2.7 (<3.5-17.0) ng/L Total Protein 7.7 (6.5-8.0) g/dL Albumin 4.5 (3.5-5.0) g/dL COVID-19 (IRVIN) (Negative) COVID-19 Clin Com 12/27/22 Range/Units 16:09 WBC (4.8-10.8) X10*3/uL RBC (4.20-5.50) X10*6/uL Hgb (12.0-16.0) g/dl Hct (37.0-47.0) % MCV (80.0-98.0) fL MCH (27.0-33.0) pg MCHC (31.0-35.0) g/dl RDW (11.0-16.0) % Plt Count (160-400) X10*3/uL MPV (9.4-12.3) fL Immature Gran % (Auto) (0.0-0.4) % Neut % (Auto) (45-73) % Lymph % (Auto) (20-40) % [place] % (Auto) (2-11) % Eos % (Auto) (0-4) % Baso % (Auto) (0-2) % Lymph # (Auto) (1.2-4.9) X10*3/uL [place] # (Auto) (0.1-1.2) X10*3/uL Eos # (Auto) (0.0-0.4) X10*3/uL Baso # (Auto) (0.0-0.2) X10*3/uL Abs Immat Gran (auto) (0.00-0.03) X10*3/uL Absolute Neuts (auto) (2.0-8.3) x10*3/uL Absolute Nucleated RBC (0.0-0.012) X10*3/uL Nucleated RBC % (auto) (0.0-0.2) /100WBC Sodium (135-145) mmol/L Potassium (3.3-5.1) mmol/L Chloride (96-108) mmol/L Carbon Dioxide (22-29) mmol/L Anion Gap (12-20) BUN (9-16) mg/dL Creatinine (0.5-1.4) mg/dL Estim Creat Clear Calc Estimated GFR Random Glucose (60-115) mg/dL Calcium (8.4-10.2) mg/dL Magnesium (1.6-2.6) mg/dL Total Bilirubin (0.0-1.0) mg/dL Direct Bilirubin (0.0-0.5) mg/dL AST (5-31) U/L ALT (0-31) U/L Alkaline Phosphatase (39-117) U/L Troponin I High Sens (<3.5-17.0) ng/L Total Protein (6.5-8.0) g/dL Albumin (3.5-5.0) g/dL COVID-19 (IRVIN) Negative (Negative) COVID-19 Clin Com See Note Discharge Plan Discharge Clinical Impression: Bronchitis Patient Disposition: Home, Self-Care Additional Instructions: Chest x-ray and COVID test were normal Other labs were normal as well Your exam did not show any sign of any dangerous or serious illness We are treating bronchitis with antibiotic and cough medicine as well as Motrin if needed for aches and pains Return any time for difficulty breathing any worse condition or any concerns If not better next week follow with your doctor It is a good idea to repeat COVID testing in a day or 2 before you go back to work Prescriptions: New doxycycline hyclate 100 mg tablet 100 mg PO BID 5 Days Qty: 10 0RF benzonatate 200 mg capsule 200 mg PO BID PRN (Reason: cough) Qty: 14 0RF ibuprofen 600 mg tablet 600 mg PO Q6H PRN (Reason: pain) Qty: 20 0RF No Action amlodipine 10 mg Tablet 10 mg PO DAILY Qty: 30 0RF Protocol: Hold for SBP< HOLD for SBP < : 90 ibuprofen 600 mg Tablet 600 mg PO BID Qty: 30 0RF quetiapine 100 mg tablet 100 mg PO BEDTIME Qty: 30 0RF risperidone 2 mg Tablet 2 mg PO BEDTIME Qty: 30 0RF risperidone 1 mg Tablet 1 mg PO DAILY Qty: 30 0RF sertraline 100 mg tablet 100 mg PO DAILY Qty: 30 0RF omeprazole 20 mg Capsule,Delayed Release(Dr/Ec) 20 mg PO DAILY@0630 Qty: 30 0RF amlodipine 10 mg tablet 10 mg PO DAILY Qty: 30 0RF risperidone 1 mg tablet 1 mg PO DAILY Qty: 30 0RF risperidone 2 mg tablet 2 mg PO BEDTIME Qty: 30 0RF sertraline 100 mg tablet 100 mg PO DAILY Qty: 30 0RF Stand Alone Forms: Work/School Release
[2022-12-27 15:27] VITALS: BP 137/89; PULSE 118; RESP 18; TEMP 37.2; O2SAT 95; BMI 35.9
[2022-12-27 16:13] LABS: MANUAL DIFF FLAG NO
[2022-12-27 16:28] LABS: Basophils Percent Auto 0.2 % (0-2); Eosinophils Percent Auto 0.9 % (0-4); Hematocrit 40.7 % (37.0-47.0); Hemoglobin 12.7 g/dl (12.0-16.0); Imm Gran Abs Auto 0.02 X10*3/uL (0.00-0.03); Imm Gran Pct Auto 0.4 % (0.0-0.4); Mean Corpuscular HGB Conc 31.2 g/dl (31.0-35.0); Mean Corpuscular Volume 89.8 fL (80.0-98.0); Mean Platelet Volume 9.6 fL (9.4-12.3); Monocytes Absolute Auto 0.5 X10*3/uL (0.1-1.2); Neutrophils Percent Auto 65.5 % (45-73); Platelet Count 250 X10*3/uL (160-400); Red Blood Count 4.53 X10*6/uL (4.20-5.50); White Blood Count 4.6 X10*3/uL (4.8-10.8)
[2022-12-27 16:29] LABS: COVID-19 Test Negative (Negative); IDNOW Serial# 08D9AD1C
[2022-12-27 16:31] LABS: Alanine Aminotransferase 33 U/L (0-31); Albumin Level 4.5 g/dL (3.5-5.0); Alkaline Phosphatase 94 U/L (39-117); Anion Gap 14 (12-20); Aspartate Amino Transferase 29 U/L (5-31); Bilirubin Direct 0.1 mg/dL (0.0-0.5); Bilirubin Total 0.3 mg/dL (0.0-1.0); Blood Urea Nitrogen 14 mg/dL (9-16); Calcium 9.6 mg/dL (8.4-10.2); Carbon Dioxide 25 mmol/L (22-29); Chloride 108 mmol/L (96-108); Estimated Glomerular Filt Rate > 60; Glucose Random 116 mg/dL (60-115); Magnesium 2.5 mg/dL (1.6-2.6); Potassium 3.9 mmol/L (3.3-5.1); Sodium 143 mmol/L (135-145); Total Protein 7.7 g/dL (6.5-8.0)
[2022-12-27 16:40] LABS: Troponin-I High Sensitivity < 2.7 ng/L (<3.5-17.0)
--- OUTSIDE RECORDS SUMMARY | 2022-12-27 17:47 | XMS_ITS | Continuity of Care Document ---
Author Name Unknown Organization [facility] Address [address] [place] [id number] Care Team Providers Care Transfer Station Operator Name Role Phone Not on Staff, PCP Primary Care Physician Unavail able Encounter [facility] Date(s): 09/10/21 - 10/11/[address] [id number]- Attending Physician: Delano Borja MD Admitting Physician: Delano Borja MD Referring Physician: Ruben Mesa
== END 2022-12-27 18:42 | disposition home or self-care (01) ==
PROVIDERS: Physician Assistant; Emergency Provider Emergency Medicine; PCP Internal Medicine
DX: J40 Bronchitis, not specified as acute or chronic (principal); Z20.822 Contact with and (suspected) exposure to COVID-19
CPT/HCPCS: 71046; 80048; 80076; 83735; 84484; 85025; 87635; 99282; 99283

== ENCOUNTER 2023-02-23 15:52 | Outpatient (REF) | payer MEDICAID, SELFPAY ==
--- NOTE | ~2023-02-23 | XR_ITS ---
EXAMINATION: XR CHEST CLINICAL INFORMATION: Cough for one week. COMPARISON: 12/27/2022 chest radiographs. TECHNIQUE: 2 views of the chest were obtained. FINDINGS: No significant abnormality is noted involving the heart, lungs, mediastinum, bony thorax or soft tissues. XR/XR chest 2V IMPRESSION: No acute cardiopulmonary process.
== END 2023-02-23 15:53 | disposition home or self-care (01) ==
LOC: HO.HHCX 15:52
PROVIDERS: Visit Provider Registered Nurse
DX: U07.1 COVID-19 (principal); R07.89 Other chest pain
CPT/HCPCS: 71046

== ENCOUNTER 2024-05-09 10:13 | Outpatient (REF) | payer MEDICAID, SELFPAY ==
--- NOTE | ~2024-05-09 | MM_ITS ---
EXAMINATION: MM SCREENING DIGITAL BREAST TOMOSYNTHESIS, BILATERAL CLINICAL INFORMATION: Screening. Asymptomatic. COMPARISON: Mammography: Comparison is made with available priors TECHNIQUE: Digital breast mammography with tomosynthesis is performed in both the craniocaudal and mediolateral oblique views along with computer-aided detection (CAD). FINDINGS: The breasts are heterogeneously dense, which may obscure small masses (ACR BI-RADS breast composition Category c). There are no significant masses, abnormal calcifications, or other abnormalities. MM/MM tomosynthesis screening BI IMPRESSION: No mammographic evidence of malignancy. ASSESSMENT: BI-RADS BI-RADS 1 - Negative RECOMMENDATION: Routine annual mammography screening. 1 year F/U This examination should not preclude the clinical evaluation of a suspicious palpable abnormality. This patient's information was entered into a reminder system with a target due date for their next mammogram. Electronically signed by: Marlene Schultz DO 05/20/2024 10:08 AM EDJoycelyn
== END 2024-05-09 10:14 | disposition home or self-care (01) ==
LOC: HO.MAMMO 10:13
PROVIDERS: PCP Internal Medicine; Visit Provider Internal Medicine
DX: Z12.31 Encounter for screening mammogram for malignant neoplasm of breast (principal)
CPT/HCPCS: 36415; 77063; 77067; 80053; 80061; 82306; 83036; 84443; 85025

== ENCOUNTER → 2024-05-09 10:15 | Outpatient (BNV) | payer MEDICAID, SELFPAY | PROVIDERS: PCP Internal Medicine; Visit Provider Internal Medicine | DX: Z12.31 Encounter for screening mammogram for malignant neoplasm of breast (principal) | CPT/HCPCS: 77063; 77067 ==

== ENCOUNTER 2024-05-09 11:11 | Outpatient (REF) | payer MEDICAID, SELFPAY ==
[2024-05-09 13:23] LABS: MANUAL DIFF FLAG NO
[2024-05-09 13:34] LABS: Basophils Percent Auto 0.5 % (0-2); Eosinophils Absolute Auto 0.2 X10*3/uL (0.0-0.4); Eosinophils Percent Auto 2.6 % (0-4); Hematocrit 41.2 % (37.0-47.0); Hemoglobin 12.9 g/dl (12.0-16.0); Imm Gran Abs Auto 0.03 X10*3/uL (0.00-0.03); Imm Gran Pct Auto 0.4 % (0.0-0.4); Lymphocytes Absolute Auto 2.6 X10*3/uL (1.2-4.9); Lymphocytes Percent Auto 33.8 % (20-40); Mean Corpuscular HGB Conc 31.3 g/dl (31.0-35.0); Mean Corpuscular Hemoglobin 27.8 pg (27.0-33.0); Mean Corpuscular Volume 88.8 fL (80.0-98.0); Mean Platelet Volume 9.9 fL (9.4-12.3); Monocytes Absolute Auto 0.4 X10*3/uL (0.1-1.2); Monocytes Percent Auto 4.9 % (2-11); Neutrophils Absolute Auto 4.5 x10*3/uL (2.0-8.3); Neutrophils Percent Auto 57.8 % (45-73); Platelet Count 323 X10*3/uL (160-400); Red Blood Count 4.64 X10*6/uL (4.20-5.50); Red Cell Distribution Width 14.6 % (11.0-16.0); White Blood Count 7.8 X10*3/uL (4.8-10.8)
[2024-05-09 13:42] LABS: Estimated Average Glucose 123 mg/dL; Hemoglobin A1C 134.0683 umol/L; Hemoglobin A1c % 5.9 % (<6.0)
[2024-05-09 14:40] LABS: Alanine Aminotransferase 27 U/L (0-31); Albumin Level 4.3 g/dL (3.5-5.0); Alkaline Phosphatase 99 U/L (39-117); Anion Gap 10 (12-20); Aspartate Amino Transferase 22 U/L (5-31); Bilirubin Total 0.3 mg/dL (0.0-1.0); Blood Urea Nitrogen 16 mg/dL (9-16); Calcium 9.5 mg/dL (8.4-10.2); Carbon Dioxide 26 mmol/L (22-29); Chloride 108 mmol/L (96-108); Cholesterol 200 mg/dL (<200); Estimated Glomerular Filt Rate > 60; Glucose Random 97 mg/dL (60-115); HDL Cholesterol 50 mg/dL (>40); LDL Cholesterol Calculated 123 mg/dL (<100); Potassium 3.6 mmol/L (3.3-5.1); Sodium 140 mmol/L (135-145); Total Protein 7.6 g/dL (6.5-8.0); Triglycerides 138 mg/dL (<150)
[2024-05-09 14:41] LABS: TSH reflex Free T4 2.17 uIU/mL (0.32-4.0); Vitamin D 25-OH Total 31.5 ng/mL (>30)
== END 2024-05-09 11:12 | disposition home or self-care (01) ==
LOC: HO.HHCL 11:11
PROVIDERS: Visit Provider Internal Medicine
DX: E66.01 Morbid (severe) obesity due to excess calories (principal); Z68.37 Body mass index [BMI] 37.0-37.9, adult
CPT/HCPCS: 36415; 80053; 80061; 82306; 83036; 84443; 85025

== ENCOUNTER 2024-06-28 12:08 | Outpatient (REF) | payer MEDICAID, SELFPAY ==
--- NOTE | ~2024-06-28 | XR_ITS ---
EXAMINATION: XR CHEST CLINICAL INFORMATION: Acute cough. COMPARISON: Most recent chest radiograph dated 02/23/2023. TECHNIQUE: 2 views of the chest were obtained. FINDINGS: Left lower lobe airspace opacity, new when compared to the prior chest radiograph and consistent with pneumonia. No pleural effusion or pneumothorax. Stable cardiomediastinal silhouette. XR/XR chest 2V IMPRESSION: Left lower lobe pneumonia, new when compared to the prior chest radiograph. Electronically signed by: Rohan Bernstein MD 06/28/2024 04:[address] [facility]
== END 2024-06-28 12:09 | disposition home or self-care (01) ==
LOC: HO.XRAY 12:08
PROVIDERS: PCP Internal Medicine; Visit Provider Nurse Practitioner Family
DX: R05.1 Acute cough (principal); J40 Bronchitis, not specified as acute or chronic
CPT/HCPCS: 71046

== ENCOUNTER 2025-07-01 08:39 | Outpatient (REF) | payer MEDICAID, SELFPAY | END 2025-07-01 08:40 | disposition home or self-care (01) | LOC: HO.MAMMO 08:39 | PROVIDERS: PCP Internal Medicine; Visit Provider Internal Medicine | DX: Z12.31 Encounter for screening mammogram for malignant neoplasm of breast (principal) | CPT/HCPCS: 77063; 77067 ==

== ENCOUNTER → 2025-07-01 08:45 | Outpatient (BNV) | payer MEDICAID, SELFPAY | PROVIDERS: PCP Internal Medicine; Visit Provider Internal Medicine | DX: Z12.31 Encounter for screening mammogram for malignant neoplasm of breast (principal) | CPT/HCPCS: 77063; 77067 ==